=== PATIENT | male | born 1935 | race Caucasian/White ===

== ENCOUNTER 2023-01-27 10:10 | Outpatient (REF) | payer MEDICARE, SELFPAY ==
--- NOTE | ~2023-01-27 | XR_ITS ---
EXAMINATION: XR RIBS, LEFT CLINICAL INFORMATION: Contusion, fall COMPARISON: No prior exam available. TECHNIQUE: Chest frontal, multiple 5 oblique views. FINDINGS: RIBS: Mildly displaced fractures of the lateral aspect of the ninth rib. LUNGS AND FARIDA: There is infiltrate/atelectasis at left lung base. Blunting of left costophrenic angle probably small pleural effusion. PLEURA: Normal. Costophrenic angles are sharp, no pneumothorax. HEART: The heart is normal in size. MEDIASTINUM: The mediastinum is within normal limits.. XR/XR ribs LT min 3V w CXR1V IMPRESSION: * Mildly displaced fracture of the lateral aspect of the left ninth rib. * Infiltrate/atelectasis at left lung base. * Blunting of left costophrenic angle probably small pleural effusion.
== END 2023-01-27 10:11 | disposition home or self-care (01) ==
LOC: HO.HMGCX 10:10
PROVIDERS: Visit Provider Physician Assistant Medical
DX: S20.212A Contusion of left front wall of thorax, initial encounter (principal)
CPT/HCPCS: 71101

== ENCOUNTER 2023-03-22 07:47 | Inpatient (IN) | payer OTHER, MEDICARE, SELFPAY ==
[2023-03-22] VITALS (10 sets, daily range): BP systolic 108–166; BP diastolic 43–62; PULSE 76–101; RESP 12–24; TEMP 36.7–37.2; O2SAT 88–98; BMI 32.8; BMI 31.9
--- NOTE | ~2023-03-22 | US_ITS ---
EXAMINATION: BILATERAL LOWER EXTREMITY DEEP VENOUS ULTRASOUND CLINICAL INFORMATION: Bilateral lower extremity pain and swelling. COMPARISON: No similar prior examinations are available for comparison. TECHNIQUE: Duplex Doppler imaging with compression maneuvers were performed of the bilateral lower extremity deep venous systems. FINDINGS: The bilateral visualized common femoral, femoral and popliteal veins demonstrate normal compressibility and color flow without evidence of venous thrombosis. Visualized portions of the bilateral calf veins demonstrate normal color fill-in suggesting patency. There is no evidence of a Marsh's cyst. US/US venous duplex LE BI IMPRESSION: No evidence of deep venous thrombosis involving the bilateral lower extremities.
--- NOTE | ~2023-03-22 | XR_ITS ---
EXAMINATION: XR CHEST CLINICAL INFORMATION: Shortness of breath, hypoxia. COMPARISON: 01/27/2023 chest and rib radiographs. TECHNIQUE: Frontal view of the chest was obtained. FINDINGS: Mild increased pulmonary vascular markings are seen. Mild bibasilar linear markings. The heart and mediastinal structures are unremarkable multilevel sternotomy wires are seen in place. The superior most wire is fractured without significant displacement or change. 3 bone anchors overlie the right humeral head. XR/XR chest 1V IMPRESSION: Mild interval decrease in left basilar atelectasis/scarring. Mild increased residual markings could represent chronic changes/baseline for the patient. Mild congestion cannot be excluded.
--- NOTE | ~2023-03-22 | XR_ITS ---
EXAMINATION: XR ANKLE, LEFT CLINICAL INFORMATION: Abdominal pain, history of surgery. COMPARISON: None available. TECHNIQUE: AP, lateral, and mortise views of the left ankle. An indicator arrow points to the lateral malleolus. FINDINGS: Nonacute appearing deformity of the medial malleolus and distal fibula is seen. Mild tibiotalar degenerative joint changes are seen. The tarsal bones are normally aligned. Mild to moderate soft tissue swelling. XR/XR ankle LT min 3V IMPRESSION: 1. Nonacute appearing deformity of the medial malleolus and distal fibula suggesting old healed fractures. Mild to moderate soft tissue swelling. No overt acute fracture. 2. Mild tibiotalar osteoarthritis.
--- NOTE | ~2023-03-22 | CT_ITS ---
EXAMINATION: CT ANKLE WITH CONTRAST, LEFT CLINICAL INFORMATION: Left ankle pain. Evaluate for infection. COMPARISON: Radiographs 03/22/2023 TECHNIQUE: CT of the left ankle is performed following intravenous administration of 85 mL Omnipaque 350 iodinated contrast. Sagittal and coronal reformats were performed. This CT examination was performed using dose optimization techniques as appropriate, variously including the following: *Automated exposure control *Adjustment of mA and/or kV according to patient size (this includes techniques or standardized protocols for targeted exams where dose is matched to indication/reason for exam; i.e. extremities or head) *Use of iterative reconstruction technique DLP: 171mGy-cm FINDINGS: Postsurgical changes with evidence of previous hardware including an intramedullary nail of the distal tibia extended through the posterior aspect of the talus and the anterior aspect of the calcaneus, through the anterior aspect of the posterior subtalar facet joint. No effusion is evident. There is a predominantly ununited transverse fracture of the medial malleolus. A fracture of the distal fibula is nearly completely healed. There is an ununited fracture fragment at the lateral process of the talus. Bimalleolar subcutaneous edema without a localized or peripherally enhancing collection to indicate an abscess. The tract of prior hardware has a thin sclerotic margin, without evidence to suggest osteomyelitis. No erosions are demonstrated that would indicate osteomyelitis elsewhere. No acute osseous abnormality is evident. Diffuse vascular calcifications. CT/CT ankle LT w IV con IMPRESSION: Postsurgical changes with evidence of previous hardware placement as described. No evidence of osteomyelitis. No effusion. Bimalleolar subcutaneous edema without a localized or peripherally enhancing collection to indicate an abscess.
--- NOTE | 2023-03-22 07:59 | ED.EXTPRO ---
HPI - Extremity Problem General Chief complaint: Extremity Problem Stated complaint: PAIN/SWELLING R ANKLE SINCE YESTERDAY,INJURY UNK, Time Seen by Provider: 03/22/23 07:56 Source: patient, EMS and old records reviewed Mode of arrival: ambulatory Limitations: altered mental status (dementia) History of Present Illness HPI Narrative: 87-year-old male with history of dementia, diabetes, COPD on PRN O2, hx DVT/PE on Eliquis, recent fall with rib fractures in January,history of left ankle fracture s/p surgery complicated by septic arthritis requiring hardware removal in 2020 who presents to the ER from home for evaluation of left ankle pain and generalized weakness, unable to walk. Patient is a limited historian and offers no physical complaints on arrival. Patient's reports that last night he was up every hour or urinating. She is to use the urinal issues unable to bear weight on his left lower extremity. She reports he was complaining of pain in his left ankle. She thinks it is more swollen than usual. She denies any trauma or recent falls. Patient was on the toilet this morning and she was unable to get him up, he was very weak so she called 911. He has not had any fever or chills at home per his . Patient denies any chest pain, abdominal pain. He states his breathing is ?okay. He has not been using his PRN O2 at home. MD Complaint: extremity pain and extremity swelling Onset (ago): unknown Location: left and lower extremity Radiation: none Relieving factors: rest Exacerbating factors: range of motion, weight bearing, walking and palpation Associated symptoms: denies other symptoms Related Data Home Medications Medication Instructions Recorded Confirmed apixaban 5 mg tablet 5 mg PO BID 01/27/23 flash glucose sensor (FreeStyle #1 ea 01/27/23 Reva 14 Day Sensor kit) fluticasone furoate 50 inhalation 01/27/23 mcg/actuation blister powder for inhalation furosemide 40 mg tablet 40 mg PO DAILY 01/27/23 glucose 4 gram chewable tablet 4 g PO Q15M PRN 01/27/23 (Dex4 Glucose) insulin aspart U-100 100 unit/mL 20 unit subcut BID 01/27/23 (3 mL) subcutaneous pen (Novolog FlexPen U-100 Insulin aspart) insulin glargine 100 unit/mL 15 unit subcut QAM 01/27/23 subcutaneous solution neomycin 3.5 mg/g-polymyxin B ophthalmic (eye) 01/27/23 10,000 unit/g-dexameth 0.1 % eye oint pravastatin 40 mg tablet 40 mg PO DAILY 01/27/23 quetiapine 25 mg tablet 25 mg PO DAILY 01/27/23 Previous Rx's Medication Instructions Recorded cyclobenzaprine 5 mg tablet 5 mg PO TID PRN muscle spasm #14 01/27/23 tabs doxycycline monohydrate 100 mg 100 mg PO BID 7 days #14 caps 01/27/23 capsule Allergies Allergy/AdvReac Type Severity Reaction Status Date / Time codeine [Codeine] Allergy Unknown UNKNOWN Unverified 01/27/23 09:30 tetanus toxoid, adsorbed Allergy Unknown UNKNOWN Unverified 01/27/23 09:30 [Tetanus Toxoid,Adsorbed] Review of Systems Review of Systems: Yes all other systems are reviewed and are negative [facility] Social History Social History Alcohol intake: never Smoked in Last 30 Days: No Use of substances other than those prescribed or required for medical reasons: No Advance Directives: No Advance Directives Information Provided: Yes Physical Exam Vital Signs: Vital Signs: Last Vital Signs Temp 98.0 F 03/22/23 10:00 Pulse 94 03/22/23 12:42 Resp 12 03/22/23 12:42 BP 146/60 H 03/22/23 12:42 Pulse Ox 98 03/22/23 12:42 O2 Del Method Nasal Cannula 03/22/23 12:42 O2 Flow Rate 2 03/22/23 08:05 BMI result Body Mass Index 32.8 Appearance: Alert elderly male sitting in bed. Oriented X1. No acute distress. Head: normocephalic, atraumatic. Eyes: Pupils equal, round and reactive to light. ENT: Pharynx normal. No tonsillar swelling or exudate. Neck: Normal inspection. Neck supple. CVS: Normal heart rate and rhythm. Pulses normal. Respiratory: No respiratory distress. Breath sounds with end expiratory wheeze in the RUL anteriorly. Abdomen: Soft and nontender. +BS x4 Skin: Skin warm and dry. Normal skin color. Normal skin turgor. No rashes. Extremities: No lower extremity edema. Legs are warm and well perfused, left ankle with well-healed surgical scars. There is tenderness of the left medial and lateral ankle. No erythema or warmth. He has soft tissue tenderness of both anterior lower legs without any pitting edema, skin changes or warmth. Neuro/psych: Oriented X 1. Strength is equal and symmetrical throughout, generalized weakness noticed. CN II-XII intact. Normal speech. Course Reevaluation(s) Reevaluation #1: WBC 30157. Chest x-ray without evidence of pneumonia. Patient was dry heaving, retching when laying down for ultrasound of his lower extremities. Concern for possible aspiration. Patient's at the bedside and states he was urinating every hour last night which is not normal for him. He has history of UTI per her report. He also has history of bloodstream infection and possible spinal infection. Working on getting [facility] records. Time: 10:32 Reevaluation #2: Urinalysis is positive for infection. This is likely the etiology of his leukocytosis and generalized weakness. His lactic acid was normal. His renal function is 1.41. According to [facility] records he has a baseline creatinine around 1.0 from 2020. Time: 12:13 Medications Administered Discontinued Medications Generic Name Dose Route Start Last Admin Trade Name Freq PRN Reason Stop Dose Admin Albuterol/Ipratropium 3 ml 03/22/23 08:21 03/22/23 09:32 Albuterol/Iprat 2.5/0.5mg 3 Ml Ampul.Neb INHALE 03/22/23 08:22 3 ml ONCE ONE Administration Sodium Chloride 1,000 mls @ 999 mls/hr 03/22/23 09:30 03/22/23 10:07 Ns IV 03/22/23 10:30 999 mls/hr .Q1H1M RE Administration Piperacillin Sod/Tazobactam 50 mls @ 100 mls/hr 03/22/23 10:32 03/22/23 12:02 Sod 3.375 gm/ Sodium Chloride IV 03/22/23 11:01 Infused ONCE ONE Infusion Ondansetron HCl 4 mg 03/22/23 09:19 03/22/23 09:26 Ondansetron Hcl 4 Mg/2 Ml Vial IVPUSH 03/22/23 09:20 4 mg ONCE ONE Administration Medical Decision Making Medical Decision Making MDM Narrative: 87-year-old male with history of dementia, diabetes, COPD on PRN O2, hx DVT/PE on Eliquis, recent fall with rib fractures in January,history of left ankle fracture s/p surgery complicated by septic arthritis requiring hardware removal in 2020 who presents to the ER from home for evaluation of left ankle pain and generalized weakness, unable to walk. endorses increased urinary frequency overnight. He used tachypneic, tachycardic with mild hypoxia on arrival, SpO2 88%. He has some wheezing on the right side, given albuterol with improvement. Placed on 2 L with improvement in his saturations. Chest x-ray reviewed, does not look like he has a pneumonia, although he was retching and dry heaving, there is concern for aspiration. His labs showed a leukocytosis of 19,000. He was covered with Zosyn for concern of possible urinary versus abdominal verses pulmonary etiology. Lactic acid is normal. There is no evidence of severe sepsis at this time. Will plan to admit the patient for IV antibiotics and further monitoring. Differential Diagnosis Differential Diagnoses: The differential diagnosis associated with the presentation includes Sepsis, UTI, aspiration pneumonia, gastroenteritis, cellulitis, no evidence of recurrent ankle infection or ankle fracture Admission/Observation Consideration of admission/observation: Escalation of care including admission/observation considered meets sepsis criteria, will require admission Consult Healthcare Provider Management of the patient was discussed with: Hospitalist Lab Data MDM Lab Attestation statement: I reviewed the patient's lab results. Significant leukocytosis, stable anemia, mild DAVID and hyperglycemia without evidence of metabolic acidosis 03/22/23 08:30 03/22/23 08:30 Labs: Lab Results 03/22/23 03/22/23 03/22/23 Range/Units 08:30 08:30 08:30 WBC 19.0 H (4.8-10.8) X10*3/uL RBC 4.38 L (4.60-5.80) X10*6/uL Hgb 12.4 L (14.0-18.0) g/dl Hct 38.8 L (42.0-52.0) % MCV 88.6 (80.0-98.0) fL MCH 28.3 (27.0-33.0) pg MCHC 32.0 (31.0-36.0) g/dl RDW 16.7 H (11.0-16.0) % Plt Count 325 (160-400) X10*3/uL MPV 10.0 (9.4-12.4) fL Immature Gran % (Auto) 0.4 (0.0-0.4) % Neut % (Auto) 73.5 H (45-73) % Lymph % (Auto) 14.7 L (20-40) % [place] % (Auto) 10.8 (2-11) % Eos % (Auto) 0.1 (0-4) % Baso % (Auto) 0.5 (0-2) % Lymph # (Auto) 2.8 (1.2-4.9) X10*3/uL [place] # (Auto) 2.1 H (0.1-1.2) X10*3/uL Eos # (Auto) 0.0 (0.0-0.4) X10*3/uL Baso # (Auto) 0.1 (0.0-0.2) X10*3/uL Abs Immat Gran (auto) 0.07 H (0.00-0.03) X10*3/uL Absolute Neuts (auto) 14.0 H (2.0-8.3) x10*3/uL Absolute Nucleated RBC 0.000 (0.0-0.012) X10*3/uL Nucleated RBC % (auto) 0.0 (0.0-0.2) /100WBC Smear Tech's Comments VERIFIED VBG pH (7.32-7.43) VBG pCO2 mmHg VBG pO2 mmHg VBG HCO3 (22-26) mmol/L VBG O2 Saturation % VBG Base Excess mmol/L Sodium 135 (135-145) mmol/L Potassium 4.6 (3.3-5.1) mmol/L Chloride 100 (96-108) mmol/L Carbon Dioxide 23 (22-29) mmol/L Anion Gap 17 (12-20) BUN 20 H (9-16) mg/dL Creatinine 1.41 H (0.5-1.4) mg/dL Estim Creat Clear Calc 42.6 Estimated GFR 48 Random Glucose 300 H (60-115) mg/dL Lactic Acid (0.5-2.0) mmol/L Calcium 9.9 (8.4-10.2) mg/dL Magnesium 1.7 (1.6-2.6) mg/dL Total Bilirubin 0.8 (0.0-1.0) mg/dL Direct Bilirubin 0.3 (0.0-0.5) mg/dL AST 20 (5-37) U/L ALT 14 (0-40) U/L Alkaline Phosphatase 106 (39-117) U/L B-Natriuretic Peptide 93 (<100) pg/mL Total Protein 7.6 (6.5-8.0) g/dL Albumin 3.8 (3.5-5.0) g/dL Procalcitonin ng/mL Urine Color Urine Appearance Urine pH (5.0-9.0) Ur Specific [place] (1.005-1.025) Urine Protein (Neg-Trace) mg/dL Urine Glucose (UA) (Negative) mg/dL Urine Ketones (Negative) mg/dL Urine Blood (Negative) Urine Nitrite (Negative) Ur Leukocyte Esterase (Negative) Urine RBC (0-2) /HPF Urine WBC (0-5) /HPF Ur Squamous Epith Cells (0-2) /HPF Urine Bacteria (None Seen) Hyaline Casts (0-2) /LPF 03/22/23 03/22/23 03/22/23 Range/Units 11:02 11:07 11:08 WBC (4.8-10.8) X10*3/uL RBC (4.60-5.80) X10*6/uL Hgb (14.0-18.0) g/dl Hct (42.0-52.0) % MCV (80.0-98.0) fL MCH (27.0-33.0) pg MCHC (31.0-36.0) g/dl RDW (11.0-16.0) % Plt Count (160-400) X10*3/uL MPV (9.4-12.4) fL Immature Gran % (Auto) (0.0-0.4) % Neut % (Auto) (45-73) % Lymph % (Auto) (20-40) % [place] % (Auto) (2-11) % Eos % (Auto) (0-4) % Baso % (Auto) (0-2) % Lymph # (Auto) (1.2-4.9) X10*3/uL [place] # (Auto) (0.1-1.2) X10*3/uL Eos # (Auto) (0.0-0.4) X10*3/uL Baso # (Auto) (0.0-0.2) X10*3/uL Abs Immat Gran (auto) (0.00-0.03) X10*3/uL Absolute Neuts (auto) (2.0-8.3) x10*3/uL Absolute Nucleated RBC (0.0-0.012) X10*3/uL Nucleated RBC % (auto) (0.0-0.2) /100WBC Smear Tech's Comments VBG pH 7.47 H (7.32-7.43) VBG pCO2 30 mmHg VBG pO2 185 mmHg VBG HCO3 22 (22-26) mmol/L VBG O2 Saturation 99.0 % VBG Base Excess -0.3 mmol/L Sodium (135-145) mmol/L Potassium (3.3-5.1) mmol/L Chloride (96-108) mmol/L Carbon Dioxide (22-29) mmol/L Anion Gap (12-20) BUN (9-16) mg/dL Creatinine (0.5-1.4) mg/dL Estim Creat Clear Calc Estimated GFR Random Glucose (60-115) mg/dL Lactic Acid 2.0 (0.5-2.0) mmol/L Calcium (8.4-10.2) mg/dL Magnesium (1.6-2.6) mg/dL Total Bilirubin (0.0-1.0) mg/dL Direct Bilirubin (0.0-0.5) mg/dL AST (5-37) U/L ALT (0-40) U/L Alkaline Phosphatase (39-117) U/L B-Natriuretic Peptide (<100) pg/mL Total Protein (6.5-8.0) g/dL Albumin (3.5-5.0) g/dL Procalcitonin 0.10 ng/mL Urine Color Urine Appearance Urine pH (5.0-9.0) Ur Specific [place] (1.005-1.025) Urine Protein (Neg-Trace) mg/dL Urine Glucose (UA) (Negative) mg/dL Urine Ketones (Negative) mg/dL Urine Blood (Negative) Urine Nitrite (Negative) Ur Leukocyte Esterase (Negative) Urine RBC (0-2) /HPF Urine WBC (0-5) /HPF Ur Squamous Epith Cells (0-2) /HPF Urine Bacteria (None Seen) Hyaline Casts (0-2) /LPF 03/22/23 Range/Units 11:39 WBC (4.8-10.8) X10*3/uL RBC (4.60-5.80) X10*6/uL Hgb (14.0-18.0) g/dl Hct (42.0-52.0) % MCV (80.0-98.0) fL MCH (27.0-33.0) pg MCHC (31.0-36.0) g/dl RDW (11.0-16.0) % Plt Count (160-400) X10*3/uL MPV (9.4-12.4) fL Immature Gran % (Auto) (0.0-0.4) % Neut % (Auto) (45-73) % Lymph % (Auto) (20-40) % [place] % (Auto) (2-11) % Eos % (Auto) (0-4) % Baso % (Auto) (0-2) % Lymph # (Auto) (1.2-4.9) X10*3/uL [place] # (Auto) (0.1-1.2) X10*3/uL Eos # (Auto) (0.0-0.4) X10*3/uL Baso # (Auto) (0.0-0.2) X10*3/uL Abs Immat Gran (auto) (0.00-0.03) X10*3/uL Absolute Neuts (auto) (2.0-8.3) x10*3/uL Absolute Nucleated RBC (0.0-0.012) X10*3/uL Nucleated RBC % (auto) (0.0-0.2) /100WBC Smear Tech's Comments VBG pH (7.32-7.43) VBG pCO2 mmHg VBG pO2 mmHg VBG HCO3 (22-26) mmol/L VBG O2 Saturation % VBG Base Excess mmol/L Sodium (135-145) mmol/L Potassium (3.3-5.1) mmol/L Chloride (96-108) mmol/L Carbon Dioxide (22-29) mmol/L Anion Gap (12-20) BUN (9-16) mg/dL Creatinine (0.5-1.4) mg/dL Estim Creat Clear Calc Estimated GFR Random Glucose (60-115) mg/dL Lactic Acid (0.5-2.0) mmol/L Calcium (8.4-10.2) mg/dL Magnesium (1.6-2.6) mg/dL Total Bilirubin (0.0-1.0) mg/dL Direct Bilirubin (0.0-0.5) mg/dL AST (5-37) U/L ALT (0-40) U/L Alkaline Phosphatase (39-117) U/L B-Natriuretic Peptide (<100) pg/mL Total Protein (6.5-8.0) g/dL Albumin (3.5-5.0) g/dL Procalcitonin ng/mL Urine Color Yellow Urine Appearance Cloudy Urine pH 6.5 (5.0-9.0) Ur Specific [place] 1.025 (1.005-1.025) Urine Protein 30 (1+) H (Neg-Trace) mg/dL Urine Glucose (UA) >=1000 H (Negative) mg/dL Urine Ketones Trace (Negative) mg/dL Urine Blood Trace H (Negative) Urine Nitrite Negative (Negative) Ur Leukocyte Esterase Moderate (2+) H (Negative) Urine RBC 0-2 (0-2) /HPF Urine WBC >50 H (0-5) /HPF Ur Squamous Epith Cells 0-2 (0-2) /HPF Urine Bacteria 4+ (None Seen) Hyaline Casts 0-2 (0-2) /LPF Independent Interpretation I performed an independent interpretation of an: Plain X-Ray and Ultrasound Interpretation: X-ray reviewed, no focal pneumonia appreciated, agree with radiologist's read. Ultrasound of the lower extremities reviewed, no evidence of blood clots, agree with radiologist read Radiology Impression Discussion of test interpretation with radiology: I have reviewed the radiologist's reading. Radiologist Impression: XR/XR ankle LT min 3V IMPRESSION: 1.? Nonacute appearing deformity of the medial malleolus and distal fibula suggesting old healed fractures. Mild to moderate soft tissue swelling. No overt acute fracture. 2.? Mild tibiotalar osteoarthritis. ?US/US venous duplex LE BI IMPRESSION: No evidence of deep venous thrombosis involving the bilateral lower extremities. ?XR/XR chest 1V IMPRESSION: Mild interval decrease in left basilar atelectasis/scarring. Mild increased residual markings could represent chronic changes/baseline for the patient. Mild congestion cannot be excluded. Independent Historian Clinical information obtained from an independent historian. History obtained from or confirmed by: Spouse and EMS External Record Review External record reviewed: Inpatient record, Office record, Outpatient record, Prior outpatient labs, Prior outpatient radiology and Outside ED record Prescription Management I considered prescription management with: Pain Medication and Antibiotic Chronic Conditions Patient?s care impacted by: Diabetes and Hypertension Critical Care Time Critical Care Time Critical Care Time: Yes Total Critical Care Time: 44 Attestation: I have personally provided critical care time exclusive of time spent on separately billable procedures. Time includes review of lab data, radiology results, discussion with consultants, and monitoring for potential decompensation. Intervention performed as documented. Discharge Plan Discharge Clinical Impression: Sepsis, Acute UTI Patient Disposition: Admitted As Inpatient
--- NOTE | 2023-03-22 08:10 | PC.NURSE ---
Initial contact with pt. pt unable to articulate his complaints. when prompted states both ankles hurt, L worse than R. swelling noted to L ankle, tender when touched. call [facility]arland provided to patient. awaiting MD rivera.
[2023-03-22 08:48] LABS: Basophils Absolute Auto 0.1 X10*3/uL (0.0-0.2); Basophils Percent Auto 0.5 % (0-2); Eosinophils Percent Auto 0.1 % (0-4); Hematocrit 38.8 % (42.0-52.0); Hemoglobin 12.4 g/dl (14.0-18.0); Imm Gran Abs Auto 0.07 X10*3/uL (0.00-0.03); Imm Gran Pct Auto 0.4 % (0.0-0.4); Lymphocytes Absolute Auto 2.8 X10*3/uL (1.2-4.9); Lymphocytes Percent Auto 14.7 % (20-40); MANUAL DIFF FLAG SCAN; Mean Corpuscular Hemoglobin 28.3 pg (27.0-33.0); Mean Corpuscular Volume 88.6 fL (80.0-98.0); Monocytes Absolute Auto 2.1 X10*3/uL (0.1-1.2); Monocytes Percent Auto 10.8 % (2-11); Neutrophils Percent Auto 73.5 % (45-73); Platelet Count 325 X10*3/uL (160-400); Red Blood Count 4.38 X10*6/uL (4.60-5.80); Red Cell Distribution Width 16.7 % (11.0-16.0); SCAN SMEAR FLAG 1
[2023-03-22 09:03] LABS: Alanine Aminotransferase 14 U/L (0-40); Albumin Level 3.8 g/dL (3.5-5.0); Alkaline Phosphatase 106 U/L (39-117); Anion Gap 17 (12-20); Aspartate Amino Transferase 20 U/L (5-37); Bilirubin Direct 0.3 mg/dL (0.0-0.5); Bilirubin Total 0.8 mg/dL (0.0-1.0); Blood Urea Nitrogen 20 mg/dL (9-16); Calcium 9.9 mg/dL (8.4-10.2); Carbon Dioxide 23 mmol/L (22-29); Chloride 100 mmol/L (96-108); Creatinine Clr Calc Pharmacy 42.6; Estimated Glomerular Filt Rate 48; Glucose Random 300 mg/dL (60-115); Magnesium 1.7 mg/dL (1.6-2.6); Potassium 4.6 mmol/L (3.3-5.1); SLIDE REVIEW VERIFIED; Sodium 135 mmol/L (135-145); Total Protein 7.6 g/dL (6.5-8.0)
[2023-03-22 09:13] LABS: B Type Natriuretic Peptide 93 pg/mL (<100)
[2023-03-22] MEDS: ondansetron HCL 4 MG/2 ML VIAL IVPUSH (09:26)
[2023-03-22] MEDS: Albuterol/Iprat 2.5/0.5MG 3 ML AMPUL.NEB INHALE (09:32)
[2023-03-22] MEDS: 0.9 % Sodium Chloride 1,000 ML 999 ML IV (10:07)
[2023-03-22 11:13] LABS: Venous Blood Gas Refer to POC result
[2023-03-22] MEDS: Piperacillin Sodium/Tazobactam 3.375 GM in 0.9 % Sodium Chloride 50 ML IV (11:32)
--- NOTE | 2023-03-22 11:34 | PC.NURSE ---
blood cultures and labs drawn by phlebotomy. abx hung per order
[2023-03-22 11:40] LABS: VBG Base Excess -0.3 mmol/L; VBG HCO3 22 mmol/L (22-26); VBG pCO2 30 mmHg; VBG pH 7.47 (7.32-7.43); VBG pO2 185 mmHg
[2023-03-22 11:56] LABS: Appearance Urine Cloudy; Color Urine Yellow; Glucose Urine UA >=1000 mg/dL (Negative); Leukocyte Esterase Urine Moderate (2+) (Negative); Nitrite Urine Negative (Negative); PH 6.5 (5.0-9.0); Specific Gravity - Urine 1.025 (1.005-1.025); UMIC TRIGGER UACC YES; Urine Blood Trace (Negative); Urine Ketones Trace mg/dL (Negative); Urine Protein 30 (1+) mg/dL (Neg-Trace)
[2023-03-22 11:59] LABS: Bacteria Urine 4+ (None Seen); Hyaline Casts Urine 0-2 /LPF (0-2); RBC Urine 0-2 /HPF (0-2); Squamous Epithelial Cell Urine 0-2 /HPF (0-2); UACC Culture Trigger YES; WBC Urine >50 /HPF (0-5)
--- NOTE | 2023-03-22 13:40 | P.HPHOSP_ITS ---
History of Present Illness Date of Service: 03/22/23 <ANA LILIA Kent - Last Filed: 03/22/23 15:51> Attending physician on admission: Adam Triana <ANA LILIA Kent - Last Filed: 03/22/23 15:51> Chief Complaint: weakness <ANA LILIA Kent - Last Filed: 03/22/23 15:51> This is an 87-year-old male with history of dementia, diabetes who was brought to the emergency department by his due to increasing weakness and urinary frequency. Due to patient's dementia he is unable to provide any significant history, history was obtained from his over the phone. She states that overnight he was urinating more frequently than usual and also had increasing generalized weakness with difficulty transferring in and out of his wheelchair. She states that he was unable to bear weight on his left leg. In the emergency department workup was significant for leukocytosis of 19,000, urinalysis concerning for urinary tract infection. Left leg appeared somewhat edematous and DVT study was obtained and negative for DVT. Left ankle x-ray also unremarkable for any acute change. Lactic acid was 2, procalcitonin 0.10. Oxygen saturation noted to be 88% on room air and therefore chest x-ray obtained which was relatively unremarkable. He received breathing treatment and improved. He was treated with IV antibiotics and the decision was made to admit him to the hospital for further management of probable acute urinary tract infection. Unable to obtain full ROS due to dementia, poor historian. He states that he f eels fine and has no specific complaints. <ANA LILIA Kent - Last Filed: 03/22/23 15:51> [facility] Medical History: Medical History COPD (chronic obstructive pulmonary disease) Dementia Diabetes Pulmonary embolism <ANA LILIA Ketn - Last Filed: 03/22/23 15:51> Family History: Family History Other Diabetes <ANA LILIA Kent - Last Filed: 03/22/23 15:51> Social History: Social History (Updated 03/22/23 @ 13:45 by ANA LILIA Kent) Household Members: Spouse Housing: House Do you presently have visiting nurse or other home services: No Alcohol intake: never Patient Tobacco Use Status: Never used Tobacco Smoked in Last 30 Days: No Use of substances other than those prescribed or required for medical reasons: No Have you been hit, kicked, punched, or otherwise hurt by someone within the past year? If so, by whom?: No Do you feel safe in your current relationship?: Yes Is there a partner from a previous relationship who is making you feel unsafe now?: No Are you made to feel afraid or neglected: No [facility] Practices: [employer]; [facility] Advance Directives: No Advance Directives Information Provided: Yes Do you have thoughts of harming others: None Do you have a plan to hurt others: No Plan Recently lost weight without trying: No Nutrition Risks: No Nutritional Risk Poor oral hygiene: No <ANA LILIA Kent - Last Filed: 03/22/23 15:51> Meds Allergies/Adverse reactions: Allergies Allergy/AdvReac Type Severity Reaction Status Date / Time codeine [Codeine] Allergy Unknown UNKNOWN Unverified 01/27/23 09:30 tetanus toxoid, adsorbed Allergy Unknown UNKNOWN Unverified 01/27/23 09:30 [Tetanus Toxoid,Adsorbed] <ANA LILIA Kent - Last Filed: 03/22/23 15:51> Active Medications: Current Medications Pharmacy Consult (Consult Rx Perform Med Rec) 1 each MISCELLANE ONCE PRN PRN Reason: Consult order <ANA LILIA Kent - Last Filed: 03/22/23 15:51> Home medications: Home Medications Medication Instructions Recorded Confirmed Last Taken Type apixaban 5 mg tablet 2.5 mg PO BID 01/27/23 03/22/23 Unknown History flash glucose sensor (FreeStyle #1 ea 01/27/23 Unknown History Reva 14 Day Sensor kit) furosemide 40 mg tablet 40 mg PO DAILY 01/27/23 03/22/23 Unknown History glucose 4 gram chewable tablet 4 g PO Q15M PRN Hypoglycemia 01/27/23 03/22/23 Unknown History (Dex4 Glucose) insulin aspart U-100 100 unit/mL 22 unit subcut DAILY@1700 04/08/23 06/01/23 U nknown History (3 mL) subcutaneous pen (Novolog FlexPen U-100 Insulin aspart) insulin glargine 100 unit/mL 15 unit subcut DAILY 01/27/23 03/22/23 Unknown History subcutaneous solution pravastatin 40 mg tablet 40 mg PO DAILY 01/27/23 03/22/23 Unknown History quetiapine 25 mg tablet 12.5 mg PO DAILY 01/27/23 03/22/23 Unknown History insulin aspart U-100 100 unit/mL 6 unit subcut DAILY@1300 03/22/23 03/22/23 Unknown History (3 mL) subcutaneous pen (Novolog FlexPen U-100 Insulin aspart) insulin aspart U-100 100 unit/mL 18 unit subcut DAILY@0900 03/22/23 03/22/23 Unknown History (3 mL) subcutaneous pen (Novolog FlexPen U-100 Insulin aspart) insulin glargine 100 unit/mL 22 unit subcut BEDTIME 03/22/23 03/22/23 Unknown History subcutaneous solution (Lantus U-100 Insulin) multivitamin 1 tab PO DAILY 03/22/23 03/22/23 Unknown History omega-3 fatty acids-fish oil 360 2 cap PO DAILY 03/22/23 03/22/23 Unknown History mg-1,200 mg capsule (Fish Oil) tiotropium bromide 2.5 2 puff inhalation DAILY 03/22/23 03/22/23 Unknown History mcg/actuation mist for inhalation (Spiriva Respimat) <ANA LILIA Kent - Last Filed: 03/22/23 15:51> Physical Exam Vital Signs and Narrative: Vital Signs: Last Vital Signs Temp 98.0 F 03/22/23 10:00 Pulse 94 03/22/23 12:42 Resp 12 03/22/23 12:42 BP 146/60 H 03/22/23 12:42 Pulse Ox 98 03/22/23 12:42 O2 Del Method Nasal Cannula 03/22/23 12:42 O2 Flow Rate 2 03/22/23 08:05 BMI result Body Mass Index 32.8 <ANA LILIA Kent - Last Filed: 03/22/23 15:51> Const: General: cooperative, comfortable, no acute distress, alert and awake <ANA LILIA Kent - Last Filed: 03/22/23 15:51> Nutritional Appearance: overweight <ANA LILIA Kent - Last Filed: 03/22/23 15:51> Orientation/consciousness: oriented to person and oriented to place (knows he is in some kind of hospital ) <ANA LILIA Kent - Last Filed: 03/22/23 15:51> Resp: Effort & Inspection: normal respiratory effort, able to speak in complete sentences, no respiratory distress and no use of accessory muscles <ANA LILIA Kent - Last Filed: 03/22/23 15:51> Auscultation: clear to auscultation bilaterally <ANA LILIA Kent - Last Filed: 03/22/23 15:51> Cardio: Rate: regular rate <ANA LILIA Kent - Last Filed: 03/22/23 15:51> Heart sounds: S1 normal heart sound present and S2 normal heart sound present <ANA LILIA Kent - Last Filed: 03/22/23 15:51> GI: Inspection: No distended <ANA LILIA Kent - Last Filed: 03/22/23 15:51> Palpation (GI): Soft to palpation and nontender <ANA LILIA Kent - Last Filed: 03/22/23 15:51> Neuro: Other: grossly nonfocal <ANA LILIA Kent - Last Filed: 03/22/23 15:51> General: oriented to person, oriented to place (knows he is in some kind of hospital ) and moves all extremities <ANA LILIA Kent - Last Filed: 03/22/23 15:51> Extrem: Other: LLE with swelling, no erythema. does not appear to be significantly tender on palpation <ANA LILIA Kent - Last Filed: 03/22/23 15:51> Results Labs CBC and Chem 7: 03/22/23 08:30 03/22/23 08:30 <ANA LILIA Kent - Last Filed: 03/22/23 15:51> Labs: Laboratory Results - last 24 hr 03/22/23 03/22/23 03/22/23 08:30 08:30 08:30 MCV 88.6 MCH 28.3 MCHC 32.0 RDW 16.7 H Plt Count 325 MPV 10.0 Immature Gran % (Auto) 0.4 Neut % (Auto) 73.5 H Lymph % (Auto) 14.7 L [place] % (Auto) 10.8 Eos % (Auto) 0.1 Baso % (Auto) 0.5 Lymph # (Auto) 2.8 [place] # (Auto) 2.1 H Eos # (Auto) 0.0 Baso # (Auto) 0.1 Abs Immat Gran (auto) 0.07 H Absolute Neuts (auto) 14.0 H Absolute Nucleated RBC 0.000 Nucleated RBC % (auto) 0.0 Smear Tech's Comments VERIFIED VBG pH VBG pCO2 VBG pO2 VBG HCO3 VBG O2 Saturation VBG Base Excess Anion Gap 17 Estim Creat Clear Calc 42.6 Estimated GFR 48 Random Glucose 300 H Lactic Acid Calcium 9.9 Magnesium 1.7 Total Bilirubin 0.8 Direct Bilirubin 0.3 AST 20 ALT 14 Alkaline Phosphatase 106 B-Natriuretic Peptide 93 Total Protein 7.6 Albumin 3.8 Procalcitonin Urine Color Urine Appearance Urine pH Ur Specific [place] Urine Protein Urine Glucose (UA) Urine Ketones Urine Blood Urine Nitrite Ur Leukocyte Esterase Urine RBC Urine WBC Ur Squamous Epith Cells Urine Bacteria Hyaline Casts 03/22/23 03/22/23 03/22/23 11:02 11:07 11:08 MCV MCH MCHC RDW Plt Count MPV Immature Gran % (Auto) Neut % (Auto) Lymph % (Auto) [place] % (Auto) Eos % (Auto) Baso % (Auto) Lymph # (Auto) [place] # (Auto) Eos # (Auto) Baso # (Auto) Abs Immat Gran (auto) Absolute Neuts (auto) Absolute Nucleated RBC Nucleated RBC % (auto) Smear Tech's Comments VBG pH 7.47 H VBG pCO2 30 VBG pO2 185 VBG HCO3 22 VBG O2 Saturation 99.0 VBG Base Excess -0.3 Anion Gap Estim Creat Clear Calc Estimated GFR Random Glucose Lactic Acid 2.0 Calcium Magnesium Total Bilirubin Direct Bilirubin AST ALT Alkaline Phosphatase B-Natriuretic Peptide Total Protein Albumin Procalcitonin 0.10 Urine Color Urine Appearance Urine pH Ur Specific [place] Urine Protein Urine Glucose (UA) Urine Ketones Urine Blood Urine Nitrite Ur Leukocyte Esterase Urine RBC Urine WBC Ur Squamous Epith Cells Urine Bacteria Hyaline Casts 03/22/23 11:39 MCV MCH MCHC RDW Plt Count MPV Immature Gran % (Auto) Neut % (Auto) Lymph % (Auto) [place] % (Auto) Eos % (Auto) Baso % (Auto) Lymph # (Auto) [place] # (Auto) Eos # (Auto) Baso # (Auto) Abs Immat Gran (auto) Absolute Neuts (auto) Absolute Nucleated RBC Nucleated RBC % (auto) Smear Tech's Comments VBG pH VBG pCO2 VBG pO2 VBG HCO3 VBG O2 Saturation VBG Base Excess Anion Gap Estim Creat Clear Calc Estimated GFR Random Glucose Lactic Acid Calcium Magnesium Total Bilirubin Direct Bilirubin AST ALT Alkaline Phosphatase B-Natriuretic Peptide Total Protein Albumin Procalcitonin Urine Color Yellow Urine Appearance Cloudy Urine pH 6.5 Ur Specific [place] 1.025 Urine Protein 30 (1+) H Urine Glucose (UA) >=1000 H Urine Ketones Trace Urine Blood Trace H Urine Nitrite Negative Ur Leukocyte Esterase Moderate (2+) H Urine RBC 0-2 Urine WBC >50 H Ur Squamous Epith Cells 0-2 Urine Bacteria 4+ Hyaline Casts 0-2 <ANA LILIA Kent - Last Filed: 03/22/23 15:51> Imaging Radiologist's Impressions: Impressions Chest X-Ray 03/22/23 08:40 IMPRESSION: Mild interval decrease in left basilar atelectasis/scarring. Mild increased residual markings could represent chronic changes/baseline for the patient. Mild congestion cannot be excluded. Venous Duplex 03/22/23 10:22 IMPRESSION: No evidence of deep venous thrombosis involving the bilateral lower extremities. Ankle X-Ray 03/22/23 11:30 IMPRESSION: 1. Nonacute appearing deformity of the medial malleolus and distal fibula suggesting old healed fractures. Mild to moderate soft tissue swelling. No overt acute fracture. 2. Mild tibiotalar osteoarthritis. <ANA LILIA Kent - Last Filed: 03/22/23 15:51> Assessment and Plan (1) Acute UTI: Status: Acute <ANA LILIA Kent - Last Filed: 03/22/23 15:51> This is an 87-year-old male with history of dementia, diabetes, COPD on as needed supplemental oxygen, history of DVT/PE on Eliquis who presents to the emergency department with increased urinary frequency and weakness found to have acute urinary tract infection Sepsis secondary to UTI Met criteria with tachycardia and leukocytosis Will start IV ceftriaxone Follow results of urine culture, blood cultures Left leg pain DVT study negative for clot h/o ankle fx with resulting septic arthritis and hardware removal - Xray negative for acute changes, no erythema on exam Diabetes SSI, POCs, ADA diet continue long acting insulin at lower dose h/o PE/DVT will continue AC when med rec complete h/o COPD on prn home o2. o2 88 % on room air. CXR negative for definitive infection, no wheezing. no acute exacerbation at this time dvt ppx - home AC - will resume when med rec complete HCP- Code status-DNR/DNI. Discussed with attending - Dr. Triana med rec pending at time of admission Due to sepsis secondary to UTI and need for IV antibiotics patient will likely require 2 midnight stay in the hospital. <ANA LILIA Kent - Last Filed: 03/22/23 15:51> This is an 87-year-old male with history of dementia, diabetes, COPD on as needed supplemental oxygen, history of DVT/PE on Eliquis who presents to the emergency department with increased urinary frequency and weakness found to have acute urinary tract infection Sepsis secondary to UTI Met criteria with tachycardia and leukocytosis Will start IV ceftriaxone Follow results of urine culture, blood cultures Left leg pain DVT study negative for clot h/o ankle fx with resulting septic arthritis and hardware removal - Xray negative for acute changes, no erythema on exam Diabetes SSI, POCs, ADA diet continue long acting insulin at lower dose h/o PE/DVT will continue AC when med rec complete h/o COPD on prn home o2. o2 88 % on room air. CXR negative for definitive infection, no wheezing. no acute exacerbation at this time dvt ppx - home AC - will resume when med rec complete HCP- Code status-DNR/DNI. Discussed with attending - Dr. Triana med rec pending at time of admission Due to sepsis secondary to UTI and need for IV antibiotics patient will likely require 2 midnight stay in the hospital. Addendum to history and physical by the advanced practice provider, ANA LILIA Starks I interviewed and examined the patient. I discussed their presentation and management with the JIMMIE. I reviewed the history and physical and agree with the documentation, with the following additions and corrections: 87yo M with dementia, DM2, COPD on prn O2, hx DVT/PE on apixaban, presenting with urinary frequency + weakness, found to be septic with likely UTI source Plan admit to [facility], give ceftriaoxne, follow urine + blood cultures <Adam Triana MD - Last Filed: 03/22/23 18:35> Time Spent With Patient Time: Total time managing care of this patient today ____ minutes. <ANA LILIA Kent - Last Filed: 03/22/23 15:51> Quality Stroke Does the patient have a stroke diagnosis?: No <ANA LILIA Kent - Last Filed: 03/22/23 15:51> VTE Prior VTE?: No <ANA LILIA Kent - Last Filed: 03/22/23 15:51> VTE Risk Level:: Medical - moderate - high <ANA LILIA Kent - Last Filed: 03/22/23 15:51> VTE Device Contraindication: N/A - Device Ordered <ANA LILIA Kent - Last Filed: 03/22/23 15:51> VTE Drug Contraindication: N/A - Med Ordered <ANA LILIA Kent - Last Filed: 03/22/23 15:51>
[2023-03-22] MEDS: cefTRIAXone sodium 1 GM in 0.9 % Sodium Chloride 50 ML IV (14:57)
--- NOTE | 2023-03-22 15:56 | MHC.CM.PN ---
Addendum entered by Yasmin Campos 03/22/23 16:04: Pt with hx of dementia. CM called , Liliana and left a message for her to return call for admission and discharge planning. Original Note: CM attempted to meet with patient in regards to discharge planning, but pt is sleeping. No family present. Will meet when patient wakes.
--- NOTE | 2023-03-22 16:27 | PC.NURSE ---
pt IV fluids running very slowly.
[2023-03-22 18:17] LABS: Glucose, Whole Blood 430 mg/dL (60-115)
[2023-03-22] MEDS: Insulin Lispro 100 UNIT/ML 3 ML VIAL SUBCUT ×2 (18:38→20:35)
[2023-03-22 20:01] LABS: Glucose, Whole Blood 385 mg/dL (60-115)
[2023-03-22] MEDS: Apixaban 2.5 MG TABLET PO (20:36)
[2023-03-22] MEDS: Insulin Glargine,Hum.rec.anlog 100 UNIT/ML 10 ML VIAL 10 UNIT SUBCUT (20:36)
--- NOTE | 2023-03-22 21:00 | MHC.CM.PN ---
IMM 03/22. Reviewed with /HCP Liliana Faith ([phone]) as pt has dementia and is a poor historian. Copy left at bedside per 's request. CM interview on telephone with . Lives with of 63 years.Has a walker, but is non-ambulatory and uses his wheelchair. Pt has been able to self transfer to toilet and bed independently until last night. Pt very weak and c/o leg pain. Pt has no services. Is an [employer] . Has [facility] at [facility]. PCP is Dr. Braxton at [facility]. Uses [facility] and obtains hearing aides from [facility]. is unsure if patient is vet connected. Pt has oxygen at home, but has not used it in about 1 year. feels HCP copy is at [facility], as patient usually gets his care there. Moderna x2, Pfizer x1. is requesting that patient be discharged home if he can self transfer, as she cares her him herself. If patient cannot self transfer, then he will need STR. is requesting referral to [facility] in . Pt will need PT assessment. Referral placed to [facility]. CM following for discharge planning.
[2023-03-23] VITALS (9 sets, daily range): BP systolic 113–144; BP diastolic 51–65; PULSE 77–87; RESP 16–22; TEMP 35.6–37.6; O2SAT 92–95
[2023-03-23] MEDS: 0.9 % Sodium Chloride Flush 3 ML SYRINGE IVFLUSH ×3 (00:02→14:19)
--- NOTE | 2023-03-23 02:22 | PC.NURSE ---
03/22/23 @ 1999; poc 385, patient on an adjusted sliding scale; 15 units humalog per sliding scale, and scheduled bedtime [address] Peters made aware, no new orders at this time.
[2023-03-23 07:28] LABS: Hematocrit 36.4 % (42.0-52.0); Hemoglobin 11.1 g/dl (14.0-18.0); Mean Corpuscular HGB Conc 30.5 g/dl (31.0-36.0); Mean Corpuscular Hemoglobin 27.6 pg (27.0-33.0); Mean Corpuscular Volume 90.5 fL (80.0-98.0); Mean Platelet Volume 10.6 fL (9.4-12.4); Platelet Count 309 X10*3/uL (160-400); Red Blood Count 4.02 X10*6/uL (4.60-5.80); Red Cell Distribution Width 16.8 % (11.0-16.0); White Blood Count 17.4 X10*3/uL (4.8-10.8)
[2023-03-23 07:36] LABS: Glucose, Whole Blood 260 mg/dL (60-115)
[2023-03-23 08:31] LABS: Anion Gap 12 (12-20); Blood Urea Nitrogen 16 mg/dL (9-16); Calcium 9.8 mg/dL (8.4-10.2); Carbon Dioxide 25 mmol/L (22-29); Chloride 105 mmol/L (96-108); Creatinine Clr Calc Pharmacy 54.4; Estimated Glomerular Filt Rate > 60; Glucose Random 227 mg/dL (60-115); Potassium 4.8 mmol/L (3.3-5.1); Sodium 137 mmol/L (135-145)
[2023-03-23] MEDS: Insulin Lispro 100 UNIT/ML 3 ML VIAL SUBCUT ×4 (08:31→22:53)
[2023-03-23] MEDS: Insulin Glargine,Hum.rec.anlog 100 UNIT/ML 10 ML VIAL 10 UNIT SUBCUT (08:32)
[2023-03-23] MEDS: Apixaban 2.5 MG TABLET PO ×2 (08:32→22:54)
[2023-03-23] MEDS: QUEtiapine Fumarate 25 MG TABLET 12.5 MG PO (08:32)
[2023-03-23] MEDS: Pravastatin Sodium 40 MG TABLET PO (08:32)
--- NOTE | 2023-03-23 11:13 | MHC.CM.PN ---
PER MD ROUNDS, PT WILL NOT BE READY TO DC TODAY CULTURES ARE STILL PENDING DCP STILL TBD PENDING PT EVAL PT NON-AMBULATORY AT BASELINE, HOWEVER DOES SELF TRANSFER IS HOPING PT CAN GO TO STR IF HE IS UNABLE TO TRANSFER INDEPENDENTLY WHEN MEDICALLY CLEARED REFERRAL MADE TO [facility] PER WIFES REQUEST HOWEVER THEY HAVE NOT YET RESPONDED [facility] WOULD ALSO HAVE TO AUTHORIZE STR
[2023-03-23 11:18] LABS: Glucose, Whole Blood 258 mg/dL (60-115)
[2023-03-23] MEDS: cefTRIAXone sodium 1 GM in 0.9 % Sodium Chloride 50 ML IV (14:19)
--- NOTE | 2023-03-23 15:43 | HO.PM.IMPN ---
Subjective Subjective Date of Service: 03/23/23 Interval History: seen and examined this morning follow up for UTI awake and alert, pleasantly confused reporting some pain in left ankle, asking for hearing aids and wheelchair Review of Systems Review of Systems: Yes all other systems are reviewed and are negative Constitutional Constitutional: Denies chills and Denies fever(s) Cardiovascular Cardiovascular: Denies chest pain, Denies palpitations and Denies dyspnea Respiratory Respiratory: Denies cough and Denies dyspnea Gastrointestinal Gastrointestinal: Denies abdominal pain Endocrine Endocrine: Denies palpitations Physical Exam Vital Signs: Vital Signs: Last Vital Signs Temp 99.6 F 03/23/23 15:31 Pulse 78 03/23/23 15:31 Resp 16 03/23/23 15:31 BP 128/60 03/23/23 15:31 Pulse Ox 95 03/23/23 15:31 O2 Del Method Nasal Cannula 03/23/23 15:31 O2 Flow Rate 2 03/23/23 15:31 BMI result Body Mass Index 31.9 Const: General: cooperative, comfortable, no acute distress, alert and awake Nutritional Appearance: overweight Resp: Effort & Inspection: normal respiratory effort, able to speak in complete sentences, no respiratory distress and no use of accessory muscles Auscultation: clear to auscultation bilaterally Cardio: Rate: regular rate Heart sounds: S1 normal heart sound present and S2 normal heart sound present GI: Inspection: No distended Palpation (GI): Soft to palpation and nontender Neuro: Other: grossly nonfocal General: moves all extremities Extrem: Other: left ankle with swelling, no erythema. mild tenderness to palpation over medial malleolus. no open wounds Objective Data Active Medications Acetaminophen (Acetaminophen 325 Mg Tablet) 650 mg PO Q6H PRN PRN Reason: Pain, Mild (Pain Scale 1-3) Apixaban (Apixaban 2.5 Mg Tablet) 2.5 mg PO BID RE Last Admin: 03/23/23 08:32 Dose: 2.5 mg Documented By: OREN Docusate Sodium (Docusate Sodium 100 Mg Capsule) 100 mg PO DAILY PRN PRN Reason: Constipation Glucose (Glucose Gel 15 Gm Gel..Gram.) 15 gm PO Q15M PRN; Protocol PRN Reason: per Hypoglycemia Standing Ord. Dextrose (D10) 250 mls @ 750 mls/hr IV Q15M PRN; Protocol PRN Reason: per Hypoglycemia Standing Ord. Ceftriaxone Sodium 1 gm/ (Sodium Chloride) 50 mls @ 100 mls/hr IV Q24H [facility] Last Infusion: 03/23/23 14:53 Dose: 0 mls/hr Documented By: OREN Insulin Glargine (Insulin Glargine,Hum.Rec.Anlog 100 Unit/Ml 10 Ml Vial) 10 unit SUBCUT BID [facility] Last Admin: 03/23/23 08:32 Dose: 10 unit Documented By: OREN Insulin Human Lispro (Insulin Lispro 100 Unit/Ml 3 Ml Vial) 0 unit SUBCUT QIDACHS [facility]; Protocol Last Admin: 03/23/23 11:47 Dose: 9 unit Documented By: OREN Ondansetron HCl (Ondansetron Hcl 4 Mg/2 Ml Vial) 4 mg IVPUSH Q8H PRN PRN Reason: Nausea and Vomiting Pharmacy Consult (Consult Rx Perform Med Rec) 1 each MISCELLANE ONCE PRN PRN Reason: Consult order Pravastatin Sodium (Pravastatin Sodium 40 Mg Tablet) 40 mg PO DAILY [facility] Last Admin: 03/23/23 08:32 Dose: 40 mg Documented By: OREN Quetiapine Fumarate (Quetiapine Fumarate 25 Mg Tablet) 12.5 mg PO DAILY [facility] Last Admin: 03/23/23 08:32 Dose: 12.5 mg Documented By: OREN Sodium Chloride (0.9 % Sodium Chloride Flush 3 Ml Syringe) 3 ml IVFLUSH QSHIFT [facility] Last Admin: 03/23/23 14:19 Dose: 3 ml Documented By: OREN Tiotropium [place] (Tiotropium [place] 2.5 Mcg Inhaler) 2 puff INHALE RDAILY [facility] Last Admin: 03/23/23 08:17 Dose: 2 puff Documented By: RED Labs 03/23/23 07:05 03/23/23 07:05 Labs: Laboratory Results - last 24 hr 03/22/23 03/22/23 03/23/23 18:11 19:28 07:05 MCV 90.5 MCH 27.6 MCHC 30.5 L RDW 16.8 H Plt Count 309 MPV 10.6 Absolute Nucleated RBC 0.000 Nucleated RBC % (auto) 0.0 Anion Gap Estim Creat Clear Calc Estimated GFR POC Glucose 430 H* 385 H* Random Glucose Calcium 03/23/23 03/23/23 03/23/23 07:05 07:25 11:13 MCV MCH MCHC RDW Plt Count MPV Absolute Nucleated RBC Nucleated RBC % (auto) Anion Gap 12 Estim Creat Clear Calc 54.4 Estimated GFR > 60 POC Glucose 260 H 258 H Random Glucose 227 H Calcium 9.8 Microbiology Microbiology Results: Microbiology 03/22/23 11:07 Blood Culture - Preliminary Blood - Venous No growth after 24 hours. 03/22/23 11:07 Blood Culture - Preliminary Blood - Venous No growth after 24 hours. 03/22/23 Unknown Urine Culture - Final Urine clean catch - Urine guerra top Strep agalactiae (Grp B) Assessment and Plan (1) Acute UTI: Status: Acute Plan This is an 87-year-old male with history of dementia, diabetes, COPD on as needed supplemental oxygen, history of DVT/PE on Eliquis who presents to the emergency department with increased urinary frequency and weakness found to have acute urinary tract infection Sepsis secondary to probable UTI Met criteria with tachycardia and leukocytosis. tachycardia resolved, leukocytosis beginning to trend down Urine culture growing group B strep Continue IV ceftriaxone, started 03/22 blood cultures negative x 24 hours Left ankle pain DVT study negative for clot h/o ankle fx with resulting septic arthritis and hardware removal - Xray negative for acute changes, no erythema on exam PT reporting difficulty weight bearing and pain on ambulation - will obtain CT with contrast to evaluate for infection Diabetes SSI, POCs, ADA diet continue long acting insulin at lower dose - will up titrate Lantus h/o PE/DVT continue Eliquis h/o COPD on prn home o2. o2 88 % on room air. CXR negative for definitive infection, no wheezing. no acute exacerbation at this time dementia continue seroquel HLD continue statin dvt ppx - Eliquis HCP- Code status-DNR/DNI. Discussed with attending - Dr. Triana requires ongoing inpatient stay due to sepsis secondary to UTI and need for IV antibiotics and evalution of left ankle pain Time Spent With Patient Time: Total time managing care of this patient today ____ minutes. Quality Stroke Does the patient have a stroke diagnosis?: No VTE Prior VTE?: No VTE Risk Level:: Medical - moderate - high VTE Device Contraindication: N/A - Device Ordered VTE Drug Contraindication: N/A - Med Ordered
[2023-03-23 15:57] LABS: Glucose, Whole Blood 195 mg/dL (60-115)
[2023-03-23] MEDS: iohexoL 350 MG/ML 100 ML INFUS..BTL IV (19:39)
[2023-03-23 20:14] LABS: Glucose, Whole Blood 278 mg/dL (60-115)
[2023-03-23] MEDS: Insulin Glargine,Hum.rec.anlog 100 UNIT/ML 10 ML VIAL 15 UNIT SUBCUT (22:54)
--- NOTE | 2023-03-23 23:14 | P.CNID_ITS ---
History of Present Illness Data of Consult Service Date: 03/23/23 Requesting physician: Darian Liu Primary Care Provider: Unknown Physician HPI Reason for consult: sepsis He presents to hospital with left ankle pain,inability to walk on it last night. He also had frequent urination,urinating every hour. He has no hematuria. He is feeling chilled. He had left ankle fracture 10/2020 and ORIF at [facility]. He had pain left ankle 02/2021 and temperature of 104 with hypotension requiring Levophed and went to OR for removal of hardware after culture showed Group B strep septic arthritis. He received two weeks IV Ceftriaxone although four weeks was ordered but patient didnt want to stay in facility and given po Keflex 500 mg tid to finish the course. 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 He had MSSA bacteremia in 03/2018 at [facility] and received six weeks IV Kefzol. He had splenectomy and paraspinal phlegmon/disciitis. [facility], [facility] Past Medical History Medical History COPD (chronic obstructive pulmonary disease) Dementia Diabetes Pulmonary embolism Family History Family History Other Diabetes Family history: reviewed and not pertinent Social History Social History Household Members: Spouse Housing: House Do you presently have visiting nurse or other home services: No Alcohol intake: never Patient Tobacco Use Status: Never used Tobacco Smoked in Last 30 Days: No Use of substances other than those prescribed or required for medical reasons: No Currently Displaying Signs/Symptoms of Drug Intoxication Withdrawal: No Have you been hit, kicked, punched, or otherwise hurt by someone within the past year? If so, by whom?: No Do you feel safe in your current relationship?: Yes Is there a partner from a previous relationship who is making you feel unsafe now?: No Are you made to feel afraid or neglected: No Yazdanism Healthcare Practices: Sikhism; [facility] [place] Advance Directives: No Advance Directives Information Provided: Yes Do you have thoughts of harming others: None Do you have a plan to hurt others: No Plan Recently lost weight without trying: No Nutrition Risks: No Nutritional Risk Poor oral hygiene: No service: Yes Current occupational status: retired Meds Allergies Allergy/AdvReac Type Severity Reaction Status Date / Time codeine [Codeine] Allergy Unknown UNKNOWN Unverified 01/27/23 09:30 tetanus toxoid, adsorbed Allergy Unknown UNKNOWN Unverified 01/27/23 09:30 [Tetanus Toxoid,Adsorbed] Active Medications: Current Medications Acetaminophen (Acetaminophen 325 Mg Tablet) 650 mg PO Q6H PRN PRN Reason: Pain, Mild (Pain Scale 1-3) Apixaban (Apixaban 2.5 Mg Tablet) 2.5 mg PO BID [facility] Last Admin: 03/23/23 22:54 Dose: 2.5 mg Docusate Sodium (Docusate Sodium 100 Mg Capsule) 100 mg PO DAILY PRN PRN Reason: Constipation Glucose (Glucose Gel 15 Gm Gel..Gram.) 15 gm PO Q15M PRN; Protocol PRN Reason: per Hypoglycemia Standing Ord. Dextrose (D10) 250 mls @ 750 mls/hr IV Q15M PRN; Protocol PRN Reason: per Hypoglycemia Standing Ord. Ceftriaxone Sodium 1 gm/ (Sodium Chloride) 50 mls @ 100 mls/hr IV Q24H [facility] Last Infusion: 03/23/23 14:53 Dose: Infused Insulin Glargine (Insulin Glargine,Hum.Rec.Anlog 100 Unit/Ml 10 Ml Vial) 10 unit SUBCUT DAILY [facility] Insulin Glargine (Insulin Glargine,Hum.Rec.Anlog 100 Unit/Ml 10 Ml Vial) 15 unit SUBCUT BEDTIME [facility] Last Admin: 03/23/23 22:54 Dose: 15 unit Insulin Human Lispro (Insulin Lispro 100 Unit/Ml 3 Ml Vial) 0 unit SUBCUT QID ACHS [facility]; Protocol Last Admin: 03/23/23 22:53 Dose: 9 unit Ondansetron HCl (Ondansetron Hcl 4 Mg/2 Ml Vial) 4 mg IVPUSH Q8H PRN PRN Reason: Nausea and Vomiting Pharmacy Consult (Consult Rx Perform Med Rec) 1 each MISCELLANE ONCE PRN PRN Reason: Consult order Pravastatin Sodium (Pravastatin Sodium 40 Mg Tablet) 40 mg PO DAILY [facility] Last Admin: 03/23/23 08:32 Dose: 40 mg Quetiapine Fumarate (Quetiapine Fumarate 25 Mg Tablet) 12.5 mg PO DAILY [facility] Last Admin: 03/23/23 08:32 Dose: 12.5 mg Sodium Chloride (0.9 % Sodium Chloride Flush 3 Ml Syringe) 3 ml IVFLUSH QSHIFT [facility] Last Admin: 03/23/23 14:19 Dose: 3 ml Tiotropium [place] (Tiotropium [place] 2.5 Mcg Inhaler) 2 puff INHALE RDAILY [facility] Last Admin: 03/23/23 08:17 Dose: 2 puff Home Medications Medication Instructions Recorded Confirmed Last Taken Type apixaban 5 mg tablet 2.5 mg PO BID 01/27/23 03/22/23 Unknown History flash glucose sensor (FreeStyle #1 ea 01/27/23 Unknown History Reva 14 Day Sensor kit) furosemide 40 mg tablet 40 mg PO DAILY 01/27/23 03/22/23 Unknown History glucose 4 gram chewable tablet 4 g PO Q15M PRN Hypoglycemia 01/27/23 03/22/23 Unknown History (Dex4 Glucose) insulin aspart U-100 100 unit/mL 22 unit subcut DAILY@1700 01/27/23 03/22/23 Unknown History (3 mL) subcutaneous pen (Novolog FlexPen U-100 Insulin aspart) insulin glargine 100 unit/mL 15 unit subcut DAILY 01/27/23 03/22/23 Unknown History subcutaneous solution pravastatin 40 mg tablet 40 mg PO DAILY 01/27/23 03/22/23 Unknown History quetiapine 25 mg tablet 12.5 mg PO DAILY 01/27/23 03/22/23 Unknown History insulin aspart U-100 100 unit/mL 6 unit subcut DAILY@1300 03/22/23 03/22/23 Unknown History (3 mL) subcutaneous pen (Novolog FlexPen U-100 Insulin aspart) insulin aspart U-100 100 unit/mL 18 unit subcut DAILY@0900 03/22/23 03/22/23 Unknown History (3 mL) subcutaneous pen (Novolog FlexPen U-100 Insulin aspart) insulin glargine 100 unit/mL 22 unit subcut BEDTIME 03/22/23 03/22/23 Unknown History subcutaneous solution (Lantus U-100 Insulin) multivitamin 1 tab PO DAILY 03/22/23 03/22/23 Unknown History omega-3 fatty acids-fish oil 360 2 cap PO DAILY 03/22/23 03/22/23 Unknown History mg-1,200 mg capsule (Fish Oil) tiotropium bromide 2.5 2 puff inhalation DAILY 03/22/23 03/22/23 Unknown History mcg/actuation mist for inhalation (Spiriva Respimat) Physical Exam Vital Signs: Vital Signs: Last Vital Signs Temp 99.5 F 03/23/23 22:58 Pulse 86 03/23/23 22:58 Resp 20 03/23/23 22:58 BP 113/51 L 03/23/23 22:58 Pulse Ox 93 03/23/23 22:58 O2 Del Method Nasal Cannula 03/23/23 22:58 O2 Flow Rate 3 03/23/23 22:58 BMI result Body Mass Index 31.9 Extrem: Other: no redness to ankle,pain on inversion Psych: Other: some confusion Results Labs 03/23/23 07:05 03/23/23 07:05 Labs: Short CBC 03/23/23 Range/Units 07:05 WBC 17.4 H (4.8-10.8) X10*3/uL Hgb 11.1 L (14.0-18.0) g/dl Hct 36.4 L (42.0-52.0) % Plt Count 309 (160-400) X10*3/uL BMP 03/23/23 07:05 Sodium 137 Potassium 4.8 Chloride 105 Carbon Dioxide 25 BUN 16 Creatinine 1.09 Calcium 9.8 Microbiology Microbiology Results: Microbiology 03/22/23 11:07 Blood - Venous Blood Culture - Preliminary No growth after 24 hours. 03/22/23 11:07 Blood - Venous Blood Culture - Preliminary No growth after 24 hours. 03/22/23 Unknown Urine clean catch - Urine guerra top Urine Culture - Final Strep agalactiae (Grp B) Assessment and Plan (1) Sepsis: Status: Acute He has probable urinary sepsis. Possibly he has gout or less likely infection in joint left ankle as well. (2) Acute UTI: Status: Acute Plan Continue Ceftriaxone. Await blood cultures and urine cultures. Duration of antibiotics to be determined. If ankle pain continues and/or gets red would get aspirate from Orthopedics or IR. Time Spent With Patient Time: Total time managing care of this patient today ____ minutes.
[2023-03-24 03:09] VITALS: BP 155/68; PULSE 77; RESP 20; TEMP 36.7; O2SAT 95
[2023-03-24 07:34] VITALS: BP 151/66; PULSE 76; RESP 16; TEMP 36.8; O2SAT 95
[2023-03-24 07:43] LABS: Glucose, Whole Blood 242 mg/dL (60-115)
[2023-03-24 07:47] VITALS: PULSE 88; RESP 18; O2SAT 92
[2023-03-24 08:24] LABS: Hematocrit 38.4 % (42.0-52.0); Hemoglobin 11.4 g/dl (14.0-18.0); Mean Corpuscular HGB Conc 29.7 g/dl (31.0-36.0); Mean Corpuscular Hemoglobin 29.1 pg (27.0-33.0); Mean Platelet Volume 10.7 fL (9.4-12.4); Platelet Count 275 X10*3/uL (160-400); Red Blood Count 3.92 X10*6/uL (4.60-5.80); Red Cell Distribution Width 17.1 % (11.0-16.0); White Blood Count 16.9 X10*3/uL (4.8-10.8)
[2023-03-24] MEDS: Insulin Lispro 100 UNIT/ML 3 ML VIAL SUBCUT ×4 (08:25→21:05)
[2023-03-24] MEDS: Insulin Glargine,Hum.rec.anlog 100 UNIT/ML 10 ML VIAL 10 UNIT SUBCUT (08:25)
[2023-03-24] MEDS: Apixaban 2.5 MG TABLET PO ×2 (08:26→21:05)
[2023-03-24] MEDS: QUEtiapine Fumarate 25 MG TABLET 12.5 MG PO (08:26)
[2023-03-24] MEDS: Pravastatin Sodium 40 MG TABLET PO (08:26)
[2023-03-24] MEDS: 0.9 % Sodium Chloride Flush 3 ML SYRINGE IVFLUSH ×3 (08:27→21:06)
[2023-03-24 11:00] LABS: Glucose, Whole Blood 344 mg/dL (60-115)
[2023-03-24 11:16] VITALS: BP 154/70; PULSE 72; RESP 16; TEMP 36.3; O2SAT 97
--- NOTE | 2023-03-24 12:03 | MHC.CM.PN ---
PA requesting referrals be sent to VNAs; adamant on taking him home (PT recommends SNF, however has had multiple poor experiences in the past w/SNFs and his dementia, that she will not agree to a SNF D/C). Pt has [facility] and [place] insurance; broadcasted referrals to all available VNAs in [facility] w/request for responses RE: 1) if can accept (2) if contracted w/his insurance(s) (3) earliest can give PT in his home as this is main required service. Pending responses. CM to follow.
--- NOTE | 2023-03-24 12:18 | P.CONOP_ITS ---
History of Present Illness HPI Consult date: 03/24/23 Chief complaint: UTI Narrative: 87-year-old male with history of dementia, diabetes, COPD on PRN O2, hx DVT/PE on Eliquis, recent fall with rib fractures in January, history of left ankle fracture s/p surgery complicated by infection requiring hardware removal in 2020, presented to the ER from home for evaluation of left ankle pain and generalized weakness, unable to walk on 03/22/23. Due to patients history of dementia I was unable to gather a history from the patient. however, the patient's is present at bedside for interview. She reports that the patient began to have left ankle pain on the evening of 03/21/23. The patient is mainly wheelchair bound but uses a walker occasionally. He began to complain of left ankle pain and would not bear weight on the left side. The patient was brought to the ED on 03/22/23 and admitted for sepsis, acute UTI and left ankle pain. Orthopedics was consulted for further evaluation and treatment of the left ankle. Review of Systems Review of Systems: Yes Unobtainable due to mental status PMFSH Past Medical History Medical History COPD (chronic obstructive pulmonary disease) Dementia Diabetes Pulmonary embolism Family History Family History Other Diabetes Family history: reviewed and not pertinent Social History Social History Household Members: Spouse Housing: House Do you presently have visiting nurse or other home services: No Alcohol intake: never Patient Tobacco Use Status: Never used Tobacco Smoked in Last 30 Days: No Use of substances other than those prescribed or required for medical reasons: No Currently Displaying Signs/Symptoms of Drug Intoxication Withdrawal: No Have you been hit, kicked, punched, or otherwise hurt by someone within the past year? If so, by whom?: No Do you feel safe in your current relationship?: Yes Is there a partner from a previous relationship who is making you feel unsafe now?: No Are you made to feel afraid or neglected: No Restorationism Healthcare Practices: Muslim; [facility] Advance Directives: No Advance Directives Information Provided: Yes Do you have thoughts of harming others: None Do you have a plan to hurt others: No Plan Recently lost weight without trying: No Nutrition Risks: No Nutritional Risk Poor oral hygiene: No service: Yes Current occupational status: retired Meds Allergies Allergy/AdvReac Type Severity Reaction Status Date / Time codeine [Codeine] Allergy Unknown UNKNOWN Unverified 01/27/23 09:30 tetanus toxoid, adsorbed Allergy Unknown UNKNOWN Unverified 01/27/23 09:30 [Tetanus Toxoid,Adsorbed] Active Medications: Current Medications Acetaminophen (Acetaminophen 325 Mg Tablet) 650 mg PO Q6H PRN PRN Reason: Pain, Mild (Pain Scale 1-3) Apixaban (Apixaban 2.5 Mg Tablet) 2.5 mg PO BID [facility] Last Admin: 03/24/23 08:26 Dose: 2.5 mg Docusate Sodium (Docusate Sodium 100 Mg Capsule) 100 mg PO DAILY PRN PRN Reason: Constipation Glucose (Glucose Gel 15 Gm Gel..Gram.) 15 gm PO Q15M PRN; Protocol PRN Reason: per Hypoglycemia Standing Ord. Dextrose (D10) 250 mls @ 750 mls/hr IV Q15M PRN; Protocol PRN Reason: per Hypoglycemia Standing Ord. Ceftriaxone Sodium 1 gm/ (Sodium Chloride) 50 mls @ 100 mls/hr IV Q24H [facility] Last Infusion: 03/23/23 14:53 Dose: Infused Insulin Glargine (Insulin Glargine,Hum.Rec.Anlog 100 Unit/Ml 10 Ml Vial) 10 unit SUBCUT DAILY [facility] Last Admin: 03/24/23 08:25 Dose: 10 unit Insulin Glargine (Insulin Glargine,Hum.Rec.Anlog 100 Unit/Ml 10 Ml Vial) 15 unit SUBCUT BEDTIME [facility] Last Admin: 03/23/23 22:54 Dose: 15 unit Insulin Human Lispro (Insulin Lispro 100 Unit/Ml 3 Ml Vial) 0 unit SUBCUT QIDACHS [facility]; Protocol Last Admin: 03/24/23 11:41 Dose: 12 unit Ondansetron HCl (Ondansetron Hcl 4 Mg/2 Ml Vial) 4 mg IVPUSH Q8H PRN PRN Reason: Nausea and Vomiting Pharmacy Consult (Consult Rx Perform Med Rec) 1 each MISCELLANE ONCE PRN PRN Reason: Consult order Pravastatin Sodium (Pravastatin Sodium 40 Mg Tablet) 40 mg PO DAILY [facility] Last Admin: 03/24/23 08:26 Dose: 40 mg Quetiapine Fumarate (Quetiapine Fumarate 25 Mg Tablet) 12.5 mg PO DAILY [facility] Last Admin: 03/24/23 08:26 Dose: 12.5 mg Sodium Chloride (0.9 % Sodium Chloride Flush 3 Ml Syringe) 3 ml IVFLUSH QSHIFT [facility] Last Admin: 03/24/23 08:27 Dose: 3 ml Tiotropium [place] (Tiotropium [place] 2.5 Mcg Inhaler) 2 puff INHALE RDAILY [facility] Last Admin: 03/24/23 07:46 Dose: 2 puff Home Medications Medication Instructions Recorded Confirmed Last Taken Type apixaban 5 mg tablet 2.5 mg PO BID 01/27/23 03/22/23 Unknown History flash glucose sensor (FreeStyle #1 ea 01/27/23 Unknown History Reva 14 Day Sensor kit) furosemide 40 mg tablet 40 mg PO DAILY 01/27/23 03/22/23 Unknown History glucose 4 gram chewable tablet 4 g PO Q15M PRN Hypoglycemia 01/27/23 03/22/23 Unknown History (Dex4 Glucose) insulin aspart U-100 100 unit/mL 22 unit subcut DAILY@1700 01/27/23 03/22/23 Unknown History (3 mL) subcutaneous pen (Novolog FlexPen U-100 Insulin aspart) insulin glargine 100 unit/mL 15 unit subcut DAILY 01/27/23 03/22/23 Unknown History subcutaneous solution pravastatin 40 mg tablet 40 mg PO DAILY 01/27/23 03/22/23 Unknown History quetiapine 25 mg tablet 12.5 mg PO DAILY 01/27/23 03/22/23 Unknown History insulin aspart U-100 100 unit/mL 6 unit subcut DAILY@1300 03/22/23 03/22/23 U nknown History (3 mL) subcutaneous pen (Novolog FlexPen U-100 Insulin aspart) insulin aspart U-100 100 unit/mL 18 unit subcut DAILY@0900 03/22/23 03/22/23 Unknown History (3 mL) subcutaneous pen (Novolog FlexPen U-100 Insulin aspart) insulin glargine 100 unit/mL 22 unit subcut BEDTIME 03/22/23 03/22/23 Unknown History subcutaneous solution (Lantus U-100 Insulin) multivitamin 1 tab PO DAILY 03/22/23 03/22/23 Unknown History omega-3 fatty acids-fish oil 360 2 cap PO DAILY 03/22/23 03/22/23 Unknown History mg-1,200 mg capsule (Fish Oil) tiotropium bromide 2.5 2 puff inhalation DAILY 03/22/23 03/22/23 Unknown History mcg/actuation mist for inhalation (Spiriva Respimat) Physical Exam Vital Signs: Vital Signs: Last Vital Signs Temp 97.3 F 03/24/23 11:16 Pulse 72 03/24/23 11:16 Resp 16 03/24/23 11:16 BP 154/70 H 03/24/23 11:16 Pulse Ox 97 03/24/23 11:16 O2 Del Method Nasal Cannula 03/24/23 11:16 O2 Flow Rate 3 03/24/23 11:16 BMI result Body Mass Index 31.9 Const: General: cooperative, healthy appearing and no acute distress Resp: Effort & Inspection: normal respiratory effort and able to speak in complete sentences Cardio: Rate: regular rate Peripheral pulses: Peripheral pulses 2+ throughout GI: Palpation (GI): Soft to palpation Skin: Lesions: no lesions Rashes: no rashes Extrem: Other: Left ankle lateral maleollar surgical scar noted. No erythema. Mild effusion. No tenderness to palpation of the medial or lateral malleolus. Able to passively dorsi/plantar flex without pain. Results Labs 03/24/23 08:17 03/23/23 07:05 Labs: Abnormal lab results 03/23/23 03/23/23 03/24/23 Range/Units 15:34 20:09 07:39 WBC (4.8-10.8) X10*3/uL RBC (4.60-5.80) X10*6/uL Hgb (14.0-18.0) g/dl Hct (42.0-52.0) % MCHC (31.0-36.0) g/dl RDW (11.0-16.0) % POC Glucose 195 H 278 H 242 H (60-115) mg/dL 03/24/23 03/24/23 Range/Units 08:17 10:48 WBC 16.9 H (4.8-10.8) X10*3/uL RBC 3.92 L (4.60-5.80) X10*6/uL Hgb 11.4 L (14.0-18.0) g/dl Hct 38.4 L (42.0-52.0) % MCHC 29.7 L (31.0-36.0) g/dl RDW 17.1 H (11.0-16.0) % POC Glucose 344 H (60-115) mg/dL H & H 03/22/23 03/23/23 03/24/23 Range/Units 08:30 07:05 08:17 Hgb 12.4 L 11.1 L 11.4 L (14.0-18.0) g/dl Hct 38.8 L 36.4 L 38.4 L (42.0-52.0) % All other labs normal. Assessment and Plan (1) Sepsis: Status: Acute (2) Acute UTI: Status: Acute (3) Left ankle pain: Status: Acute Left ankle x-rays reviewed and reveal: Nonacute appearing deformity of the medial malleolus and distal fibula suggesting old healed fractures. Mild to moderate soft tissue swelling. No overt acute fracture. Mild tibiotalar osteoarthritis. Left ankle CT reveals: Postsurgical changes with evidence of previous hardware placement as described. No evidence of osteomyelitis. No effusion. Bimalleolar subcutaneous edema without a localized or peripherally enhancing collection to indicate an abscess. No evidence of septic joint. No additional orthopedic intervention needed at this time. Time Spent With Patient Time: Total time managing care of this patient today ____ minutes. Procedures Date of Service Date of Service: 03/24/23
--- NOTE | 2023-03-24 12:58 | MHC.CM.PN ---
So far no accepting in-network [facility] VNAs have offered/been identified. Received a call from [facility]; they are happy to accept him for nursing and PT pending VA authorization. Met w/PA, Pt and family in room; confirmed family will not agree to a SNF D/C and that home w/services is the goal. Confirmed that Pt saw Dr. Meme Braxton (his [facility] PCP) 2 weeks ago for his 6 month check up, and that all medications are distributed through the [facility]. Notified PA, Pt and family that no in-network/[facility] accepting VNAs have been identified as of yet, however that [facility] has accepted for nursing and PT; nursing to start the day following D/C and PT to begin either Tuesday 03/27 or 03/28 if VA will authorize start of service (per [facility] rep via phone). Everyone in agreement with this plan should authorization be approved w/VA. CM to follow.
--- NOTE | 2023-03-24 13:10 | MHC.CM.PN ---
Received call from [facility] nurse who indicates she is in office today and reviewed referral; this RNCM notified that [facility] is not contracted w/[facility]. This CM inquired RE ? [facility] coverage; [facility] nurse informed this CM that [facility] is not taking [facility] at this time. CM to follow.
--- NOTE | 2023-03-24 13:22 | MHC.CM.PN ---
(and PA) indicate Pt was ambulatory right up to this hospital admission. Equipment at home per : walker, handrails, BSC. CM to follow.
[2023-03-24] MEDS: cefTRIAXone sodium 1 GM in 0.9 % Sodium Chloride 50 ML IV (14:06)
--- NOTE | 2023-03-24 14:24 | P.PNIM_ITS ---
Subjective Subjective Date of Service: 03/24/23 Interval History: seen and examined this morning follow up for UTI, left ankle pain No overnight events awake, alert, pleasantly confused No specific complaints today Review of Systems Review of Systems: Yes all other systems are reviewed and are negative Constitutional Constitutional: Denies chills and Denies fever(s) Cardiovascular Cardiovascular: Denies chest pain Gastrointestinal Gastrointestinal: Denies abdominal pain Physical Exam Vital Signs: Vital Signs: Last Vital Signs Temp 97.3 F 03/24/23 11:16 Pulse 72 03/24/23 11:16 Resp 16 03/24/23 11:16 BP 154/70 H 03/24/23 11:16 Pulse Ox 97 03/24/23 11:16 O2 Del Method Nasal Cannula 03/24/23 11:16 O2 Flow Rate 3 03/24/23 11:16 BMI result Body Mass Index 31.9 Const: Other: pleasantly confused General: cooperative, comfortable, no acute distress, alert and awake Nutritional Appearance: overweight Resp: Effort & Inspection: normal respiratory effort, able to speak in complete sentences, no respiratory distress and no use of accessory muscles Auscultation: clear to auscultation bilaterally Cardio: Rate: regular rate Heart sounds: S1 normal heart sound present and S2 normal heart sound present GI: Inspection: No distended Palpation (GI): Soft to palpation and nontender Neuro: Other: grossly nonfocal General: moves all extremities Extrem: Other: left ankle with swelling, no erythema. mild tenderness to palpation over lateral malleolus. no open wounds Objective Data Active Medications Acetaminophen (Acetaminophen 325 Mg Tablet) 650 mg PO Q6H PRN PRN Reason: Pain, Mild (Pain Scale 1-3) Apixaban (Apixaban 2.5 Mg Tablet) 2.5 mg PO BID RE Last Admin: 03/24/23 08:26 Dose: 2.5 mg Documented By: KENNEDY Docusate Sodium (Docusate Sodium 100 Mg Capsule) 100 mg PO DAILY PRN PRN Reason: Constipation Glucose (Glucose Gel 15 Gm Gel..Gram.) 15 gm PO Q15M PRN; Protocol PRN Reason: per Hypoglycemia Standing Ord. Dextrose (D10) 250 mls @ 750 mls/hr IV Q15M PRN; Protocol PRN Reason: per Hypoglycemia Standing Ord. Ceftriaxone Sodium 1 gm/ (Sodium Chloride) 50 mls @ 100 mls/hr IV Q24H [facility] Last Admin: 03/24/23 14:06 Dose: 100 mls/hr Documented By: KENNEDY Insulin Glargine (Insulin Glargine,Hum.Rec.Anlog 100 Unit/Ml 10 Ml Vial) 10 un it SUBCUT DAILY [facility] Last Admin: 03/24/23 08:25 Dose: 10 unit Documented By: KENNEDY Insulin Glargine (Insulin Glargine,Hum.Rec.Anlog 100 Unit/Ml 10 Ml Vial) 15 unit SUBCUT BEDTIME [facility] Last Admin: 03/23/23 22:54 Dose: 15 unit Documented By: PONCHO Insulin Human Lispro (Insulin Lispro 100 Unit/Ml 3 Ml Vial) 0 unit SUBCUT QIDACHS [facility]; Protocol Last Admin: 03/24/23 11:41 Dose: 12 unit Documented By: KENNEDY Ondansetron HCl (Ondansetron Hcl 4 Mg/2 Ml Vial) 4 mg IVPUSH Q8H PRN PRN Reason: Nausea and Vomiting Pharmacy Consult (Consult Rx Perform Med Rec) 1 each MISCELLANE ONCE PRN PRN Reason: Consult order Pravastatin Sodium (Pravastatin Sodium 40 Mg Tablet) 40 mg PO DAILY [facility] Last Admin: 03/24/23 08:26 Dose: 40 mg Documented By: KENNEDY Quetiapine Fumarate (Quetiapine Fumarate 25 Mg Tablet) 12.5 mg PO DAILY [facility] Last Admin: 03/24/23 08:26 Dose: 12.5 mg Documented By: KENNEDY Sodium Chloride (0.9 % Sodium Chloride Flush 3 Ml Syringe) 3 ml IVFLUSH QSHIFT [facility] Last Admin: 03/24/23 08:27 Dose: 3 ml Documented By: KENNEDY Tiotropium [place] (Tiotropium [place] 2.5 Mcg Inhaler) 2 puff INHALE RDAILY [facility] Last Admin: 03/24/23 07:46 Dose: 2 puff Documented By: YAZANSCL Labs 03/24/23 08:17 03/23/23 07:05 Labs: Laboratory Results - last 24 hr 03/23/23 03/23/23 03/24/23 15:34 20:09 07:39 MCV MCH MCHC RDW Plt Count MPV Absolute Nucleated RBC Nucleated RBC % (auto) POC Glucose 195 H 278 H 242 H 03/24/23 03/24/23 08:17 10:48 MCV 98.0 D MCH 29.1 MCHC 29.7 L RDW 17.1 H Plt Count 275 MPV 10.7 Absolute Nucleated RBC 0.000 Nucleated RBC % (auto) 0.0 POC Glucose 344 H Microbiology Microbiology Results: Microbiology 03/22/23 11:07 Blood Culture - Preliminary Blood - Venous No growth after 48 hours. 03/22/23 11:07 Blood Culture - Preliminary Blood - Venous No growth after 48 hours. Assessment and Plan (1) Left ankle pain: Status: Acute (2) Sepsis: Status: Acute (3) Acute UTI: Status: Acute Plan This is an 87-year-old male with history of dementia, diabetes, COPD on as needed supplemental oxygen, history of DVT/PE on Eliquis who presents to the emergency department with increased urinary frequency and weakness found to have acute urinary tract infection Sepsis secondary to probable UTI Met criteria with tachycardia and leukocytosis. tachycardia resolved, leukocytosis beginning to trend down Urine culture growing group B strep Continue IV ceftriaxone, started 03/22 - transition to po amox or keflex on d/c blood cultures negative x 24 hours Left ankle pain DVT study negative for clot h/o ankle fx with resulting septic arthritis and hardware removal - Xray negative for acute changes, no erythema on exam CT with contrast with swelling but negative for effusion, septic arthritis, abs cess seen by ortho - noacute infection, no further work up necessary less likely gout given no erythema PT reporting difficulty weight bearing and pain on ambulation Diabetes SSI, POCs, ADA diet continue long acting insulin at lower dose - will up titrate Lantus h/o PE/DVT continue Eliquis h/o COPD/chronic respiratory failure on prn home o2. o2 88 % on room air. CXR negative for definitive infection, no wheezing. no respiratory symptoms no acute exacerbation at this time dementia continue seroquel HLD continue statin dvt ppx - Eliquis HCP- Code status-DNR/DNI. Discussed with attending - Dr. Triana dispo - patient unable to ambulate, PT recommends STR. Long discussion with pt, daughter and case management at bedside. Family does not want patient to go to rehab due to multiple unpleasant visits in the past due to patient's underlying dementia. unable to care for him at this time due to his inability to ambulate/transfer. ankle pain seems to be improving, plan for repeat PT eval on Sunday requires ongoing inpatient stay due to sepsis secondary to UTI and need for IV antibiotics and safe disposition Time Spent With Patient Time: Total time managing care of this patient today ____ minutes. Quality Stroke Does the patient have a stroke diagnosis?: No VTE Prior VTE?: No VTE Risk Level:: Medical - moderate - high VTE Device Contraindication: N/A - Device Ordered VTE Drug Contraindication: N/A - Med Ordered
[2023-03-24 16:00] VITALS: BP 156/78; PULSE 89; RESP 18; TEMP 37; O2SAT 97
--- NOTE | 2023-03-24 16:19 | MHC.CM.PN ---
Met w/Pt and ; per their request, gave and reviewed Private Duty and Senior Resource List to/with them. verbalized understanding. CM to follow.
[2023-03-24 16:23] LABS: Glucose, Whole Blood 169 mg/dL (60-115)
[2023-03-24 20:00] VITALS: BP 156/74; PULSE 72; RESP 18; TEMP 37; O2SAT 93
[2023-03-24 20:45] LABS: Glucose, Whole Blood 256 mg/dL (60-115)
[2023-03-24] MEDS: Insulin Glargine,Hum.rec.anlog 100 UNIT/ML 10 ML VIAL 20 UNIT SUBCUT (21:06)
[2023-03-25] VITALS (8 sets, daily range): BP systolic 128–172; BP diastolic 62–89; PULSE 70–89; RESP 16–18; TEMP 36.3–37; O2SAT 91–98
[2023-03-25] MEDS: Acetaminophen 325 MG TABLET 650 MG PO (02:13)
[2023-03-25 07:21] LABS: Glucose, Whole Blood 173 mg/dL (60-115)
[2023-03-25] MEDS: QUEtiapine Fumarate 25 MG TABLET 12.5 MG PO (08:49)
[2023-03-25] MEDS: Apixaban 2.5 MG TABLET PO ×2 (08:49→22:35)
[2023-03-25] MEDS: Pravastatin Sodium 40 MG TABLET PO (08:49)
[2023-03-25] MEDS: 0.9 % Sodium Chloride Flush 3 ML SYRINGE IVFLUSH ×3 (08:50→22:40)
[2023-03-25] MEDS: Insulin Lispro 100 UNIT/ML 3 ML VIAL SUBCUT ×4 (08:50→22:37)
[2023-03-25] MEDS: Insulin Glargine,Hum.rec.anlog 100 UNIT/ML 10 ML VIAL 10 UNIT SUBCUT (08:50)
--- NOTE | 2023-03-25 10:20 | P.PNIM_ITS ---
Subjective Subjective Date of Service: 03/25/23 Interval History: seen and examined this morning follow up for UTI, left ankle pain left ankle pain seems to be improving no overnight events no specific complaints Review of Systems Review of Systems: Yes all other systems are reviewed and are negative Constitutional Constitutional: Denies chills and Denies fever(s) Cardiovascular Cardiovascular: Denies chest pain, Denies palpitations and Denies dyspnea Respiratory Respiratory: Denies cough and Denies dyspnea Gastrointestinal Gastrointestinal: Denies abdominal pain Endocrine Endocrine: Denies palpitations Physical Exam Vital Signs: Vital Signs: Last Vital Signs Temp 97.6 F 03/25/23 07:20 Pulse 86 03/25/23 07:49 Resp 18 03/25/23 07:49 BP 143/77 H 03/25/23 07:20 Pulse Ox 91 L 03/25/23 07:20 O2 Del Method Nasal Cannula 03/25/23 07:20 O2 Flow Rate 3 03/25/23 07:20 BMI result Body Mass Index 31.9 Const: Other: pleasantly confused General: cooperative, comfortable, no acute distress, alert and awake Nutritional Appearance: overweight Orientation/consciousness: oriented to person Resp: Effort & Inspection: normal respiratory effort, able to speak in complete sentences, no respiratory distress and no use of accessory muscles Auscultation: clear to auscultation bilaterally Cardio: Rate: regular rate Heart sounds: S1 normal heart sound present and S2 normal heart sound present GI: Inspection: No distended Palpation (GI): Soft to palpation and non tender Neuro: Other: grossly nonfocal General: oriented to person and moves all extremities Extrem: Other: left ankle with swelling which is improving, no erythema. less tenderness to palpation over lateral malleolus. no open wounds Objective Data Active Medications Acetaminophen (Acetaminophen 325 Mg Tablet) 650 mg PO Q6H PRN PRN Reason: Pain, Mild (Pain Scale 1-3) Last Admin: 03/25/23 02:13 Dose: 650 mg Documented By: SILAS Apixaban (Apixaban 2.5 Mg Tablet) 2.5 mg PO BID RE Last Admin: 03/25/23 08:49 Dose: 2.5 mg Documented By: ZEYNEP Docusate Sodium (Docusate Sodium 100 Mg Capsule) 100 mg PO DAILY PRN PRN Reason: Constipation Glucose (Glucose Gel 15 Gm Gel..Gram.) 15 gm PO Q15M PRN; Protocol PRN Reason: per Hypoglycemia Standing Ord. Dextrose (D10) 250 mls @ 750 mls/hr IV Q15M PRN; Protocol PRN Reason: per Hypoglycemia Standing Ord. Ceftriaxone Sodium 1 gm/ (Sodium Chloride) 50 mls @ 100 mls/hr IV Q24H [facility] Last Infusion: 03/24/23 14:46 Dose: 0 mls/hr Documented By: KENNEDY Insulin Glargine (Insulin Glargine,Hum.Rec.Anlog 100 Unit/Ml 10 Ml Vial) 10 unit SUBCUT DAILY [facility] Last Admin: 03/25/23 08:50 Dose: 10 unit Documented By: ZEYNEP Insulin Glargine (Insulin Glargine,Hum.Rec.Anlog 100 Unit/Ml 10 Ml Vial) 20 uni t SUBCUT BEDTIME [facility] Last Admin: 03/24/23 21:06 Dose: 20 unit Documented By: SILAS Insulin Human Lispro (Insulin Lispro 100 Unit/Ml 3 Ml Vial) 0 unit SUBCUT QIDACHS [facility]; Protocol Last Admin: 03/25/23 08:50 Dose: 4 unit Documented By: ZEYNEP Ondansetron HCl (Ondansetron Hcl 4 Mg/2 Ml Vial) 4 mg IVPUSH Q8H PRN PRN Reason: Nausea and Vomiting Pharmacy Consult (Consult Rx Perform Med Rec) 1 each MISCELLANE ONCE PRN PRN Reason: Consult order Pravastatin Sodium (Pravastatin Sodium 40 Mg Tablet) 40 mg PO DAILY [facility] Last Admin: 03/25/23 08:49 Dose: 40 mg Documented By: ZEYNEP Quetiapine Fumarate (Quetiapine Fumarate 25 Mg Tablet) 12.5 mg PO DAILY [facility] Last Admin: 03/25/23 08:49 Dose: 12.5 mg Documented By: ZEYNEP Sodium Chloride (0.9 % Sodium Chloride Flush 3 Ml Syringe) 3 ml IVFLUSH QSHIFT [facility] Last Admin: 03/25/23 08:50 Dose: 3 ml Documented By: ZEYNEP Tiotropium [place] (Tiotropium [place] 2.5 Mcg Inhaler) 2 puff INHALE RDAILY [facility] Last Admin: 03/25/23 07:48 Dose: 2 puff Documented By: MARCOS Labs 03/24/23 08:17 03/23/23 07:05 Labs: Laboratory Results - last 24 hr 03/24/23 03/24/23 03/24/23 10:48 16:20 20:26 POC Glucose 344 H 169 H 256 H 03/25/23 07:18 POC Glucose 173 H Microbiology Microbiology Results: Microbiology 03/22/23 11:07 Blood Culture - Preliminary Blood - Venous No growth after 48 hours. 03/22/23 11:07 Blood Culture - Preliminary Blood - Venous No growth after 48 hours. Assessment and Plan (1) Left ankle pain: Status: Acute (2) Acute UTI: Status: Acute Plan This is an 87-year-old male with history of dementia, diabetes, COPD on as needed supplemental oxygen, history of DVT/PE on Eliquis who presents to the emergency department with increased urinary frequency and weakness found to have acute urinary tract infection Sepsis secondary UTI Met criteria with tachycardia and leukocytosis. 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 o2 88 % on room air. CXR negative for definitive infection, no wheezing. no respiratory symptoms no acute exacerbation at this time dementia continue seroquel HLD continue statin dvt ppx - Eliquis HCP- Code status-DNR/DNI. Discussed with attending - Dr. Liu dispo - patient unable to ambulate at this time due to ankle pain , PT recommends STR. Long discussion with pt, daughter and case management at [facility]. Family does not want patient to go to rehab due to multiple unpleasant visits in the past due to patient's underlying dementia. unable to care for him at this time due to his inability to ambulate/transfer. ankle pain seems to be improving, plan for repeat PT eval on Sunday and eventual discharge home with services requires ongoing inpatient stay due to sepsis secondary to UTI and need for IV antibiotics and safe disposition Time Spent With Patient Time: Total time managing care of this patient today ____ minutes. Quality Stroke Does the patient have a stroke diagnosis?: No VTE Prior VTE?: No VTE Risk Level:: Medical - moderate - high VTE Device Contraindication: N/A - Device Ordered VTE Drug Contraindication: N/A - Med Ordered
[2023-03-25 11:02] LABS: Glucose, Whole Blood 279 mg/dL (60-115)
[2023-03-25] MEDS: cefTRIAXone sodium 1 GM in 0.9 % Sodium Chloride 50 ML IV (13:37)
[2023-03-25 16:44] LABS: Glucose, Whole Blood 247 mg/dL (60-115)
[2023-03-25 20:58] LABS: Glucose, Whole Blood 279 mg/dL (60-115)
[2023-03-25] MEDS: Insulin Glargine,Hum.rec.anlog 100 UNIT/ML 10 ML VIAL 20 UNIT SUBCUT (22:35)
[2023-03-25 22:55] LABS: Glucose, Whole Blood 212 mg/dL (60-115)
[2023-03-26 03:33] VITALS: BP 160/77; PULSE 77; RESP 18; TEMP 36.6; O2SAT 94
[2023-03-26 07:21] VITALS: BP 140/61; PULSE 84; RESP 18; TEMP 36.3; O2SAT 92
[2023-03-26 07:33] LABS: Glucose, Whole Blood 291 mg/dL (60-115)
[2023-03-26] MEDS: Insulin Lispro 100 UNIT/ML 3 ML VIAL SUBCUT ×4 (08:33→21:11)
[2023-03-26] MEDS: Pravastatin Sodium 40 MG TABLET PO (08:34)
[2023-03-26] MEDS: QUEtiapine Fumarate 25 MG TABLET 12.5 MG PO (08:34)
[2023-03-26] MEDS: Insulin Glargine,Hum.rec.anlog 100 UNIT/ML 10 ML VIAL 10 UNIT SUBCUT (08:34)
[2023-03-26] MEDS: Apixaban 2.5 MG TABLET PO ×2 (08:34→21:11)
[2023-03-26 08:40] VITALS: PULSE 77; RESP 18; O2SAT 92
[2023-03-26] MEDS: 0.9 % Sodium Chloride Flush 3 ML SYRINGE IVFLUSH ×3 (08:45→21:13)
[2023-03-26 11:28] VITALS: BP 138/65; PULSE 65; RESP 18; TEMP 36.6; O2SAT 96
[2023-03-26 11:35] LABS: Glucose, Whole Blood 252 mg/dL (60-115)
--- NOTE | 2023-03-26 14:32 | MHC.CM.PN ---
Addendum entered by Irma Fitch 03/26/23 15:28: [facility] HAS OFFERED A BED WHEN MEDICALLY CLEARED PENDING INSURANCE AUTH. AND PT ARE AGREEABLE TO THIS CENTER. Original Note: P.T. CONTINUES TO RECOMMEND STR. CM MET WITH /HCP AND PT AT BEDSIDE. STEPHANIE HAD A CONVERSATION WITH HER CHILDREN AND SHE NOW AGREES FOR PT TO GO TO STR. REFERRALS SENT TO CONTRACTED FACILITIES AND AWAITING RESPONSES.
[2023-03-26] MEDS: cefTRIAXone sodium 1 GM in 0.9 % Sodium Chloride 50 ML IV (15:01)
--- NOTE | 2023-03-26 15:30 | HO.PM.IMPN ---
Subjective Subjective Date of Service: 03/26/23 Review of Systems Follow up UTI and sepsis doing better poor appetite Physical Exam Vital Signs: Vital Signs: Last Vital Signs Temp 97.8 F 03/26/23 11:28 Pulse 65 03/26/23 11:28 Resp 18 03/26/23 11:28 BP 138/65 03/26/23 11:28 Pulse Ox 96 03/26/23 11:28 O2 Del Method Nasal Cannula 03/26/23 11:28 O2 Flow Rate 1 03/26/23 11:28 BMI result Body Mass Index 31.9 Appearing in no acute distress lung sounds are clear to auscultation heart regular rate rhythm, clear S1, S2 positive bowel sounds, abdomen is soft, nontender neuro patient is alert x3, no focal deficits Objective Data Active Medications Acetaminophen (Acetaminophen 325 Mg Tablet) 650 mg PO Q6H PRN PRN Reason: Pain, Mild (Pain Scale 1-3) Last Admin: 03/25/23 02:13 Dose: 650 mg Documented By: SILAS Apixaban (Apixaban 2.5 Mg Tablet) 2.5 mg PO BID [facility] Last Admin: 03/26/23 08:34 Dose: 2.5 mg Documented By: CASSIA Docusate Sodium (Docusate Sodium 100 Mg Capsule) 100 mg PO DAILY PRN PRN Reason: Constipation Glucose (Glucose Gel 15 Gm Gel..Gram.) 15 gm PO Q15M PRN; Protocol PRN Reason: per Hypoglycemia Standing Ord. Dextrose (D10) 250 mls @ 750 mls/hr IV Q15M PRN; Protocol PRN Reason: per Hypoglycemia Standing Ord. Ceftriaxone Sodium 1 gm/ (Sodium Chloride) 50 mls @ 100 mls/hr IV Q24H [facility] Last Admin: 03/26/23 15:01 Dose: 100 mls/hr Documented By: CASSIA Insulin Glargine (Insulin Glargine,Hum.Rec.Anlog 100 Unit/Ml 10 Ml Vial) 10 unit SUBCUT DAILY [facility] Last Admin: 03/26/23 08:34 Dose: 10 unit Documented By: CASSIA Insulin Glargine (Insulin Glargine,Hum.Rec.Anlog 100 Unit/Ml 10 Ml Vial) 20 unit SUBCUT BEDTIME [facility] Last Admin: 03/25/23 22:35 Dose: 20 unit Documented By: FLIP Insulin Human Lispro (Insulin Lispro 100 Unit/Ml 3 Ml Vial) 0 unit SUBCUT QIDACHS [facility]; Protocol Last Admin: 03/26/23 12:05 Dose: 9 unit Documented By: CASSIA Ondansetron HCl (Ondansetron Hcl 4 Mg/2 Ml Vial) 4 mg IVPUSH Q8H PRN PRN Reason: Nausea and Vomiting Pharmacy Consult (Consult Rx Perform Med Rec) 1 each MISCELLANE ONCE PRN PRN Reason: Consult order Pravastatin Sodium (Pravastatin Sodium 40 Mg Tablet) 40 mg PO DAILY [facility] Last Admin: 03/26/23 08:34 Dose: 40 mg Documented By: CASSIA Quetiapine Fumarate (Quetiapine Fumarate 25 Mg Tablet) 12.5 mg PO DAILY [facility] Last Admin: 03/26/23 08:34 Dose: 12.5 mg Documented By: CASSIA Sodium Chloride (0.9 % Sodium Chloride Flush 3 Ml Syringe) 3 ml IVFLUSH QSHIFT [facility] Last Admin: 03/26/23 08:45 Dose: 3 ml Documented By: CASSIA Tiotropium [place] (Tiotropium [place] 2.5 Mcg Inhaler) 2 puff INHALE RDAILY [facility] Last Admin: 03/26/23 08:39 Dose: 2 puff Documented By: HANYCARR Labs 03/24/23 08:17 03/23/23 07:05 Labs: Laboratory Results - last 24 hr 03/25/23 03/25/23 03/25/23 16:36 20:48 22:34 POC Glucose 247 H 279 H 212 H 03/26/23 03/26/23 07:24 11:32 POC Glucose 291 H 252 H Assessment and Plan (1) Left ankle pain: Status: Acute Plan This is an 87-year-old male with history of dementia, diabetes, COPD on as needed supplemental oxygen, history of DVT/PE on Eliquis who presents to the emergency department with increased urinary frequency and weakness found to have acute urinary tract infection Sepsis secondary UTI Urine culture growing group B strep Continue IV ceftriaxone, started 03/22 - transition to po amox or keflex on d/c total 10 days blood cultures negative to date Left ankle pain DVT study negative for clot h/o ankle fx with resulting septic arthritis and hardware removal - Xray negative for acute changes, no erythema on exam CT with contrast with swelling but negative for effusion, septic arthritis, abscess seen by ortho - no acute infection, no further work up necessary less likely gout given no erythema and pain improving without intervention PT reporting difficulty weight bearing and pain on ambulation Diabetes SSI, POCs, ADA diet continue long acting insulin at lower dose - will up titrate Lantus h/o PE/DVT continue Eliquis h/o COPD/chronic respiratory failure on prn home o2. CXR negative for definitive infection, no wheezing. no respiratory symptoms no acute exacerbation at this time dementia continue seroquel HLD continue statin dvt ppx - Eliquis Code status-DNR/DNI.? Discussed with attending - Dr. Liu DISPO plan for STR when medically stable requires ongoing inpatient stay due to sepsis secondary to UTI and need for IV antibiotics and safe disposition Time Spent With Patient Time: Total time managing care of this patient today ____ minutes. Quality Stroke Does the patient have a stroke diagnosis?: No VTE Prior VTE?: No VTE Risk Level:: Medical - moderate - high VTE Device Contraindication: N/A - Device Ordered VTE Drug Contraindication: N/A - Med Ordered
[2023-03-26 15:59] VITALS: BP 148/70; PULSE 68; RESP 13; TEMP 36.1; O2SAT 95
[2023-03-26 16:18] LABS: Glucose, Whole Blood 188 mg/dL (60-115)
[2023-03-26 20:00] VITALS: BP 149/67; PULSE 60; RESP 14; TEMP 36.2; O2SAT 92
[2023-03-26 20:23] LABS: Glucose, Whole Blood 301 mg/dL (60-115)
[2023-03-26] MEDS: Insulin Glargine,Hum.rec.anlog 100 UNIT/ML 10 ML VIAL 20 UNIT SUBCUT (21:10)
[2023-03-27] VITALS: BP 161/73; PULSE 64; RESP 20; TEMP 36; O2SAT 93
[2023-03-27 03:15] VITALS: BP 176/71; PULSE 76; RESP 20; TEMP 36.9; O2SAT 97
[2023-03-27 07:18] LABS: Anion Gap 13 (12-20); Blood Urea Nitrogen 21 mg/dL (9-16); Calcium 9.6 mg/dL (8.4-10.2); Carbon Dioxide 24 mmol/L (22-29); Chloride 107 mmol/L (96-108); Creatinine Clr Calc Pharmacy 61.2; Estimated Glomerular Filt Rate > 60; Glucose Random 205 mg/dL (60-115); Potassium 4.3 mmol/L (3.3-5.1); Sodium 140 mmol/L (135-145)
[2023-03-27 07:20] VITALS: BP 168/72; PULSE 74; RESP 18; TEMP 36.4; O2SAT 94
[2023-03-27 07:32] LABS: Glucose, Whole Blood 210 mg/dL (60-115)
[2023-03-27] MEDS: Insulin Glargine,Hum.rec.anlog 100 UNIT/ML 10 ML VIAL 10 UNIT SUBCUT (07:58)
[2023-03-27] MEDS: 0.9 % Sodium Chloride Flush 3 ML SYRINGE IVFLUSH (07:59)
[2023-03-27] MEDS: Apixaban 2.5 MG TABLET PO (07:59)
[2023-03-27] MEDS: QUEtiapine Fumarate 25 MG TABLET 12.5 MG PO (07:59)
[2023-03-27] MEDS: Insulin Lispro 100 UNIT/ML 3 ML VIAL SUBCUT ×2 (07:59→12:08)
[2023-03-27] MEDS: Pravastatin Sodium 40 MG TABLET PO (07:59)
[2023-03-27 08:00] VITALS: PULSE 78; RESP 20; O2SAT 94
[2023-03-27 10:39] VITALS: PULSE 78
--- NOTE | 2023-03-27 10:43 | MHC.CM.PN ---
PT MEDICALLY CLEARED FOR D/C TO STR AT [facility], CM CONTACTED PT'S STEPHANIE AT 9:25AM TO DELIVER IMM 03/27/23, STEPHANIE IS AGREEABLE TO D/C AND COPY LEFT AT BEDSIDE PER REQUEST. [facility] WILL TRANSPORT AT 1PM D/T INSURANCE ([facility] MEDIC[facility]).
[2023-03-27 11:19] VITALS: BP 139/63; PULSE 67; RESP 20; TEMP 36.3; O2SAT 94
[2023-03-27 11:36] LABS: Glucose, Whole Blood 193 mg/dL (60-115)
--- NOTE | 2023-03-27 13:17 | P.DS_ITS ---
DS: Providers Provider Date of Service: 03/27/23 Date of admission: 03/22/23 13:37 Primary care physician: Meme Braxton MD Consults: 03/23/23 15:45 Consult to Infectious Diseases Routine Consulting Provider: [facility] Infectious Disease Reason for consultation: sepsis uti vs left ankle infection Has provider been notified: No 03/24/23 11:14 Consult to Orthopedics Routine Consulting Provider: [facility] Orthopedic Surgeons Reason for consultation: left ankle pain Has provider been notified: No DS: Diagnosis Discharge Diagnosis (1) Left ankle pain: Status: Acute DS: Summary Hospital Course Hospital Course: HP as per admitting provider This is an 87-year-old male with history of dementia, diabetes who was brought to the emergency department by his due to increasing weakness and urinary frequency.? Due to patient's dementia he is unable to provide any significant history, history was obtained from his over the phone.? She states that overnight he was urinating more frequently than usual and also had increasing generalized weakness with difficulty transferring in and out of his wheelchair.? She states that he was unable to bear weight on his left leg.? In the emergency department workup was significant for leukocytosis of 19,000, urinalysis concerning for urinary tract infection.? Left leg appeared somewhat edematous and DVT study was obtained and negative for DVT.? Left ankle x-ray also unremarkable for any acute change.? Lactic acid was 2, procalcitonin 0.10.? Oxygen saturation noted to be 88% on room air and therefore chest x-ray obtained which was relatively unremarkable.? He received breathing treatment and improved.? He was treated with IV antibiotics and the decision was made to admit him to the hospital for further management of probable acute urinary tract infection. Unable to obtain full ROS due to dementia, poor historian. He states that he feels fine and has no specific complaints . 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 CXR negative for definitive infection, no wheezing. no respiratory symptoms no acute exacerbation at this time dementia continue seroquel HLD continue statin Time Spent with Patient Time attestation: Total time managing care of this patient today ____ minutes. Discharge coordination time: Greater than 30 minutes Quality: Safe Use of Opioids Does Pt have an Active Cancer Diagnosis on the Problem List?: No Quality: Stroke Does the patient have a stroke diagnosis?: No Physical Exam Vital Signs: Vital Signs: Last Vital Signs Temp 97.4 F 03/27/23 11:19 Pulse 67 03/27/23 11:19 Resp 20 03/27/23 11:19 BP 139/63 03/27/23 11:19 Pulse Ox 94 03/27/23 11:19 O2 Del Method Nasal Cannula 03/27/23 11:19 O2 Flow Rate 1 03/27/23 11:19 BMI result Body Mass Index 31.9 Appearing in no acute distress head is normocephalic atraumatic eyes pupils are PERRLA sclera is anicteric mouth throat mucous membranes are intact and moist neck is supple no lymphadenopathy, no JVD noted lung sounds are clear to auscultation heart regular rate rhythm, clear S1, S2 positive bowel sounds, abdomen is soft, nontender neuro patient is alert x3, no focal deficits DS: Data Data Completed and Pending Labs on day of discharge: Laboratory Results - last 24 hr 03/26/23 03/26/23 03/27/23 16:15 20:20 06: Sodium 140 Potassium 4.3 Chloride 107 Carbon Dioxide 24 Anion Gap 13 BUN 21 H Creatinine 0.97 Estim Creat Clear Calc 61.2 Estimated GFR > 60 POC Glucose 188 H 301 H Random Glucose 205 H Calcium 9.6 03/27/23 03/27/23 07:19 11:17 Sodium Potassium Chloride Carbon Dioxide Anion Gap BUN Creatinine Estim Creat Clear Calc Estimated GFR POC Glucose 210 H 193 H Random Glucose Calcium Preliminary micro results at discharge 03/22/23 11:07 Blood Culture - Preliminary Blood - Venous No growth after 48 hours. 03/22/23 11:07 Blood Culture - Preliminary Blood - Venous No growth after 48 hours. Discharge Plan Discharge Anticipated Discharge Date/Time: 03/27/23 08:43 Patient Disposition: Xfer Inpatient Rehab Fac Discharge Diagnosis: Sepsis secondary to urinary tract infection Referrals: [facility] [Outside] - 1 Day (SHORT TERM REHAB) Meme Braxton MD [Primary Care Provider] - 1 Week Discharge Medications: New amoxicillin 500 mg tablet 500 mg PO Q8H Qty: 12 0RF Continued insulin aspart U-100 [Novolog FlexPen U-100 Insulin] 100 unit/mL (3 mL) Insulin Pen 6 unit SUBCUT DAILY@1300 insulin aspart U-100 [Novolog FlexPen U-100 Insulin] 100 unit/mL (3 mL) Insulin Pen 18 unit SUBCUT DAILY@0900 multivitamin Tablet 1 tab PO DAILY insulin glargine [Lantus U-100 Insulin] 100 unit/mL Solution 22 unit SUBCUT BEDTIME omega-3 fatty acids-fish oil [Fish Oil] 360-1,200 mg Capsule 2 cap PO DAILY Spiriva Respimat 2.5 mcg/actuation Mist 2 puff INHALATION DAILY (DME) FreeStyle Reva 14 Day Sensor Kit See Rx Instructions .ROUTE Q2W Qty: 1 Rx Instructions: As directed pravastatin 40 mg tablet 40 mg PO DAILY apixaban 5 mg tablet 2.5 mg PO BID furosemide 40 mg tablet 40 mg PO DAILY glucose [Dex4 Glucose] 4 gram tablet,chewable 4 g PO Q15M PRN (Reason: Hypoglycemia) Rx Instructions: until symptoms of low blood sugar are controlled insulin glargine 100 unit/mL solution 15 unit subcut DAILY insulin aspart U-100 [Novolog FlexPen U-100 Insulin] 100 unit/mL (3 mL) insulin pen 22 unit subcut DAILY@1700 quetiapine 25 mg tablet 12.5 mg PO DAILY Discharge Orders: Discharge Order (Routine); Ordered 03/27/23 Ordered By: Tory Redmond Diet: Advance to usual diet Activity on Discharge: As tolerated Stand Alone Forms: Patient Portal Discharge page Care Plan Goals: Complete resolution of symptoms Health Concerns: Sepsis secondary to urinary tract infection Plan of Treatment: Follow-up with primary care provider as needed Take all medications as prescribed Assessment: See discharge summary Discharge Date/Time: 03/27/23 13:50
== END 2023-03-27 13:50 | DRG 872 ==
LOC: HO.ED 12:20 → HO.EDOVER 13:44 → HO.IMC 16:06
PROVIDERS: Physician Assistant; Admitting Provider Physician Assistant Medical; Emergency Provider Emergency Medicine Emergency Medical Services; PCP Internal Medicine; Visit Provider Nurse Practitioner Acute Care
DX: A41.9 Sepsis, unspecified organism (principal); N17.9 Acute kidney failure, unspecified; N39.0 Urinary tract infection, site not specified; J96.10 Chronic respiratory failure, unspecified whether with hypoxia or hypercapnia; E11.65 Type 2 diabetes mellitus with hyperglycemia; F03.90 Unspecified dementia, unspecified severity, without behavioral disturbance, psychotic disturbance, mood disturbance, and anxiety; J44.9 Chronic obstructive pulmonary disease, unspecified; Z66 Do not resuscitate; Z86.718 Personal history of other venous thrombosis and embolism; Z86.711 Personal history of pulmonary embolism; E78.5 Hyperlipidemia, unspecified; I25.10 Atherosclerotic heart disease of native coronary artery without angina pectoris; B95.1 Streptococcus, group B, as the cause of diseases classified elsewhere; Z95.1 Presence of aortocoronary bypass graft; M19.072 Primary osteoarthritis, left ankle and foot; Z99.2 Dependence on renal dialysis; Z88.5 Allergy status to narcotic agent; Z88.7 Allergy status to serum and vaccine; Z79.01 Long term (current) use of anticoagulants; Z79.4 Long term (current) use of insulin; Z79.899 Other long term (current) drug therapy
CPT/HCPCS: 36415; 71045; 73610; 73701; 80048; 80076; 81001; 82803; 82947; 83605; 83735; 83880; 84145; 85025; 85027; 87040; 87086; 87147; 93970; 94640; 97162; 97530; 99285; J0696; J2405; J2543; Q9967

== ENCOUNTER 2023-06-05 12:20 | Emergency (ER) | payer MEDICARE, SELFPAY ==
--- NOTE | ~2023-06-05 | XR_ITS ---
EXAMINATION: XR CHEST CLINICAL INFORMATION: Chest pain COMPARISON: 03/22/2023. TECHNIQUE: Frontal view of the chest was obtained. FINDINGS: Examination is at low lung volumes. Status post median sternotomy. Basilar linear atelectatic changes are observed. There is prominence of pulmonary vascularity with partially ill-defined margins. Underlying vascular congestion is a consideration. Pleural surfaces appear to be clear. XR/XR chest 1V IMPRESSION: 1. Findings suspicious for underlying pulmonary vascular congestion. 2. Examination at low lung volumes. Basilar linear atelectatic changes. 3. Pleural surfaces appear to be clear.
--- NOTE | 2023-06-05 12:37 | ECG_ITS ---
Test Reason : CHEST PAIN Blood Pressure : / mmHG Vent. Rate : 067 BPM Atrial Rate : 067 BPM P-R Int : 196 ms QRS Dur : 108 ms QT Int : 408 ms P-R-T Axes : 058 -02 073 degrees QTc Int : 431 ms Normal sinus rhythm Normal ECG When compared with ECG of 05-APR-2009 16:01, No significant change was found Referred By: Ned Rey Electronically Signed By:JUAN BOYLE
[2023-06-05 12:40] VITALS: BP 143/55; BP 144/63; PULSE 68; PULSE 70; RESP 20; TEMP 36.5; O2SAT 90; O2SAT 97; BMI 35.7
[2023-06-05 13:23] LABS: MANUAL DIFF FLAG NO
[2023-06-05 13:26] LABS: Basophils Absolute Auto 0.1 X10*3/uL (0.0-0.2); Basophils Percent Auto 0.7 % (0-2); Eosinophils Absolute Auto 0.3 X10*3/uL (0.0-0.4); Eosinophils Percent Auto 2.4 % (0-4); Hematocrit 36.9 % (42.0-52.0); Hemoglobin 11.4 g/dl (14.0-18.0); Imm Gran Abs Auto 0.04 X10*3/uL (0.00-0.03); Imm Gran Pct Auto 0.3 % (0.0-0.4); Lymphocytes Absolute Auto 4.9 X10*3/uL (1.2-4.9); Mean Corpuscular HGB Conc 30.9 g/dl (31.0-36.0); Mean Corpuscular Volume 87.2 fL (80.0-98.0); Mean Platelet Volume 9.9 fL (9.4-12.4); Monocytes Absolute Auto 1.1 X10*3/uL (0.1-1.2); Monocytes Percent Auto 8.3 % (2-11); Neutrophils Absolute Auto 6.4 x10*3/uL (2.0-8.3); Neutrophils Percent Auto 50.3 % (45-73); Platelet Count 509 X10*3/uL (160-400); Red Blood Count 4.23 X10*6/uL (4.60-5.80); Red Cell Distribution Width 15.5 % (11.0-16.0); White Blood Count 12.8 X10*3/uL (4.8-10.8)
[2023-06-05 13:45] LABS: Alanine Aminotransferase 11 U/L (0-40); Albumin Level 3.6 g/dL (3.5-5.0); Alkaline Phosphatase 105 U/L (39-117); Anion Gap 11 (12-20); Aspartate Amino Transferase 15 U/L (5-37); Bilirubin Total 0.2 mg/dL (0.0-1.0); Blood Urea Nitrogen 20 mg/dL (9-16); Calcium 9.9 mg/dL (8.4-10.2); Carbon Dioxide 28 mmol/L (22-29); Chloride 101 mmol/L (96-108); Creatinine Clr Calc Pharmacy 41.6; Estimated Glomerular Filt Rate 48; Glucose Random 257 mg/dL (60-115); Potassium 4.4 mmol/L (3.3-5.1); Sodium 136 mmol/L (135-145); Total Protein 8.1 g/dL (6.5-8.0)
--- NOTE | 2023-06-05 13:48 | ED.CHESTPAIN ---
HPI - Chest Pain General Chief Complaint: Chest Pain Stated Complaint: CP Time Seen by Provider: 06/05/23 12:57 Source: patient and family Mode of arrival: EMS History of Present Illness HPI narrative: This is an 87-year-old male was multiple medical comorbidities to include CHF, he is currently on Eliquis twice a day and presents after experiencing chest pain at about 1044 this morning and has since received 324 mg of aspirin and 1 of sublingual nitro and at the time of my interview he is completely asymptomatic. Patient reports that his left-sided chest pain was dull and nonradiating. As per EMS the nitro did not help, patient is noted to be 90% on room air and was placed on 3 L by EMS. Patient denies any recent illnesses, fevers, chills, nausea, vomiting, abdominal discomfort. Related Data Home Medications Medication Instructions Recorded Confirmed apixaban 5 mg tablet 2.5 mg PO BID 01/27/23 03/22/23 flash glucose sensor ([id number] #1 ea 01/27/23 Reva 14 Day Sensor kit) furosemide 40 mg tablet 40 mg PO DAILY 01/27/23 03/22/23 glucose 4 gram chewable tablet 4 g PO Q15M PRN Hypoglycemia 01/27/23 03/22/23 (Dex4 Glucose) insulin aspart U-100 100 unit/mL 22 unit subcut DAILY@1700 01/27/23 03/22/23 (3 mL) subcutaneous pen (Novolog FlexPen U-100 Insulin aspart) insulin glargine 100 unit/mL 15 unit subcut DAILY 01/27/23 03/22/23 subcutaneous solution pravastatin 40 mg tablet 40 mg PO DAILY 01/27/23 03/22/23 quetiapine 25 mg tablet 12.5 mg PO DAILY 01/27/23 03/22/23 insulin aspart U-100 100 unit/mL 6 unit subcut DAILY@1300 03/22/23 03/22/23 (3 mL) subcutaneous pen (Novolog FlexPen U-100 Insulin aspart) insulin aspart U-100 100 unit/mL 18 unit subcut DAILY@0900 03/22/23 03/22/23 (3 mL) subcutaneous pen (Novolog FlexPen U-100 Insulin aspart) insulin glargine 100 unit/mL 22 unit subcut BEDTIME 03/22/23 03/22/23 subcutaneous solution (Lantus U-100 Insulin) multivitamin 1 tab PO DAILY 03/22/23 03/22/23 omega-3 fatty acids-fish oil 360 2 cap PO DAILY 03/22/23 03/22/23 mg-1,200 mg capsule (Fish Oil) tiotropium bromide 2.5 2 puff inhalation DAILY 03/22/23 03/22/23 mcg/actuation mist for inhalation (Spiriva Respimat) Previous Rx's Medication Instructions Recorded amoxicillin 500 mg tablet 500 mg PO Q8H #12 tabs 03/27/23 cefdinir 300 mg capsule 300 mg PO BID 7 days #14 caps 06/05/23 Allergies Allergy/AdvReac Type Severity Reaction Status Date / Time codeine [Codeine] Allergy Unknown UNKNOWN Unverified 01/27/23 09:30 tetanus toxoid, adsorbed Allergy Unknown UNKNOWN Unverified 01/27/23 09:30 [Tetanus Toxoid,Adsorbed] Review of Systems Review of Systems: Pertinent positives and negatives as stated in HPI [facility] Past Medical History Source: nursing notes reviewed Medical History COPD (chronic obstructive pulmonary disease) Dementia Diabetes Pulmonary embolism Family History Family History Other Diabetes Social History Social History Household Members: Spouse Housing: House Do you presently have visiting nurse or other home services: No Alcohol intake: never Patient Tobacco Use Status: Never used Tobacco Advance Directives: Yes Advance Directives on File: Yes Advance Directives Date on File: 03/28/23 service: Yes Current occupational status: retired Physical Exam Vital Signs: Vital Signs: Last Vital Signs Temp 97.7 F 06/05/23 12:40 Pulse 64 06/05/23 14:15 Resp 24 H 06/05/23 14:15 BP 162/51 H 06/05/23 14:15 Pulse Ox 95 06/05/23 14:15 O2 Del Method Room Air 06/05/23 14:15 BMI result Body Mass Index 35.7 VITAL SIGNS: Reviewed. GENERAL: Elevated BMI, Well developed, well nourished, in no acute distress. HEAD: Normocephalic/atraumatic EYES: PERRLA, EOMI EARS: Ext canals without abnormality NOSE: Nares patent bilateral OROPHARYNX: no oral lesions noted, posterior pharynx clear NECK: Supple, no adenopathy LUNGS: Bibasilar rales with noted tachypnea, no expiratory wheeze or crackles noted SpO2<93> 2 L via nasal cannula CARDIOVASCULAR: Regular rate and rhythm without noted murmurs, no JVD but bilateral lower extremity 2+ pitting edema ABDOMEN: Soft, non-tender, non-distended with bowel sounds. MUSCULOSKELETAL: No tenderness, deformities, or effusions noted on gross inspection. EXTREMITIES: No cyanosis, clubbing or edema. SKIN: Inspection of the skin reveals no rashes NEUROLOGIC: Alert and oriented x 4. Strength and sensation to light touch were grossly intact x 4. Medications Administered Discontinued Medications Generic Name Dose Route Start Last Admin Trade Name Freq PRN Reason Stop Dose Admin Furosemide 80 mg 06/05/23 13:49 06/05/23 14:19 Furosemide 100 Mg/10 Ml Vial IVPUSH 06/05/23 13:50 80 mg ONCE ONE Administration Protocol Ceftriaxone Sodium 1 gm/ 50 mls @ 100 mls/hr 06/05/23 14:17 06/05/23 18:40 Sodium Chloride IV 06/05/23 14:46 Infused ONCE ONE Infusion Medical Decision Making Medical Decision Making [facility] Narrative: 1405: 87-year-old male with history and clinical presentation, DDX: CHF exacerbation, pneumonia, ACS, viral illness. Patient wishes to go home. On review of all investigations and on re-evaluation in response to Lasix hematologic indices are chronically stable with a baseline leukocytosis without left shift, anemia appears to be chronically stable and is normocytic, there is a slight bump in the platelets, patient has remained afebrile during his stay here in the emergency room. On review of chemistry in to see patient has electrolytes that are without derangement, patient does have a noted DAVID likely secondary to suspected fluid overload/CHF exacerbation despite BNP of 98, this is further supported by chest x-ray findings which do not demonstrate an infiltrate but are definitely consistent with venous congestion and otherwise my interpretation is in agreement with radiology's impression of this chest x-ray.. Patient required supplemental oxygen initially but has progressively been able to, off of the supplemental oxygen without lowering the percentage. Serial troponins are flat and there were no acute changes on EKG. Although my clinical assessment is as patient would benefit from admission he is declining any discussion about admission and wishes to go home. Patient is alert and oriented and understands the risks and benefits to being discharged as opposed to being admitted and optimized for his breathing condition. Patient was also noted to have a urinary tract infection and received initial dose of antibiotics here in the emergency room, he will be discharged with remaining course and instructions to follow-up with his primary care doctor. Differential Diagnosis Differential Diagnoses: The differential diagnosis associated with the presentation includes Please see the discussion above Admission/Observation Consideration of admission/observation: Escalation of care including admission/observation considered Please see the discussion above Lab Data MDM Lab Attestation statement: I reviewed the patient's lab results. Please see the discussion above 06/05/23 13:19 06/05/23 13:19 Labs: Lab Results 06/05/23 06/05/23 06/05/23 Range/Units 13:19 13:19 13:19 WBC 12.8 H (4.8-10.8) X10*3/uL RBC 4.23 L (4.60-5.80) X10*6/uL Hgb 11.4 L (14.0-18.0) g/dl Hct 36.9 L (42.0-52.0) % MCV 87.2 (80.0-98.0) fL MCH 27.0 (27.0-33.0) pg MCHC 30.9 L (31.0-36.0) g/dl RDW 15.5 (11.0-16.0) % Plt Count 509 H D (160-400) X10*3/uL MPV 9.9 (9.4-12.4) fL Immature Gran % (Auto) 0.3 (0.0-0.4) % Neut % (Auto) 50.3 (45-73) % Lymph % (Auto) 38.0 (20-40) % [place] % (Auto) 8.3 (2-11) % Eos % (Auto) 2.4 (0-4) % Baso % (Auto) 0.7 (0-2) % Lymph # (Auto) 4.9 (1.2-4.9) X10*3/uL [place] # (Auto) 1.1 (0.1-1.2) X10*3/uL Eos # (Auto) 0.3 (0.0-0.4) X10*3/uL Baso # (Auto) 0.1 (0.0-0.2) X10*3/uL Abs Immat Gran (auto) 0.04 H (0.00-0.03) X10*3/uL Absolute Neuts (auto) 6.4 (2.0-8.3) x10*3/uL Absolute Nucleated RBC 0.000 (0.0-0.012) X10*3/uL Nucleated RBC % (auto) 0.0 (0.0-0.2) /100WBC Sodium 136 (135-145) mmol/L Potassium 4.4 (3.3-5.1) mmol/L Chloride 101 (96-108) mmol/L Carbon Dioxide 28 (22-29) mmol/L Anion Gap 11 L (12-20) BUN 20 H (9-16) mg/dL Creatinine 1.41 H (0.5-1.4) mg/dL Estim Creat Clear Calc 41.6 Estimated GFR 48 Random Glucose 257 H (60-115) mg/dL Lactic Acid (0.5-2.0) mmol/L Calcium 9.9 (8.4-10.2) mg/dL Magnesium 2.0 (1.6-2.6) mg/dL Total Bilirubin 0.2 (0.0-1.0) mg/dL AST 15 (5-37) U/L ALT 11 (0-40) U/L Alkaline Phosphatase 105 (39-117) U/L Troponin I High Sens 11.1 (<3.5-35.0) ng/L B-Natriuretic Peptide (<100) pg/mL Total Protein 8.1 H (6.5-8.0) g/dL Albumin 3.6 (3.5-5.0) g/dL Urine Color Urine Appearance Urine pH (5.0-9.0) Ur Specific [place] (1.005-1.025) Urine Protein (Neg-Trace) mg/dL Urine Glucose (UA) (Negative) mg/dL Urine Ketones (Negative) mg/dL Urine Blood (Negative) Urine Nitrite (Negative) Ur Leukocyte Esterase (Negative) Urine RBC (0-2) /HPF Urine WBC (0-5) /HPF Ur Squamous Epith Cells (0-2) /HPF Urine Bacteria (None Seen) Hyaline Casts (0-2) /LPF 06/05/23 06/05/23 06/05/23 Range/Units 13:19 13:42 14:38 WBC (4.8-10.8) X10*3/uL RBC (4.60-5.80) X10*6/uL Hgb (14.0-18.0) g/dl Hct (42.0-52.0) % MCV (80.0-98.0) fL MCH (27.0-33.0) pg MCHC (31.0-36.0) g/dl RDW (11.0-16.0) % Plt Count (160-400) X10*3/uL MPV (9.4-12.4) fL Immature Gran % (Auto) (0.0-0.4) % Neut % (Auto) (45-73) % Lymph % (Auto) (20-40) % [place] % (Auto) (2-11) % Eos % (Auto) (0-4) % Baso % (Auto) (0-2) % Lymph # (Auto) (1.2-4.9) X10*3/uL [place] # (Auto) (0.1-1.2) X10*3/uL Eos # (Auto) (0.0-0.4) X10*3/uL Baso # (Auto) (0.0-0.2) X10*3/uL Abs Immat Gran (auto) (0.00-0.03) X10*3/uL Absolute Neuts (auto) (2.0-8.3) x10*3/uL Absolute Nucleated RBC (0.0-0.012) X10*3/uL Nucleated RBC % (auto) (0.0-0.2) /100WBC Sodium (135-145) mmol/L Potassium (3.3-5.1) mmol/L Chloride (96-108) mmol/L Carbon Dioxide (22-29) mmol/L Anion Gap (12-20) BUN (9-16) mg/dL Creatinine (0.5-1.4) mg/dL Estim Creat Clear Calc Estimated GFR Random Glucose (60-115) mg/dL Lactic Acid 1.3 (0.5-2.0) mmol/L Calcium (8.4-10.2) mg/dL Magnesium (1.6-2.6) mg/dL Total Bilirubin (0.0-1.0) mg/dL AST (5-37) U/L ALT (0-40) U/L Alkaline Phosphatase (39-117) U/L Troponin I High Sens (<3.5-35.0) ng/L B-Natriuretic Peptide 98 (<100) pg/mL Total Protein (6.5-8.0) g/dL Albumin (3.5-5.0) g/dL Urine Color Yellow Urine Appearance Cloudy Urine pH 5.5 (5.0-9.0) Ur Specific [place] 1.010 (1.005-1.025) Urine Protein Negative (Neg-Trace) mg/dL Urine Glucose (UA) 100 H (Negative) mg/dL Urine Ketones Negative (Negative) mg/dL Urine Blood Negative (Negative) Urine Nitrite Negative (Negative) Ur Leukocyte Esterase Large (3+) H (Negative) Urine RBC 0-2 (0-2) /HPF Urine WBC >50 H (0-5) /HPF Ur Squamous Epith Cells 0-2 (0-2) /HPF Urine Bacteria 4+ (None Seen) Hyaline Casts 0-2 (0-2) /LPF 06/05/23 Range/Units 17:00 WBC (4.8-10.8) X10*3/uL RBC (4.60-5.80) X10*6/uL Hgb (14.0-18.0) g/dl Hct (42.0-52.0) % MCV (80.0-98.0) fL MCH (27.0-33.0) pg MCHC (31.0-36.0) g/dl RDW (11.0-16.0) % Plt Count (160-400) X10*3/uL MPV (9.4-12.4) fL Immature Gran % (Auto) (0.0-0.4) % Neut % (Auto) (45-73) % Lymph % (Auto) (20-40) % [place] % (Auto) (2-11) % Eos % (Auto) (0-4) % Baso % (Auto) (0-2) % Lymph # (Auto) (1.2-4.9) X10*3/uL [place] # (Auto) (0.1-1.2) X10*3/uL Eos # (Auto) (0.0-0.4) X10*3/uL Baso # (Auto) (0.0-0.2) X10*3/uL Abs Immat Gran (auto) (0.00-0.03) X10*3/uL Absolute Neuts (auto) (2.0-8.3) x10*3/uL Absolute Nucleated RBC (0.0-0.012) X10*3/uL Nucleated RBC % (auto) (0.0-0.2) /100WBC Sodium (135-145) mmol/L Potassium (3.3-5.1) mmol/L Chloride (96-108) mmol/L Carbon Dioxide (22-29) mmol/L Anion Gap (12-20) BUN (9-16) mg/dL Creatinine (0.5-1.4) mg/dL Estim Creat Clear Calc Estimated GFR Random Glucose (60-115) mg/dL Lactic Acid (0.5-2.0) mmol/L Calcium (8.4-10.2) mg/dL Magnesium (1.6-2.6) mg/dL Total Bilirubin (0.0-1.0) mg/dL AST (5-37) U/L ALT (0-40) U/L Alkaline Phosphatase (39-117) U/L Troponin I High Sens 9.0 (<3.5-35.0) ng/L B-Natriuretic Peptide (<100) pg/mL Total Protein (6.5-8.0) g/dL Albumin (3.5-5.0) g/dL Urine Color Urine Appearance Urine pH (5.0-9.0) Ur Specific [place] (1.005-1.025) Urine Protein (Neg-Trace) mg/dL Urine Glucose (UA) (Negative) mg/dL Urine Ketones (Negative) mg/dL Urine Blood (Negative) Urine Nitrite (Negative) Ur Leukocyte Esterase (Negative) Urine RBC (0-2) /HPF Urine WBC (0-5) /HPF Ur Squamous Epith Cells (0-2) /HPF Urine Bacteria (None Seen) Hyaline Casts (0-2) /LPF Independent Interpretation I performed an independent interpretation of an: EKG Interpretation: Normal sinus rhythm, HR-67, no STEMI, HI/QTC are within normal limits. Radiology Impression Discussion of test interpretation with radiology: I have reviewed the radiologist's reading. Radiologist Impression: Please see the discussion above External Record Review External record reviewed: Outpatient record, Prior outpatient labs and Prior outpatient radiology Chronic Conditions Patient?s care impacted by: Diabetes and Hypertension Critical Care Time Critical Care Time Critical Care Time: Yes Total Critical Care Time: 45 Attestation: I personally attest to this time spent taking care of the patient. Discharge Plan Discharge Clinical Impression: CHF exacerbation, DAVID (acute kidney injury), Acute UTI Patient Disposition: Left Against Medical Advice Instructions: Heart Failure (ED), Acute Kidney Injury (DC), Urinary Tract Infection in Men (ED) Additional Instructions: 1. Resume all home medications as prescribed. 2. Complete the entire course of antibiotics as prescribed for your urinary tract infection. 3. You will need to follow-up with your primary care doctor in the next 1-2 days. 4. Do not hesitate to return to the emergency room for any worsening changes in your breathing status. Prescriptions: New cefdinir 300 mg capsule 300 mg PO BID 7 Days Qty: 14 0RF No Action insulin aspart U-100 [Novolog FlexPen U-100 Insulin] 100 unit/mL (3 mL) Insulin Pen 6 unit SUBCUT DAILY@1300 insulin aspart U-100 [Novolog FlexPen U-100 Insulin] 100 unit/mL (3 mL) Insulin Pen 18 unit SUBCUT DAILY@0900 multivitamin Tablet 1 tab PO DAILY insulin glargine [Lantus U-100 Insulin] 100 unit/mL Solution 22 unit SUBCUT BEDTIME omega-3 fatty acids-fish oil [Fish Oil] 360-1,200 mg Capsule 2 cap PO DAILY Spiriva Respimat 2.5 mcg/actuation Mist 2 puff INHALATION DAILY amoxicillin 500 mg tablet 500 mg PO Q8H Qty: 12 0RF (DME) FreeStyle Reva 14 Day Sensor Kit See Rx Instructions .ROUTE Q2W Qty: 1 Rx Instructions: As directed pravastatin 40 mg tablet 40 mg PO DAILY apixaban 5 mg tablet 2.5 mg PO BID furosemide 40 mg tablet 40 mg PO DAILY glucose [Dex4 Glucose] 4 gram tablet,chewable 4 g PO Q15M PRN (Reason: Hypoglycemia) Rx Instructions: until symptoms of low blood sugar are controlled insulin glargine 100 unit/mL solution 15 unit subcut DAILY insulin aspart U-100 [Novolog FlexPen U-100 Insulin] 100 unit/mL (3 mL) insulin pen 22 unit subcut DAILY@1700 quetiapine 25 mg tablet 12.5 mg PO DAILY Referrals: Lexy Naylor, SYSTEM SPECIALIST [Primary Care Provider] - Stand Alone Forms: Against Medical Advice
[2023-06-05 13:51] LABS: B Type Natriuretic Peptide 98 pg/mL (<100); Troponin-I High Sensitivity 11.1 ng/L (<3.5-35.0)
[2023-06-05 14:08] LABS: Appearance Urine Cloudy; Color Urine Yellow; Glucose Urine UA 100 mg/dL (Negative); Leukocyte Esterase Urine Large (3+) (Negative); Nitrite Urine Negative (Negative); PH 5.5 (5.0-9.0); UMIC TRIGGER UACC YES; Urine Blood Negative (Negative); Urine Ketones Negative (Negative); Urine Protein Negative (Neg-Trace)
[2023-06-05 14:11] LABS: Bacteria Urine 4+ (None Seen); Hyaline Casts Urine 0-2 /LPF (0-2); RBC Urine 0-2 /HPF (0-2); Squamous Epithelial Cell Urine 0-2 /HPF (0-2); UACC Culture Trigger YES; WBC Urine >50 /HPF (0-5)
[2023-06-05 14:15] VITALS: BP 162/51; PULSE 64; RESP 24; O2SAT 95
[2023-06-05] MEDS: Furosemide 100 MG/10 ML VIAL 80 MG IVPUSH (14:19)
[2023-06-05 15:01] LABS: Lactic Acid 1.3 mmol/L (0.5-2.0)
[2023-06-05] MEDS: cefTRIAXone sodium 1 GM in 0.9 % Sodium Chloride 50 ML IV (15:51)
--- NOTE | 2023-06-05 18:43 | PC.NURSE ---
Patient alert and oriented x 2. Patients chest pain was gone by the time he reached ED. Patient tele: sinus rythym Patient denies chest pain, sob, and dizziness. troponins -x 2. iv ceftriaxone given for UTI. Will continue with plan of care.
== END 2023-06-05 19:24 | disposition left against medical advice (07) ==
PROVIDERS: Physician Assistant; Emergency Provider Student in an Organized Health Care Education/Training Program; PCP Nurse Practitioner Family
DX: I50.9 Heart failure, unspecified (principal); N17.9 Acute kidney failure, unspecified; N39.0 Urinary tract infection, site not specified; B95.1 Streptococcus, group B, as the cause of diseases classified elsewhere; R60.0 Localized edema; R06.82 Tachypnea, not elsewhere classified; E11.9 Type 2 diabetes mellitus without complications; J44.9 Chronic obstructive pulmonary disease, unspecified; Z86.711 Personal history of pulmonary embolism; Z79.01 Long term (current) use of anticoagulants; Z79.4 Long term (current) use of insulin; Z79.899 Other long term (current) drug therapy
CPT/HCPCS: 36415; 71045; 80053; 81001; 81003; 83605; 83735; 83880; 84484; 85025; 87040; 87086; 87147; 93005; 96365; 96366; 96375; 99284; J0696; J1940

== ENCOUNTER 2023-06-26 03:30 | Inpatient (IN) | payer OTHER, MEDICARE, SELFPAY ==
[2023-06-26] VITALS (14 sets, daily range): BP systolic 117–166; BP diastolic 51–71; PULSE 86–115; RESP 20–37; TEMP 37.3–39.9; O2SAT 76–100; BMI 33.5
--- NOTE | 2023-06-26 | ECG_ITS ---
Test Reason : SOB Blood Pressure : / mmHG Vent. Rate : 112 BPM Atrial Rate : 112 BPM P-R Int : 188 ms QRS Dur : 104 ms QT Int : 328 ms P-R-T Axes : 093 -08 087 degrees QTc Int : 447 ms Sinus tachycardia Nonspecific ST and T wave abnormality Abnormal ECG When compared with ECG of 05-JUN-2023 12:58, Vent. rate has increased BY 45 BPM Referred By: Linda Vallejo Electronically Signed By:JUAN BOYLE
--- NOTE | ~2023-06-26 | CT_ITS ---
EXAM: CT scan of the chest, abdomen, and pelvis. INDICATION: Shortness of breath. Acute respiratory failure. Abdominal pain. COMPARISON: None available TECHNIQUE: Multidetector helical imaging of the chest, abdomen, and pelvis was obtained from the thoracic inlet through the pubic symphysis. Coronal and sagittal reformatted images that were obtained were also reviewed. This CT examination was performed using dose optimization techniques as appropriate, variously including the following: *Automated exposure control *Adjustment of mA and/or kV according to patient size (this includes techniques or standardized protocols for targeted exams where dose is matched to indication/reason for exam; i.e. extremities or head) *Use of iterative reconstruction technique DLP: 1714 mGy-cm FINDINGS: CHEST: Evaluation of lung parenchyma is limited secondary to respiratory motion artifact. There is no gross lobar consolidation present. There is dependent atelectasis bilaterally. Mild diffuse emphysematous changes with mild subpleural reticular changes. 1.5 cm subpleural pulmonary nodule the left upper lobe (image [id number], series 7). A few other sub-5 mm pulmonary nodules are scattered throughout the lungs. Some perinephric fissural nodular densities are most suggestive of nodes. No pleural effusion or pneumothorax. The heart is enlarged. Coronary artery calcifications are present. There is no pericardial effusion. Normal caliber thoracic aorta. Mildly dilated main pulmonary artery suggesting pulmonary arterial hypertension. No gross mediastinal or hilar lymphadenopathy appreciated on today's noncontrast imaging. No pathologically enlarged axillary lymph nodes. Right thyroid nodule. ABDOMEN/PELVIS: The liver is normal in size. Several tiny punctate calcified granulomas are present within the liver. The gallbladder is not visualized and presumed to be surgically absent. There is severe fatty atrophy of the pancreas. A well-defined spleen is not visualized. The adrenal glands are unremarkable. No renal calculi or hydronephrosis of either kidney. The stomach is decompressed. Normal caliber loops of small and large bowel. Mild to moderate colonic stool burden. Normal appendix. There is a ventral abdominal hernia which contains a loop of nonobstructed transverse colon. Fascial defect of this hernia measures approximately 4.1 x 3.8 cm in transverse by craniocaudal dimension. Normal caliber abdominal aorta demonstrating moderate atherosclerotic disease. Infrarenal IVC filter noted. No retroperitoneal lymphadenopathy. The bladder is decompressed around a Lopez catheter and therefore not accurately evaluated. Air within the bladder is suspected to be iatrogenic. The prostate gland is not enlarged. No gross free pelvic fluid. Tiny fat-containing inguinal hernias bilaterally. Shotty bilateral inguinal lymph nodes. OSSEOUS STRUCTURES Diffuse osteopenia. Scoliotic and degenerative changes of the spine. Patient is status post sternotomy. Subacute versus old nonhealed left posterior 11th rib fracture. Several other healed old bilateral rib fractures. CT/CT abdomen pelvis wo IV con IMPRESSION: 1. 1.5 cm subpleural pulmonary nodule of the left upper lobe. Malignancy is within the differential. 2. Mild emphysema with subpleural reticular changes suggesting interstitial lung disease. 3. Right thyroid nodule. 4. Ventral abdominal hernia which contains a loop of nonobstructed transverse colon.
--- NOTE | ~2023-06-26 | XR_ITS ---
EXAMINATION: XR CHEST CLINICAL INFORMATION: Dyspnea. COMPARISON: 06/05/2023 TECHNIQUE: Frontal view of the chest was obtained. FINDINGS: The lung volumes are low. The cardiomediastinal silhouette is stable. There is bilateral lower lung field increased markings with dense consolidation at the left base which was present previously. There is no new consolidation or evidence for significant pleural effusion. There has been a previous median sternotomy. The bony structures and soft tissues are unremarkable. XR/XR chest 1V IMPRESSION: 1. Low lung volumes limits evaluation. 2. Chronic diffuse increased markings. 3. Dense consolidative change at the left lung base was seen previously and is likely chronic versus recurrent infiltrate.
[2023-06-26 04:02] LABS: Hematocrit 36.9 % (42.0-52.0); Hemoglobin 11.8 g/dl (14.0-18.0); Mean Corpuscular Hemoglobin 27.3 pg (27.0-33.0); Mean Corpuscular Volume 85.2 fL (80.0-98.0); Mean Platelet Volume 10.1 fL (9.4-12.4); Platelet Count 368 X10*3/uL (160-400); Red Blood Count 4.33 X10*6/uL (4.60-5.80)
[2023-06-26 04:03] LABS: White Blood Count 33.8 X10*3/uL (4.8-10.8)
--- NOTE | 2023-06-26 04:03 | ED_ITS ---
HPI - SOB/Dyspnea General Chief Complaint: Dyspnea Stated Complaint: resp distress Time Seen by Provider: 06/26/23 03:36 Source: EMS Mode of arrival: EMS History of Present Illness HPI Narrative: 88-year-old male was brought in by EMS after they were called by patient's for a slip and fall out of bed. On arrival patient was found to be 76% on room air and he is supposed to be on oxygen and EMS states that he was in obvious respiratory distress. Patient does have a significant history of COPD and CHF. He was recently treated for a UTI. Related Data Home Medications Medication Instructions Recorded Confirmed apixaban 5 mg tablet 2.5 mg PO BID 01/27/23 03/22/23 flash glucose sensor ([employer] #1 ea 01/27/23 Reva 14 Day Sensor kit) furosemide 40 mg tablet 40 mg PO DAILY 01/27/23 03/22/23 glucose 4 gram chewable tablet 4 g PO Q15M PRN Hypoglycemia 01/27/23 03/22/23 (Dex4 Glucose) insulin aspart U-100 100 unit/mL 22 unit subcut DAILY@1700 01/27/23 03/22/23 (3 mL) subcutaneous pen (Novolog FlexPen U-100 Insulin aspart) insulin glargine 100 unit/mL 15 unit subcut DAILY 01/27/23 03/22/23 subcutaneous solution pravastatin 40 mg tablet 40 mg PO DAILY 01/27/23 03/22/23 quetiapine 25 mg tablet 12.5 mg PO DAILY 01/27/23 03/22/23 insulin aspart U-100 100 unit/mL 6 unit subcut DAILY@1300 03/22/23 03/22/23 (3 mL) subcutaneous pen (Novolog FlexPen U-100 Insulin aspart) insulin aspart U-100 100 unit/mL 18 unit subcut DAILY@0900 03/22/23 03/22/23 (3 mL) subcutaneous pen (Novolog FlexPen U-100 Insulin aspart) insulin glargine 100 unit/mL 22 unit subcut BEDTIME 03/22/23 03/22/23 subcutaneous solution (Lantus U-100 Insulin) multivitamin 1 tab PO DAILY 03/22/23 03/22/23 omega-3 fatty acids-fish oil 360 2 cap PO DAILY 03/22/23 03/22/23 mg-1,200 mg capsule (Fish Oil) tiotropium bromide 2.5 2 puff inhalation DAILY 03/22/23 03/22/23 mcg/actuation mist for inhalation (Spiriva Respimat) Previous Rx's Medication Instructions Recorded amoxicillin 500 mg tablet 500 mg PO Q8H #12 tabs 03/27/23 cefdinir 300 mg capsule 300 mg PO BID 7 days #14 caps 06/05/23 Allergies Allergy/AdvReac Type Severity Reaction Status Date / Time codeine [Codeine] Allergy Unknown UNKNOWN Verified 06/26/23 06:40 tetanus toxoid, adsorbed Allergy Unknown UNKNOWN Verified 06/26/23 06:40 [Tetanus Toxoid,Adsorbed] Review of Systems Review of Systems: Pertinent positives and negatives as stated in [facility] Past Medical History Source: nursing notes reviewed Medical History COPD (chronic obstructive pulmonary disease) Dementia Diabetes Pulmonary embolism Family History Family History Other Diabetes Social History Social History Household Members: Spouse Housing: House Do you presently have visiting nurse or other home services: No Alcohol intake: never Patient Tobacco Use Status: Never used Tobacco Smoked in Last 30 Days: No Use of substances other than those prescribed or required for medical reasons: No Advance Directives: Yes Advance Directives on File: Yes Advance Directives Date on File: 03/28/23 service: Yes Current occupational status: retired Physical Exam Vital Signs: Vital Signs: Last Vital Signs Temp 101.5 F H 06/26/23 06:13 Pulse 101 H 06/26/23 06:13 Resp 26 H 06/26/23 06:13 BP 132/59 L 06/26/23 06:13 Pulse Ox 92 06/26/23 06:13 O2 Del Method Oxymask 06/26/23 06:13 O2 Flow Rate 5 06/26/23 06:13 BMI result Body Mass Index 33.5 VITAL SIGNS: Reviewed. GENERAL: Elevated BMI, Well developed, well nourished, in moderate distress. HEAD: Normocephalic/atraumatic EYES: PERRLA, EOMI EARS: Ext canals without abnormality NOSE: Nares patent bilateral OROPHARYNX: no oral lesions noted, posterior pharynx clear NECK: Supple, no adenopathy LUNGS: Decreased bilaterally breath sounds with some expiratory wheeze SpO2<93> on CPAP (EMS) CARDIOVASCULAR: Regular rate and rhythm without noted murmurs, no JVD with bilat eral lower extremity edema ABDOMEN: Soft, non-tender, non-distended with bowel sounds. MUSCULOSKELETAL: No tenderness, deformities, or effusions noted on gross inspection. EXTREMITIES: No cyanosis, clubbing or edema. LLE: Erythema and warmth SKIN: Inspection of the skin reveals no rashes NEUROLOGIC: Alert and oriented x 3. Strength and sensation to light touch were grossly intact x 4. Medications Administered Generic Name Dose Route Start Last Admin Trade Name Freq PRN Reason Stop Dose Admin Sodium Chloride 500 mls @ 999 mls/hr 06/26/23 07:15 06/26/23 07:12 Ns IV 06/26/23 07:45 999 mls/hr .Q31M RE Administration Discontinued Medications Generic Name Dose Route Start Last Admin Trade Name Freq PRN Reason Stop Dose Admin Acetaminophen 650 mg 06/26/23 04:03 06/26/23 04:15 Acetaminophen Supp 650 Mg Supp.Rect NH 06/26/23 04:04 650 mg ONCE ONE Administration Furosemide 60 mg 06/26/23 06:26 06/26/23 07:05 Furosemide 100 Mg/10 Ml Vial IVPUSH 06/26/23 06:27 60 mg ONCE ONE Administration Protocol Piperacillin Sod/Tazobactam 50 mls @ 100 mls/hr 06/26/23 04:04 06/26/23 05:12 Sod 3.375 gm/ Sodium Chloride IV 06/26/23 04:33 Infused ONCE ONE Infusion Medical Decision Making Medical Decision Making [facility] Narrative: 88-year-old male with history and clinical presentation consistent with acute respiratory failure which is felt to be multifactorial and is likely a combination of COPD and CHF with suspected cellulitis. Patient placed immediately on BiPAP 09/26. I reviewed all investigations and patient has a significant leukocytosis with left shift and bandemia with chronically stable normocytic anemia and no thrombocytopenia. Coagulation studies are grossly within normal limits. VBG does not demonstrate respiratory acidosis and patient does not appear to have hypercapnia. Chemistry indices demonstrate a normal potassium but patient has DAVID and is noted to be hyperglycemic with a mild lactic acidosis of 2.8 and an elevated troponin which is likely secondary to patient's acute respiratory failure and BNP is 148 but I do not feel that this is secondary to fluid overload at this time as patient has new DAVID which is likely contributing. Unclear etiology of infection at this time, but could be left lower extremity cellulitis, antibiotics have been given. I suspect that patient's acute respiratory failure may have been due to poor compliance with oxygen requirement in conjunction with 's assessment. I do not see significant chest x-ray changes when compared to prior and BNP is only mildly elevated which could be secondary to DAVID. No evidence to suggest acute COPD exacerbation. EKG does not show acute ischemic changes. Signed out to Dr Osorio - CT scans Differential Diagnosis Differential Diagnoses: The differential diagnosis associated with the presentation includes Please see the discussion above Admission/Observation Consideration of admission/observation: Escalation of care including admission/observation considered Please see the discussion above Lab Data MDM Lab Attestation statement: I reviewed the patient's lab results. Please see the discussion above 06/26/23 03:53 06/26/23 03:53 Labs: Lab Results 06/26/23 06/26/23 06/26/23 Range/Units 03:53 03:53 03:53 WBC 33.8 H* (4.8-10.8) X10*3/uL RBC 4.33 L (4.60-5.80) X10*6/uL Hgb 11.8 L (14.0-18.0) g/dl Hct 36.9 L (42.0-52.0) % MCV 85.2 (80.0-98.0) fL MCH 27.3 (27.0-33.0) pg MCHC 32.0 (31.0-36.0) g/dl RDW 16.0 (11.0-16.0) % Plt Count 368 D (160-400) X10*3/uL MPV 10.1 (9.4-12.4) fL Immature Gran % (Auto) Cancelled Neut % (Auto) Cancelled Lymph % (Auto) Cancelled [place] % (Auto) Cancelled Eos % (Auto) Cancelled Baso % (Auto) Cancelled Lymph # (Auto) Cancelled [place] # (Auto) Cancelled Eos # (Auto) Cancelled Baso # (Auto) Cancelled Abs Immat Gran (auto) Cancelled Absolute Neuts (auto) Cancelled Absolute Nucleated RBC 0.000 (0.0-0.012) X10*3/uL Nucleated RBC % (auto) 0.0 (0.0-0.2) /100WBC Neutrophils % (Manual) 71 (45-73) % Band Neutrophils % 11 H (3-5) % Lymphocytes % (Manual) 10 L (20-40) % Monocytes % (Manual) 8 (2-11) % Abs Neuts (Manual) 27.7 H (2.0-8.3) X10*3/uL Lymphocytes # (Manual) 3.4 (1.2-4.9) X10*3/uL Monocytes # (Manual) 2.7 H (0.1-1.2) X10*3/uL Toxic Vacuolation PRESENT Platelet Estimate NORMAL (NORMAL) Plt Morphology Comment NORMAL RBC Morphology NOTED Polychromasia 1+ (0-2) /OIF Spherocytes 1+ (0-2) /OIF Mcdonald-[place] Bodies PRESENT Acanthocytes (Spur) 2+ (3-5) /OIF Rouleaux PRESENT Schistocytes 1+ (0-2) /OIF PT 13.1 (11.1-13.3) SEC INR 1.1 (0.9-1.1) VBG pH (7.32-7.43) VBG pCO2 mmHg VBG pO2 mmHg VBG HCO3 (22-26) mmol/L VBG O2 Saturation % VBG Base Excess mmol/L Sodium 137 (135-145) mmol/L Potassium 4.1 (3.3-5.1) mmol/L Chloride 102 (96-108) mmol/L Carbon Dioxide 24 (22-29) mmol/L Anion Gap 15 (12-20) BUN 23 H (9-16) mg/dL Creatinine 1.58 H (0.5-1.4) mg/dL Estim Creat Clear Calc 37.7 Estimated GFR 42 Random Glucose 239 H (60-115) mg/dL Lactic Acid (0.5-2.0) mmol/L Lactic Acid F/U @ 2Hr (0.5-2.0) mmol/L Calcium 9.9 (8.4-10.2) mg/dL Total Bilirubin 0.6 (0.0-1.0) mg/dL AST 22 (5-37) U/L ALT 14 (0-40) U/L Alkaline Phosphatase 100 (39-117) U/L Troponin I High Sens (<3.5-35.0) ng/L B-Natriuretic Peptide (<100) pg/mL Total Protein 7.9 (6.5-8.0) g/dL Albumin 3.8 (3.5-5.0) g/dL Urine Color Urine Appearance Urine pH (5.0-9.0) Ur Specific [place] (1.005-1.025) Urine Protein (Neg-Trace) mg/dL Urine Glucose (UA) (Negative) mg/dL Urine Ketones (Negative) mg/dL Urine Blood (Negative) Urine Nitrite (Negative) Ur Leukocyte Esterase (Negative) Urine RBC (0-2) /HPF Urine WBC (0-5) /HPF Ur Squamous Epith Cells (0-2) /HPF Urine Bacteria (None Seen) Hyaline Casts (0-2) /LPF Influenza Type A (PCR) (Negative) Influenza Type B (PCR) (Negative) RSV RNA Qual (PCR) (Negative) SARS-CoV-2 RNA (RT-PCR) (Negative) 06/26/23 06/26/23 06/26/23 Range/Units 03:53 03:53 03:53 WBC (4.8-10.8) X10*3/uL RBC (4.60-5.80) X10*6/uL Hgb (14.0-18.0) g/dl Hct (42.0-52.0) % MCV (80.0-98.0) fL MCH (27.0-33.0) pg MCHC (31.0-36.0) g/dl RDW (11.0-16.0) % Plt Count (160-400) X10*3/uL MPV (9.4-12.4) fL Immature Gran % (Auto) Neut % (Auto) Lymph % (Auto) [place] % (Auto) Eos % (Auto) Baso % (Auto) Lymph # (Auto) [place] # (Auto) Eos # (Auto) Baso # (Auto) Abs Immat Gran (auto) Absolute Neuts (auto) Absolute Nucleated RBC (0.0-0.012) X10*3/uL Nucleated RBC % (auto) (0.0-0.2) /100WBC Neutrophils % (Manual) (45-73) % Band Neutrophils % (3-5) % Lymphocytes % (Manual) (20-40) % Monocytes % (Manual) (2-11) % Abs Neuts (Manual) (2.0-8.3) X10*3/uL Lymphocytes # (Manual) (1.2-4.9) X10*3/uL Monocytes # (Manual) (0.1-1.2) X10*3/uL Toxic Vacuolation Platelet Estimate (NORMAL) Plt Morphology Comment RBC Morphology Polychromasia /OIF Spherocytes /OIF Mcdonald-[place] Bodies Acanthocytes (Spur) /OIF Rouleaux Schistocytes /OIF PT (11.1-13.3) SEC INR (0.9-1.1) VBG pH (7.32-7.43) VBG pCO2 mmHg VBG pO2 mmHg VBG HCO3 (22-26) mmol/L VBG O2 Saturation % VBG Base Excess mmol/L Sodium (135-145) mmol/L Potassium (3.3-5.1) mmol/L Chloride (96-108) mmol/L Carbon Dioxide (22-29) mmol/L Anion Gap (12-20) BUN (9-16) mg/dL Creatinine (0.5-1.4) mg/dL Estim Creat Clear Calc Estimated GFR Random Glucose (60-115) mg/dL Lactic Acid 2.8 H* (0.5-2.0) mmol/L Lactic Acid F/U @ 2Hr (0.5-2.0) mmol/L Calcium (8.4-10.2) mg/dL Total Bilirubin (0.0-1.0) mg/dL AST (5-37) U/L ALT (0-40) U/L Alkaline Phosphatase (39-117) U/L Troponin I High Sens 35.8 H D (<3.5-35.0) ng/L B-Natriuretic Peptide 148 H (<100) pg/mL Total Protein (6.5-8.0) g/dL Albumin (3.5-5.0) g/dL Urine Color Urine Appearance Urine pH (5.0-9.0) Ur Specific [place] (1.005-1.025) Urine Protein (Neg-Trace) mg/dL Urine Glucose (UA) (Negative) mg/dL Urine Ketones (Negative) mg/dL Urine Blood (Negative) Urine Nitrite (Negative) Ur Leukocyte Esterase (Negative) Urine RBC (0-2) /HPF Urine WBC (0-5) /HPF Ur Squamous Epith Cells (0-2) /HPF Urine Bacteria (None Seen) Hyaline Casts (0-2) /LPF Influenza Type A (PCR) (Negative) Influenza Type B (PCR) (Negative) RSV RNA Qual (PCR) (Negative) SARS-CoV-2 RNA (RT-PCR) (Negative) 06/26/23 06/26/23 06/26/23 Range/Units 03:59 04:32 05:11 WBC (4.8-10.8) X10*3/uL RBC (4.60-5.80) X10*6/uL Hgb (14.0-18.0) g/dl Hct (42.0-52.0) % MCV (80.0-98.0) fL MCH (27.0-33.0) pg MCHC (31.0-36.0) g/dl RDW (11.0-16.0) % Plt Count (160-400) X10*3/uL MPV (9.4-12.4) fL Immature Gran % (Auto) Neut % (Auto) Lymph % (Auto) [place] % (Auto) Eos % (Auto) Baso % (Auto) Lymph # (Auto) [place] # (Auto) Eos # (Auto) Baso # (Auto) Abs Immat Gran (auto) Absolute Neuts (auto) Absolute Nucleated RBC (0.0-0.012) X10*3/uL Nucleated RBC % (auto) (0.0-0.2) /100WBC Neutrophils % (Manual) (45-73) % Band Neutrophils % (3-5) % Lymphocytes % (Manual) (20-40) % Monocytes % (Manual) (2-11) % Abs Neuts (Manual) (2.0-8.3) X10*3/uL Lymphocytes # (Manual) (1.2-4.9) X10*3/uL Monocytes # (Manual) (0.1-1.2) X10*3/uL Toxic Vacuolation Platelet Estimate (NORMAL) Plt Morphology Comment RBC Morphology Polychromasia /OIF Spherocytes /OIF Mcdonald-[place] Bodies Acanthocytes (Spur) /OIF Rouleaux Schistocytes /OIF PT (11.1-13.3) SEC INR (0.9-1.1) VBG pH 7.44 H (7.32-7.43) VBG pCO2 36 mmHg VBG pO2 36 mmHg VBG HCO3 25 (22-26) mmol/L VBG O2 Saturation 59.0 % VBG Base Excess 1.5 mmol/L Sodium (135-145) mmol/L Potassium (3.3-5.1) mmol/L Chloride (96-108) mmol/L Carbon Dioxide (22-29) mmol/L Anion Gap (12-20) BUN (9-16) mg/dL Creatinine (0.5-1.4) mg/dL Estim Creat Clear Calc Estimated GFR Random Glucose (60-115) mg/dL Lactic Acid (0.5-2.0) mmol/L Lactic Acid F/U @ 2Hr (0.5-2.0) mmol/L Calcium (8.4-10.2) mg/dL Total Bilirubin (0.0-1.0) mg/dL AST (5-37) U/L ALT (0-40) U/L Alkaline Phosphatase (39-117) U/L Troponin I High Sens (<3.5-35.0) ng/L B-Natriuretic Peptide (<100) pg/mL Total Protein (6.5-8.0) g/dL Albumin (3.5-5.0) g/dL Urine Color Yellow Urine Appearance Clear Urine pH 6.5 (5.0-9.0) Ur Specific [place] 1.015 (1.005-1.025) Urine Protein Trace (Neg-Trace) mg/dL Urine Glucose (UA) 500 H (Negative) mg/dL Urine Ketones Negative (Negative) mg/dL Urine Blood Moderate (2+) H (Negative) Urine Nitrite Negative (Negative) Ur Leukocyte Esterase Small (1+) H (Negative) Urine RBC >20 H (0-2) /HPF Urine WBC 6-10 H (0-5) /HPF Ur Squamous Epith Cells 0-2 (0-2) /HPF Urine Bacteria None Seen (None Seen) Hyaline Casts 0-2 (0-2) /LPF Influenza Type A (PCR) NEGATIVE (Negative) Influenza Type B (PCR) NEGATIVE (Negative) RSV RNA Qual (PCR) NEGATIVE (Negative) SARS-CoV-2 RNA (RT-PCR) NEGATIVE (Negative) 06/26/23 Range/Units 06:34 WBC (4.8-10.8) X10*3/uL RBC (4.60-5.80) X10*6/uL Hgb (14.0-18.0) g/dl Hct (42.0-52.0) % MCV (80.0-98.0) fL MCH (27.0-33.0) pg MCHC (31.0-36.0) g/dl RDW (11.0-16.0) % Plt Count (160-400) X10*3/uL MPV (9.4-12.4) fL Immature Gran % (Auto) Neut % (Auto) Lymph % (Auto) [place] % (Auto) Eos % (Auto) Baso % (Auto) Lymph # (Auto) [place] # (Auto) Eos # (Auto) Baso # (Auto) Abs Immat Gran (auto) Absolute Neuts (auto) Absolute Nucleated RBC (0.0-0.012) X10*3/uL Nucleated RBC % (auto) (0.0-0.2) /100WBC Neutrophils % (Manual) (45-73) % Band Neutrophils % (3-5) % Lymphocytes % (Manual) (20-40) % Monocytes % (Manual) (2-11) % Abs Neuts (Manual) (2.0-8.3) X10*3/uL Lymphocytes # (Manual) (1.2-4.9) X10*3/uL Monocytes # (Manual) (0.1-1.2) X10*3/uL Toxic Vacuolation Platelet Estimate (NORMAL) Plt Morphology Comment RBC Morphology Polychromasia /OIF Spherocytes /OIF Mcdonald-[place] Bodies Acanthocytes (Spur) /OIF Rouleaux Schistocytes /OIF PT (11.1-13.3) SEC INR (0.9-1.1) VBG pH (7.32-7.43) VBG pCO2 mmHg VBG pO2 mmHg VBG HCO3 (22-26) mmol/L VBG O2 Saturation % VBG Base Excess mmol/L Sodium (135-145) mmol/L Potassium (3.3-5.1) mmol/L Chloride (96-108) mmol/L Carbon Dioxide (22-29) mmol/L Anion Gap (12-20) BUN (9-16) mg/dL Creatinine (0.5-1.4) mg/dL Estim Creat Clear Calc Estimated GFR Random Glucose (60-115) mg/dL Lactic Acid (0.5-2.0) mmol/L Lactic Acid F/U @ 2Hr 3.0 H* (0.5-2.0) mmol/L Calcium (8.4-10.2) mg/dL Total Bilirubin (0.0-1.0) mg/dL AST (5-37) U/L ALT (0-40) U/L Alkaline Phosphatase (39-117) U/L Troponin I High Sens (<3.5-35.0) ng/L B-Natriuretic Peptide (<100) pg/mL Total Protein (6.5-8.0) g/dL Albumin (3.5-5.0) g/dL Urine Color Urine Appearance Urine pH (5.0-9.0) Ur Specific [place] (1.005-1.025) Urine Protein (Neg-Trace) mg/dL Urine Glucose (UA) (Negative) mg/dL Urine Ketones (Negative) mg/dL Urine Blood (Negative) Urine Nitrite (Negative) Ur Leukocyte Esterase (Negative) Urine RBC (0-2) /HPF Urine WBC (0-5) /HPF Ur Squamous Epith Cells (0-2) /HPF Urine Bacteria (None Seen) Hyaline Casts (0-2) /LPF Influenza Type A (PCR) (Negative) Influenza Type B (PCR) (Negative) RSV RNA Qual (PCR) (Negative) SARS-CoV-2 RNA (RT-PCR) (Negative) Independent Interpretation I performed an independent interpretation of an: EKG Interpretation: Sinus tachycardia, HR -112, no STEMI, NH/QRS/QTC is within normal limits. Radiology Impression Discussion of test interpretation with radiology: I have reviewed the radiologist's reading. Radiologist Impression: Please see the discussion above regarding the chest x-ray. External Record Review External record reviewed: Outpatient record, Prior outpatient labs and Prior outpatient radiology Chronic Conditions Patient?s care impacted by: Diabetes Critical Care Time Critical Care Time Critical Care Time: Yes Total Critical Care Time: 45 Attestation: I personally attest to this time spent taking care of the patient. Discharge Plan Discharge Clinical Impression: Sepsis, Cellulitis, Acute hypoxemic respiratory failure, DAVID (acute kidney injury), CHF exacerbation Patient Disposition: Admitted As Inpatient
[2023-06-26 04:05] LABS: VBG Base Excess 1.5 mmol/L; VBG HCO3 25 mmol/L (22-26); VBG pCO2 36 mmHg; VBG pH 7.44 (7.32-7.43); VBG pO2 36 mmHg
[2023-06-26 04:07] LABS: Venous Blood Gas Refer to POC result
[2023-06-26 04:08] LABS: INTERNATIONAL NORM RATIO 1.1 (0.9-1.1); Prothrombin Time 13.1 SEC (11.1-13.3)
[2023-06-26] MEDS: Piperacillin Sodium/Tazobactam 3.375 GM in 0.9 % Sodium Chloride 50 ML IV ×2 (04:15→14:16)
[2023-06-26] MEDS: Acetaminophen Supp 650 MG SUPP.RECT PR ×3 (04:15→15:57)
[2023-06-26 04:17] LABS: Alanine Aminotransferase 14 U/L (0-40); Albumin Level 3.8 g/dL (3.5-5.0); Alkaline Phosphatase 100 U/L (39-117); Anion Gap 15 (12-20); Aspartate Amino Transferase 22 U/L (5-37); Bilirubin Total 0.6 mg/dL (0.0-1.0); Blood Urea Nitrogen 23 mg/dL (9-16); Calcium 9.9 mg/dL (8.4-10.2); Carbon Dioxide 24 mmol/L (22-29); Chloride 102 mmol/L (96-108); Creatinine Clr Calc Pharmacy 37.7; Estimated Glomerular Filt Rate 42; Glucose Random 239 mg/dL (60-115); Potassium 4.1 mmol/L (3.3-5.1); Sodium 137 mmol/L (135-145); Total Protein 7.9 g/dL (6.5-8.0)
[2023-06-26 04:19] LABS: Lactic Acid 2.8 mmol/L (0.5-2.0)
[2023-06-26 04:20] LABS: Neutrophils Percent Manual 71 % (45-73)
[2023-06-26 04:21] LABS: B Type Natriuretic Peptide 148 pg/mL (<100); Band Neutrophils Percent 11 % (3-5); Lymphocytes Absolute Manual 3.4 X10*3/uL (1.2-4.9); Lymphocytes Percent Manual 10 % (20-40); Monocytes Absolute Manual 2.7 X10*3/uL (0.1-1.2); Monocytes Percent Manual 8 % (2-11); Neutrophils Absolute Manual 27.7 X10*3/uL (2.0-8.3)
[2023-06-26 04:22] LABS: Platelet Estimate NORMAL (NORMAL); Platelet Morphology Comment NORMAL; RBC Morphology NOTED
[2023-06-26 04:23] LABS: Acanthocytes 2+ (3-5) /OIF; Schistocytes 1+ (0-2) /OIF
[2023-06-26 04:24] LABS: Howell Jolly Bodies PRESENT; Rouleau PRESENT; Spherocytes 1+ (0-2) /OIF; Toxic Vacuolation PRESENT
[2023-06-26 04:25] LABS: Polychromasia 1+ (0-2) /OIF
[2023-06-26 04:27] LABS: Troponin-I High Sensitivity 35.8 ng/L (<3.5-35.0)
[2023-06-26 04:45] LABS: Appearance Urine Clear; Color Urine Yellow; Glucose Urine UA 500 mg/dL (Negative); Leukocyte Esterase Urine Small (1+) (Negative); Nitrite Urine Negative (Negative); PH 6.5 (5.0-9.0); Specific Gravity - Urine 1.015 (1.005-1.025); UMIC TRIGGER UACC YES; Urine Blood Moderate (2+) (Negative); Urine Ketones Negative (Negative); Urine Protein Trace mg/dL (Neg-Trace)
[2023-06-26 04:52] LABS: Bacteria Urine None Seen (None Seen); Hyaline Casts Urine 0-2 /LPF (0-2); RBC Urine >20 /HPF (0-2); Squamous Epithelial Cell Urine 0-2 /HPF (0-2); UACC Culture Trigger YES
[2023-06-26 05:53] LABS: Influenza A PCR NEGATIVE (Negative); Influenza B PCR NEGATIVE (Negative); Resp Syncy Virus RNA Qual PCR NEGATIVE (Negative); SARS COV2 PCR INHOUSE NEGATIVE (Negative)
[2023-06-26 05:59] LABS: Reflex Lactate? Lactic Acid Added
[2023-06-26] MEDS: Furosemide 100 MG/10 ML VIAL 60 MG IVPUSH (07:05)
[2023-06-26] MEDS: 0.9 % Sodium Chloride 500 ML 999 ML IV (07:12)
--- NOTE | 2023-06-26 07:12 | PC.NURSE ---
patient resting in bed, at bedside. patients states he normal is responsive to questions, patient opens eyes but will not reply. 500 ML NS Bolus running, patient appears to be in no distress on oxymask 5L
[2023-06-26] MEDS: vancomycin/NS 2,000 MG/500 ML PLAST..BAG 250 MG IV (07:30)
[2023-06-26 08:25] LABS: Troponin-I High Sensitivity 61.8 ng/L (<3.5-35.0)
[2023-06-26 08:39] LABS: Reflex Lactate? 2 Y
[2023-06-26 08:56] LABS: MRSA Nasal PCR NEGATIVE (Negative); SA Nasal PCR POSITIVE (Negative)
--- NOTE | 2023-06-26 09:05 | PC.NURSE ---
patient resting in bed, appears to be in no distress. Lopez cath in palce draining 600ml of yellow/clear urine. VSS
[2023-06-26 10:18] LABS: ~Lactic Acid-LAB USE ONLY 3.6 mmol/L (0.5-2.0)
--- NOTE | 2023-06-26 10:49 | PHA.MEDREC ---
Pharmacy Consult ? Medication Reconciliation Pharmacy has completed the medication reconciliation. PT HAD LIST FROM ID. PER MOST UP TO DATE LIST ELIZABETH
--- NOTE | 2023-06-26 12:45 | PC.NURSE ---
patient resting in bed, opens eyes when you speak to him, patient has been becoming more responsive and speaking. temp sensing escobedo in place, draining 900 ml of clear/yellow urine. VSS
--- NOTE | 2023-06-26 14:57 | P.HPHOSP_ITS ---
History of Present Illness Date of Service: 06/26/23 Attending physician on admission: John Vogt Chief Complaint: Weakness, fevers 88-year-old male with history of COPD with chronic hypoxemic respiratory failure non compliant with supplemental O2, unspecified dementia, insulin-dependent type 2 diabetes, history of pulmonary embolism anticoagulated with Eliquis, and unspecified congestive heart failure presented to the ED via EMS earlier this morning for evaluation. The patient is somnolent but arousable but is not a good historian on exam. History obtained from ED provider/no and who is at bedside. His reports that around 22:00 last night patient was noted to be very weak with subjective fever and chills and ?out of it?. In the middle the night, she awoke and noted his feet or off the bed he was sliding off the side of the bed to the floor. She called EMS and upon arrival, patient was noted to be satting at 76% on room air and was in obvious respiratory distress. His reports he has 1-2 L of supplemental O2 available to him at baseline but typically does not use this. She does report for several weeks has had a nonproductive cough and has shortness of breath chronically but has noted some increased chest congestion. He states they do to check his oxygen level every morning and ranges between 88-95%. On arrival, patient is febrile to 103.8, tachycardic to 115, tachypneic to 37. Given increased work of breathing, he was placed on BiPAP with improvement in work of breathing though still mildly tachypneic to 25 at on admission. Fever treated with Tylenol and has been weaned to OxyMask now maintaining oximetry 90 2-96% on 4 L supplemental O2. No hypotension. He has a significant leukocytosis of 33.8 with 11% bandemia. Creatinine 1.58, BUN 23, electrolyte levels normal. Initial lactic acid 2.8, repeat 3.0, for hr repeat 3.6. Initial troponin 35.8, repeat 61.8. BNP 148. Urinalysis with 1+ leukocytes, 2+ blood, positive glucose, positive urinary sediment, negative bacteria. Nasal screen positive for MSSA. Negative for influenza, RSV, COVID-19. Chest x-ray shows low lung volumes with chronic diffuse increased markings. Dense consolidation at left lung base seen previously is likely chronic versus recurrent infiltrate. CT chest and abd/pelvis shows 1.5 cm subpleural pulmonary nodule left upper lobe, malignancy is within the differential. There is also mild emphysema with subpleural reticular changes suggestive of interstitial lung disease, right thyroid nodule, and ventral abdominal hernia which contains a loop of nonobstructive transverse colon. In the ED has received IV Zosyn, IV vancomycin, IVF, NM acetaminophen, and 60 mg IV furosemide. Review of Systems Review of Systems: Yes Unobtainable due to mental condition and Unobtainable due to mental status [facility] Medical History CHF (congestive heart failure) Chronic hypoxemic respiratory failure COPD (chronic obstructive pulmonary disease) Dementia Diabetes Pulmonary embolism Family History Other Diabetes Social History Household Members: Spouse Housing: House Do you presently have visiting nurse or other home services: No Alcohol intake: never Patient Tobacco Use Status: Never used Tobacco Smoked in Last 30 Days: No Use of substances other than those prescribed or required for medical reasons: No Advance Directives: Yes Advance Directives on File: Yes Advance Directives Date on File: 03/28/23 service: Yes Current occupational status: retired Meds Allergies Allergy/AdvReac Type Severity Reaction Status Date / Time codeine [Codeine] Allergy Unknown UNKNOWN Verified 06/26/23 06:40 tetanus toxoid, adsorbed Allergy Unknown UNKNOWN Verified 06/26/23 06:40 [Tetanus Toxoid,Adsorbed] Active Medications: Current Medications Acetaminophen (Acetaminophen Supp 650 Mg Supp.Rect) 650 mg NM Q6H PRN PRN Reason: Pain, Mild, fever Apixaban (Apixaban 2.5 Mg Tablet) 2.5 mg PO BID RE Aspirin (Aspirin Enteric Coated 81 Mg Tablet.Dr) 81 mg PO DAILY RE Docusate Sodium (Docusate Sodium 100 Mg Capsule) 100 mg PO DAILY PRN PRN Reason: Constipation Sodium Chloride (Ns) 1,000 mls @ 75 mls/hr IVCONT .[id number] RE Piperacillin Sod/Tazobactam (Sod 4.5 gm/ Sodium Chloride) 100 mls @ 200 mls/hr IV Q8H RE Insulin Glargine (Insulin Glargine,Hum.Rec.Anlog 100 Unit/Ml 10 Ml Vial) 15 unit SUBCUT DAILY COUNT INCLUDES THE [facility] Insulin Glargine (Insulin Glargine,Hum.Rec.Anlog 100 Unit/Ml 10 Ml Vial) 15 unit SUBCUT BEDTIME COUNT INCLUDES THE [facility] Multivitamins/Vitamin C (Multivitamin Tablet) 1 tab PO DAILY COUNT INCLUDES THE [facility] Non-Formulary Medication (Fluticasone Propion-Salmeterol [Advair Diskus]) 1 inhalation INHALE BID COUNT INCLUDES THE [facility] Non-Formulary Medication (Lidocaine) 1 patch TOPICAL DAILY COUNT INCLUDES THE [facility] Non-Formulary Medication ([place]-3 Fatty Acids-Fish Oil [Fish Oil]) 2 cap PO DAILY COUNT INCLUDES THE [facility] Ondansetron HCl (Ondansetron Hcl 4 Mg/2 Ml Vial) 4 mg IVPUSH Q8H PRN PRN Reason: Nausea and Vomiting Pravastatin Sodium (Pravastatin Sodium 40 Mg Tablet) 40 mg PO BEDTIME RE Quetiapine Fumarate (Quetiapine Fumarate 25 Mg Tablet) 12.5 mg PO BEDTIME COUNT INCLUDES THE [facility] Sodium Chloride (0.9 % Sodium Chloride Flush 3 Ml Syringe) 3 ml IVFLUSH QSHIFT COUNT INCLUDES THE [facility] Tiotropium [place] (Tiotropium [place] 2.5 Mcg Inhaler) 2 puff INHALE DAILY COUNT INCLUDES THE [facility] Home Medications Medication Instructions Recorded Confirmed Last Taken Type apixaban 5 mg tablet 2.5 mg PO BID 01/27/23 06/26/23 Unknown History flash glucose sensor (FreeStyle #1 ea 01/27/23 06/26/23 Unknown History Reva 14 Day Sensor kit) furosemide 40 mg tablet 40 mg PO DAILY 01/27/23 06/26/23 Unknown History glucose 4 gram chewable tablet 4 g PO Q15M PRN Hypoglycemia 01/27/23 06/26/23 Unknown History (Dex4 Glucose) insulin aspart U-100 100 unit/mL 17 unit subcut DAILY@1700 01/27/23 06/26/23 Unknown History (3 mL) subcutaneous pen (Novolog FlexPen U-100 Insulin aspart) insulin glargine 100 unit/mL 15 unit subcut DAILY 01/27/23 06/26/23 Unknown History subcutaneous solution pravastatin 40 mg tablet 40 mg PO BEDTIME 01/27/23 06/26/23 Unknown History quetiapine 25 mg tablet 12.5 mg PO BEDTIME 01/27/23 06/26/23 Unknown History insulin aspart U-100 100 unit/mL 9 unit subcut DAILY@1130 03/22/23 06/26/23 Unknown History (3 mL) subcutaneous pen (Novolog FlexPen U-100 Insulin aspart) insulin aspart U-100 100 unit/mL 13 unit subcut DAILY@0730 03/22/23 06/26/23 Unknown History (3 mL) subcutaneous pen (Novolog FlexPen U-100 Insulin aspart) insulin glargine 100 unit/mL 20 unit subcut BEDTIME 03/22/23 06/26/23 Unknown History subcutaneous solution (Lantus U-100 Insulin) multivitamin 1 tab PO DAILY 03/22/23 06/26/23 Unknown History omega-3 fatty acids-fish oil 360 2 cap PO DAILY 03/22/23 06/26/23 Unknown Histo ry mg-1,200 mg capsule (Fish Oil) tiotropium bromide 2.5 2 puff inhalation DAILY 03/22/23 06/26/23 Unknown History mcg/actuation mist for inhalation (Spiriva Respimat) aspirin 81 mg tablet,delayed 81 mg PO DAILY 06/26/23 06/26/23 Unknown History release fluticasone 500 mcg-salmeterol 50 1 inh inhalation BID 06/26/23 06/26/23 Unknown History mcg/dose blistr powdr for inhalation (Advair Diskus) lidocaine 5 % topical patch 1 patch topical DAILY 06/26/23 06/26/23 Unknown History Physical Exam Vital Signs and Narrative: Vital Signs: Last Vital Signs Temp 100.4 F 06/26/23 14:17 Pulse 93 06/26/23 14:17 Resp 25 H 06/26/23 14:17 BP 125/53 L 06/26/23 14:17 Pulse Ox 96 06/26/23 14:17 O2 Del Method Oxymask 06/26/23 14:17 O2 Flow Rate 4 06/26/23 14:17 BMI result Body Mass Index 33.5 Constitutional - somnolent but arousable, No apparent distress Eyes - PERRLA, EOMI Cardiovascular - S1S2, RRR, 2+ ble edema Respiratory - Normal lung expansion, Normal respiratory effort, No respiratory distress on 4 L supplemental O2 via OxyMask, diminished lung sounds with crackles auscultated BLL Gastrointestinal - NT / ND; +BS; No rebound or guarding Extremities - no calf tenderness bilaterally, no swelling Musculoskeletal - Normal inspection, normal ROM Skin - Warm/Dry. Mild erythema and warmth medial aspect L lower leg without demarcation Neurological - somnolent but arousable, answering only simple questions but following commands Psychological - Appropriate affect Results Labs 06/26/23 03:53 06/26/23 03:53 Labs: Laboratory Results - last 24 hr 06/26/23 06/26/23 06/26/23 03:53 03:53 03:53 MCV 85.2 MCH 27.3 MCHC 32.0 RDW 16.0 Plt Count 368 D MPV 10.1 Immature Gran % (Auto) Cancelled Neut % (Auto) Cancelled Lymph % (Auto) Cancelled Winston % (Auto) Cancelled Eos % (Auto) Cancelled Baso % (Auto) Cancelled Lymph # (Auto) Cancelled Winston # (Auto) Cancelled Eos # (Auto) Cancelled Baso # (Auto) Cancelled Abs Immat Gran (auto) Cancelled Absolute Neuts (auto) Cancelled Absolute Nucleated RBC 0.000 Nucleated RBC % (auto) 0.0 Neutrophils % (Manual) 71 Band Neutrophils % 11 H Lymphocytes % (Manual) 10 L Monocytes % (Manual) 8 Abs Neuts (Manual) 27.7 H Lymphocytes # (Manual) 3.4 Monocytes # (Manual) 2.7 H Toxic Vacuolation PRESENT Platelet Estimate NORMAL Plt Morphology Comment NORMAL RBC Morphology NOTED Polychromasia 1+ (0-2) Spherocytes 1+ (0-2) [place] Bodies PRESENT Acanthocytes (Spur) 2+ (3-5) Rouleaux PRESENT Schistocytes 1+ (0-2) PT 13.1 INR 1.1 VBG pH VBG pCO2 VBG pO2 VBG HCO3 VBG O2 Saturation VBG Base Excess Anion Gap 15 Estim Creat Clear Calc 37.7 Estimated GFR 42 Random Glucose 239 H Lactic Acid Lactic Acid F/U @ 2Hr Lactic Acid F/U @ 4Hr Calcium 9.9 Total Bilirubin 0.6 AST 22 ALT 14 Alkaline Phosphatase 100 B-Natriuretic Peptide Total Protein 7.9 Albumin 3.8 Urine Color Urine Appearance Urine pH Ur Specific [place] Urine Protein Urine Glucose (UA) Urine Ketones Urine Blood Urine Nitrite Ur Leukocyte Esterase Urine RBC Urine WBC Ur Squamous Epith Cells Urine Bacteria Hyaline Casts Nasal Screen MRSA (PCR) Nasal S. aureus Screen Nasal MRSA/S.aureus Interp Influenza Type A (PCR) Influenza Type B (PCR) RSV RNA Qual (PCR) SARS-CoV-2 RNA (RT-PCR) 06/26/23 06/26/23 06/26/23 03:53 03:53 03:59 MCV MCH MCHC RDW Plt Count MPV Immature Gran % (Auto) Neut % (Auto) Lymph % (Auto) [place] % (Auto) Eos % (Auto) Baso % (Auto) Lymph # (Auto) Winston # (Auto) Eos # (Auto) Baso # (Auto) Abs Immat Gran (auto) Absolute Neuts (auto) Absolute Nucleated RBC Nucleated RBC % (auto) Neutrophils % (Manual) Band Neutrophils % Lymphocytes % (Manual) Monocytes % (Manual) Abs Neuts (Manual) Lymphocytes # (Manual) Monocytes # (Manual) Toxic Vacuolation Platelet Estimate Plt Morphology Comment RBC Morphology Polychromasia Spherocytes [place] Bodies Acanthocytes (Spur) Rouleaux Schistocytes PT INR VBG pH 7.44 H VBG pCO2 36 VBG pO2 36 VBG HCO3 25 VBG O2 Saturation 59.0 VBG Base Excess 1.5 Anion Gap Estim Creat Clear Calc Estimated GFR Random Glucose Lactic Acid 2.8 H* Lactic Acid F/U @ 2Hr Lactic Acid F/U @ 4Hr Calcium Total Bilirubin AST ALT Alkaline Phosphatase B-Natriuretic Peptide 148 H Total Protein Albumin Urine Color Urine Appearance Urine pH Ur Specific [place] Urine Protein Urine Glucose (UA) Urine Ketones Urine Blood Urine Nitrite Ur Leukocyte Esterase Urine RBC Urine WBC Ur Squamous Epith Cells Urine Bacteria Hyaline Casts Nasal Screen MRSA (PCR) Nasal S. aureus Screen Nasal MRSA/S.aureus Interp Influenza Type A (PCR) Influenza Type B (PCR) RSV RNA Qual (PCR) SARS-CoV-2 RNA (RT-PCR) 06/26/23 06/26/23 06/26/23 04:32 05:11 06:34 MCV MCH MCHC RDW Plt Count MPV Immature Gran % (Auto) Neut % (Auto) Lymph % (Auto) [place] % (Auto) Eos % (Auto) Baso % (Auto) Lymph # (Auto) Winston # (Auto) Eos # (Auto) Baso # (Auto) Abs Immat Gran (auto) Absolute Neuts (auto) Absolute Nucleated RBC Nucleated RBC % (auto) Neutrophils % (Manual) Band Neutrophils % Lymphocytes % (Manual) Monocytes % (Manual) Abs Neuts (Manual) Lymphocytes # (Manual) Monocytes # (Manual) Toxic Vacuolation Platelet Estimate Plt Morphology Comment RBC Morphology Polychromasia Spherocytes [place] Bodies Acanthocytes (Spur) Rouleaux Schistocytes PT INR VBG pH VBG pCO2 VBG pO2 VBG HCO3 VBG O2 Saturation VBG Base Excess Anion Gap Estim Creat Clear Calc Estimated GFR Random Glucose Lactic Acid Lactic Acid F/U @ 2Hr 3.0 H* Lactic Acid F/U @ 4Hr Calcium Total Bilirubin AST ALT Alkaline Phosphatase B-Natriuretic Peptide Total Protein Albumin Urine Color Yellow Urine Appearance Clear Urine pH 6.5 Ur Specific [place] 1.015 Urine Protein Trace Urine Glucose (UA) 500 H Urine Ketones Negative Urine Blood Moderate (2+) H Urine Nitrite Negative Ur Leukocyte Esterase Small (1+) H Urine RBC >20 H Urine WBC 6-10 H Ur Squamous Epith Cells 0-2 Urine Bacteria None Seen Hyaline Casts 0-2 Nasal Screen MRSA (PCR) Nasal S. aureus Screen Nasal MRSA/S.aureus Interp Influenza Type A (PCR) NEGATIVE Influenza Type B (PCR) NEGATIVE RSV RNA Qual (PCR) NEGATIVE SARS-CoV-2 RNA (RT-PCR) NEGATIVE 06/26/23 06/26/23 07:19 09:53 MCV MCH MCHC RDW Plt Count MPV Immature Gran % (Auto) Neut % (Auto) Lymph % (Auto) [place] % (Auto) Eos % (Auto) Baso % (Auto) Lymph # (Auto) [place] # (Auto) Eos # (Auto) Baso # (Auto) Abs Immat Gran (auto) Absolute Neuts (auto) Absolute Nucleated RBC Nucleated RBC % (auto) Neutrophils % (Manual) Band Neutrophils % Lymphocytes % (Manual) Monocytes % (Manual) Abs Neuts (Manual) Lymphocytes # (Manual) Monocytes # (Manual) Toxic Vacuolation Platelet Estimate Plt Morphology Comment RBC Morphology Polychromasia Spherocytes [place] Bodies Acanthocytes (Spur) Rouleaux Schistocytes PT INR VBG pH VBG pCO2 VBG pO2 VBG HCO3 VBG O2 Saturation VBG Base Excess Anion Gap Estim Creat Clear Calc Estimated GFR Random Glucose Lactic Acid Lactic Acid F/U @ 2Hr Lactic Acid F/U @ 4Hr 3.6 H* Calcium Total Bilirubin AST ALT Alkaline Phosphatase B-Natriuretic Peptide Total Protein Albumin Urine Color Urine Appearance Urine pH Ur Specific [place] Urine Protein Urine Glucose (UA) Urine Ketones Urine Blood Urine Nitrite Ur Leukocyte Esterase Urine RBC Urine WBC Ur Squamous Epith Cells Urine Bacteria Hyaline Casts Nasal Screen MRSA (PCR) NEGATIVE Nasal S. aureus Screen POSITIVE A Nasal MRSA/S.aureus Interp SEE NOTE Influenza Type A (PCR) Influenza Type B (PCR) RSV RNA Qual (PCR) SARS-CoV-2 RNA (RT-PCR) Imaging Radiologist's Impressions: Impressions Chest X-Ray 06/26/23 03:43 IMPRESSION: 1. Low lung volumes limits evaluation. 2. Chronic diffuse increased markings. 3. Dense consolidative change at the left lung base was seen previously and is likely chronic versus recurrent infiltrate. Abdomen/Pelvis CT 06/26/23 06:26 IMPRESSION: 1. 1.5 cm subpleural pulmonary nodule of the left upper lobe. Malignancy is within the differential. 2. Mild emphysema with subpleural reticular changes suggesting interstitial lung disease. 3. Right thyroid nodule. 4. Ventral abdominal hernia which contains a loop of nonobstructed transverse colon. Chest CT 06/26/23 06:26 IMPRESSION: 1. 1.5 cm subpleural pulmonary nodule of the left upper lobe. Malignancy is within the differential. 2. Mild emphysema with subpleural reticular changes suggesting interstitial lung disease. 3. Right thyroid nodule. 4. Ventral abdominal hernia which contains a loop of nonobstructed transverse colon. Assessment and Plan (1) Recurrent pneumonia: Status: Acute (2) Sepsis: Status: Acute (3) Cellulitis: Status: Acute (4) Acute hypoxemic respiratory failure: Status: Acute (5) DAVID (acute kidney injury): Status: Acute Plan 88-year-old male with history of COPD with chronic hypoxemic respiratory failure non compliant with supplemental O2, unspecified dementia, insulin-dependent type 2 diabetes, history of pulmonary embolism anticoagulated with Eliquis, and unspecified congestive heart failure admitted for pneumonia with severe sepsis and acute on chronic hypoxemic respiratory failure. #Acute on chronic hypoxemic respiratory failure -secondary to pneumonia -Weaned from bipap to oxymask in ED -VBG reassuring -continue supplemental O2 to maintain oximetry 90-92% #Pneumonia with severe sepsis- cannot rule out aspiration given encephalopathy -leukocytosis 33 with 11% bandemia, tachycardia, tachypnea, fevers, lactic acid osis (repeat lactic acid pending). No hypotension -LLL infiltrate (noted to be recurrent) on CXR, but ?bilateral infiltrate on chest CT -IV vanco and zosyn (Nasal SA positive, MRSA cannot be excluded) -strep pneumo Legionella antigen, sputum culture pending -keep NPO for now given possibility of aspiration. CHEMICAL LABORATORY SCIENTIST evaluation pending. Continue gentle IVF -follow CBC, blood cultures -admit to telemetry # acute metabolic encephalopathy -secondary to infection -continue treatment as above -monitor mentation # acute cellulitis left lower extremity -IV vanco and Zosyn as above # acute kidney injury -? Related to infection -urine studies pending -gentle IVF -nephrology consult if no improvement #Elevated troponins -initial troponin 35.8, repeat 61.8 -likely demand due to hypoxemia -CXR was without evidence of ischemia -monitor on telemetry # COPD -no acute exacerbation -continue maintenance inhalers, albuterol p.r.n. # insulin-dependent type 2 diabetes -POC glucose -NPO for now, advance to diabetic diet -hold Humalog at this time given NPO status, continue dose adjusted basal insulin # history of pulmonary embolism -continue Eliquis # unspecified CHF -no acute exacerbation -BNP 148, clinically not fluid overloaded -continue po lasix # unspecified dementia without behavioral disturbance -acute metabolic encephalopathy as above -monitor mentation DVT prophylaxis-Eliquis DNR/DNI Patient requires inpatient stay at least 2 midnights for management of pneumonia with severe sepsis with acute hypoxemic respiratory failure and acute metabolic encephalopathy requiring IV antibiotics, supplemental O2, and close monitoring to prevent decompensation Time Spent With Patient Time: Total time managing care of this patient today ____ minutes. Quality Stroke Does the patient have a stroke diagnosis?: No VTE Prior VTE?: Yes VTE Risk Level:: Medical - moderate - high VTE Device Contraindication: Treatment Not Indicated VTE Drug Contraindication: N/A - Med Ordered
[2023-06-26 15:57] LABS: Creatinine Urine 78.28 mg/dL
[2023-06-26] MEDS: 0.9 % Sodium Chloride 1,000 ML 75 ML IVCONT (15:57)
[2023-06-26] MEDS: Lidocaine 4 % Patch ADH..PATCH 1 PATCH TRANSDERMA (16:05)
[2023-06-26 16:25] LABS: Glucose, Whole Blood 304 mg/dL (60-115)
[2023-06-26] MEDS: Enoxaparin Sodium 100 MG/ML SYRINGE SUBCUT (18:20)
[2023-06-26 20:08] LABS: Glucose, Whole Blood 321 mg/dL (60-115)
[2023-06-26] MEDS: Insulin Glargine,Hum.rec.anlog 100 UNIT/ML 10 ML VIAL 15 UNIT SUBCUT (20:29)
[2023-06-26] MEDS: Pravastatin Sodium 40 MG TABLET PO (20:29)
[2023-06-26] MEDS: QUEtiapine Fumarate 25 MG TABLET 12.5 MG PO (20:29)
[2023-06-26 20:49] LABS: Lactic Acid 1.9 mmol/L (0.5-2.0)
[2023-06-26] MEDS: Piperacillin Sodium/Tazobactam 4.5 GM in 0.9 % Sodium Chloride 100 ML IV (21:51)
[2023-06-27] VITALS (7 sets, daily range): BP systolic 122–159; BP diastolic 59–71; PULSE 74–84; RESP 15–20; TEMP 36.6–37.4; O2SAT 94–97
[2023-06-27] MEDS: 0.9 % Sodium Chloride 1,000 ML 75 ML IVCONT (05:23)
[2023-06-27] MEDS: Enoxaparin Sodium 100 MG/ML SYRINGE SUBCUT ×2 (05:24→16:45)
[2023-06-27] MEDS: Piperacillin Sodium/Tazobactam 4.5 GM in 0.9 % Sodium Chloride 100 ML IV ×3 (05:25→23:06)
[2023-06-27 05:46] LABS: MANUAL DIFF FLAG NO
[2023-06-27 05:51] LABS: Basophils Absolute Auto 0.1 X10*3/uL (0.0-0.2); Basophils Percent Auto 0.5 % (0-2); Eosinophils Absolute Auto 0.1 X10*3/uL (0.0-0.4); Eosinophils Percent Auto 0.3 % (0-4); Hematocrit 32.3 % (42.0-52.0); Hemoglobin 10.2 g/dl (14.0-18.0); Imm Gran Abs Auto 0.16 X10*3/uL (0.00-0.03); Imm Gran Pct Auto 0.7 % (0.0-0.4); Lymphocytes Absolute Auto 3.1 X10*3/uL (1.2-4.9); Lymphocytes Percent Auto 13.4 % (20-40); Mean Corpuscular HGB Conc 31.6 g/dl (31.0-36.0); Mean Corpuscular Hemoglobin 27.1 pg (27.0-33.0); Mean Corpuscular Volume 85.7 fL (80.0-98.0); Mean Platelet Volume 10.5 fL (9.4-12.4); Monocytes Percent Auto 4.4 % (2-11); Neutrophils Absolute Auto 18.3 x10*3/uL (2.0-8.3); Neutrophils Percent Auto 80.7 % (45-73); Platelet Count 318 X10*3/uL (160-400); Red Blood Count 3.77 X10*6/uL (4.60-5.80); Red Cell Distribution Width 16.5 % (11.0-16.0); White Blood Count 22.7 X10*3/uL (4.8-10.8)
[2023-06-27 06:06] LABS: Anion Gap 12 (12-20); Blood Urea Nitrogen 22 mg/dL (9-16); Calcium 9.2 mg/dL (8.4-10.2); Carbon Dioxide 25 mmol/L (22-29); Chloride 107 mmol/L (96-108); Creatinine Clr Calc Pharmacy 46.9; Estimated Glomerular Filt Rate 54; Glucose Random 252 mg/dL (60-115); Potassium 3.7 mmol/L (3.3-5.1); Sodium 140 mmol/L (135-145)
[2023-06-27] MEDS: vancomycin HCL 1,000 MG in 0.9 % Sodium Chloride 250 ML 270 MG IV (07:45)
[2023-06-27] MEDS: Lidocaine 4 % Patch ADH..PATCH 1 PATCH TRANSDERMA (07:49)
[2023-06-27 07:58] LABS: Glucose, Whole Blood 266 mg/dL (60-115)
[2023-06-27 08:29] LABS: Adenovirus PCR Not Detected (Not Detect.); Bordetella parapertussis PCR Not Detected (Not Detect.); Bordetella pertussis PCR Not Detected (Not Detect.); Chlamydia pneumoniae PCR Not Detected (Not Detect.); Coronavirus 229E PCR Not Detected (Not Detect.); Coronavirus HKU1 PCR Not Detected (Not Detect.); Coronavirus NL63 PCR Not Detected (Not Detect.); Coronavirus OC43 PCR Not Detected (Not Detect.); Human metapneumovirus PCR Not Detected (Not Detect.); Influenza A PCR Not Detected (Not Detect.); Influenza B PCR Not Detected (Not Detect.); Mycoplasma pneumoniae PCR Not Detected (Not Detect.); Parainfluenza 1 PCR Not Detected (Not Detect.); Parainfluenza 2 PCR Not Detected (Not Detect.); Parainfluenza 3 PCR Not Detected (Not Detect.); Parainfluenza 4 PCR Not Detected (Not Detect.); RSV PCR Not Detected (Not Detect.); Rhino/Enterovirus PCR Not Detected (Not Detect.); SARS-CoV-2 PCR Not Detected (Not Detect.)
--- NOTE | 2023-06-27 09:02 | MHC.CM.PN ---
Patient has a diagnosis of Dementia; CM spoke with /HCP/Liliana @ [phone] and addressed IMM with her (original will be mailed certified letter to Liliana and a copy has been placed on the chart). Patient lives in a house with his and he has a walker but mostly moves around the house in a w/c. Patient has home O2 from [employer] and he just completed 8 weeks of home care with [facility]; home/new vna vs str pending PT eval(2 assist) is the tentative plan. CM has initiated and will follow for dc planning. PCP is /[facility]WR[facility] ASSISTANT Lexy Naylor.Patient's Son may provide transportation if dc'd to home.
--- NOTE | 2023-06-27 11:22 | MHC.SL.SWA ---
Speech Pathologist Impression: Oropharyngeal dysphagia Risk of Aspiration Due to: History of Pneumonia Reduced Cognition Dysphasia Diet Status: UPGRADE Liquid Consistency and Strategies for Safe Swallow: Liquid Intake Recommendation: Thin Liquid Intake Strategies: Small Sips No Straws Solid Food Consistency: Dietary Recommendations: Grnd/Mech Altered (NDD2) Additional Modifications to Solid Foods: Moisten foods in sauce/gravy Oral Medication Intake: Crushed with Puree Please contact the pharmacy regarding appropriate crushable or liquid drug formulations that are available whenever modified delivery is recommended. Compensatory Strategies and Precautions to be Taken for Safe Swallow: Sitting Upright (90 deg) No Straw Liquids from Cup Liquids from Spoon Alternate Liquids/Solids Oral Check Avoid Specific Foods Supervision While Eating and Drinking for Safe Swallow: Total Supervision (1:1) Foods to Avoid: Avoid dry, sticky, tough to chew foods Swallowing Recommended Treatments: Compens. Strategy Educat. Recommendation for Speech: Outpatient Speech Therapy Inpatient Speech Therapy Comment: Recommend UPGRADE to GROUND/MECH ALTERED solids (NDD2), THIN liquids (NO STRAWS), pills WHOLE/CRUSHED in PUREE. Recommend full supervision to monitor for s/s aspiration and toleration of diet and provide assistance w/ managing PO and oxymask. Recommend oxymask is removed only temporarily for bites/sips then replaced on patient's face. RN notified on floor. Recommendations on whiteboard. RN, RD, MD notified of recommendations via [employer]. SUPERVISOR [employer] to continue to follow to alter diet recommendations if warranted. International First Officer Clinican/Clinical Fellow: No Supervisory Statement: I have reviewed and agree with the student/clinical fellow's documentation: No Speech Language Pathologist: Darlyn Garcia M.A., CCC-SUPERVISOR [employer]
[2023-06-27 11:47] LABS: Glucose, Whole Blood 272 mg/dL (60-115)
--- NOTE | 2023-06-27 12:40 | P.PNIM_ITS ---
Subjective Subjective Date of Service: 06/27/23 Interval History: Seen and evaluated very difficult to hear reports feeling better but still having pain in leg no reported fever or chills Review of Systems Review of Systems: Yes Unobtainable due to mental condition Physical Exam Vital Signs: Vital Signs: Last Vital Signs Temp 98.9 F 06/27/23 11:26 Pulse 84 06/27/23 11:30 Resp 20 06/27/23 11:26 BP 159/71 H 06/27/23 11:30 Pulse Ox 97 06/27/23 11:30 O2 Del Method Oxymask 06/27/23 11:26 O2 Flow Rate 4.5 06/27/23 11:26 BMI result Body Mass Index 33.5 Const: Other: Constitutional : Awake, interactive, not in distress Neck : Normal inspection, Supple Cardiovascular : RRR, no JVP, trace lower extremity edema Respiratory : good bilateral air entry, no crackles, wheezes or rhonchi Gastrointestinal: soft, lax, Normal bowel sounds, Non tender Skin : Warm, Dry, LLE with erythema and mild tenderness, no drainage noted Neurological : Alert & oriented x3, No focal deficit Objective Data Active Medications Acetaminophen (Acetaminophen Supp 650 Mg Supp.Rect) 650 mg ME Q6H PRN PRN Reason: Pain, Mild, fever Aspirin (Aspirin Enteric Coated 81 Mg Tablet.Dr) 81 mg PO DAILY [facility] Last Admin: 06/27/23 07:39 Dose: Not Given Documented By: CASSIA Non-Admin Reason: NPO Dextrose (Dextrose 50 % 25 Gm/50 Ml Syringe) 25 gm IVPUSH Q15M PRN; Protocol PRN Reason: per Hypoglycemia Standing Ord. Docusate Sodium (Docusate Sodium 100 Mg Capsule) 100 mg PO DAILY PRN PRN Reason: Constipation Enoxaparin Sodium (Enoxaparin Sodium 100 Mg/Ml Syringe) 100 mg 1 mg/kg (100 mg) SUBCUT Q12H [facility] Last Admin: 06/27/23 05:24 Dose: 100 mg Documented By: LUCIAN Fluticasone/Vilanterol (Fluticasone/Vilanterol 200/25 Blst.W.Dev) 1 puff INHALE RDAILY [facility] Last Admin: 06/27/23 11:05 Dose: Not Given Documented By: CATARINO Non-Admin Reason: Med Not Available Comments: Pharmacy called to bring up meds Glucose (Glucose Gel 15 Gm Gel..Gram.) 15 gm PO Q15M PRN; Protocol PRN Reason: per Hypoglycemia Standing Ord. Sodium Chloride (Ns) 1,000 mls @ 75 mls/hr IVCONT .[id number] [facility] Last Admin: 06/27/23 05:23 Dose: 75 mls/hr Documented By: LUCIAN Piperacillin Sod/Tazobactam (Sod 4.5 gm/ Sodium Chloride) 100 mls @ 200 mls/hr IV Q8H [facility] Last Infusion: 06/27/23 06:10 Dose: 0 mls/hr Documented By: LUCIAN Vancomycin HCl 1,000 mg/ (Sodium Chloride) 270 mls @ 270 mls/hr IV Q24H [facility] Last Infusion: 06/27/23 08:45 Dose: 0 mls/hr Documented By: CASSIA Insulin Glargine (Insulin Glargine,Hum.Rec.Anlog 100 Unit/Ml 10 Ml Vial) 15 unit SUBCUT DAILY [facility] Last Admin: 06/27/23 09:07 Dose: Not Given Documented By: CASSIA Non-Admin Reason: NPO Insulin Glargine (Insulin Glargine,Hum.Rec.Anlog 100 Unit/Ml 10 Ml Vial) 15 unit SUBCUT BEDTIME [facility] Last Admin: 06/26/23 20:29 Dose: 15 unit Documented By: JORDAN Insulin Human Lispro (Insulin Lispro 100 Unit/Ml 3 Ml Vial) 0 unit SUBCUT QIDACHS [facility]; Protocol Lidocaine (Lidocaine 4 % Patch Adh..Patch) 1 patch TRANSDERMA DAILY [facility] Last Admin: 06/27/23 07:49 Dose: 1 patch Documented By: CASSIA Multivitamins/Vitamin C (Multivitamin Tablet) 1 tab PO DAILY [facility] Last Admin: 06/27/23 07:39 Dose: Not Given Documented By: CASSIA Non-Admin Reason: NPO Ondansetron HCl (Ondansetron Hcl 4 Mg/2 Ml Vial) 4 mg IVPUSH Q8H PRN PRN Reason: Nausea and Vomiting Pharmacy Consult (Consult Rx Vancomycin Dosing) 1 each MISCELLANE DAILY PRN PRN Reason: Consult order Pravastatin Sodium (Pravastatin Sodium 40 Mg Tablet) 40 mg PO BEDTIME [facility] Last Admin: 06/26/23 20:29 Dose: 40 mg Documented By: JORDAN Quetiapine Fumarate (Quetiapine Fumarate 25 Mg Tablet) 12.5 mg PO BEDTIME [facility] Last Admin: 06/26/23 20:29 Dose: 12.5 mg Documented By: JORDAN Sodium Chloride (0.9 % Sodium Chloride Flush 3 Ml Syringe) 3 ml IVFLUSH QSHIFT [facility] Last Admin: 06/27/23 07:57 Dose: Not Given Documented By: CASSIA Non-Admin Reason: IV Running Tiotropium Heppner (Tiotropium Heppner 2.5 Mcg Inhaler) 2 puff INHALE RDAILY [facility] Last Admin: 06/27/23 11:05 Dose: Not Given Documented By: CATARINO Non-Admin Reason: Med Not Available Comments: Pharmacy called to bring up meds mid morning Labs 06/27/23 05:30 06/27/23 05:30 Labs: Laboratory Results - last 24 hr 06/26/23 06/26/23 06/26/23 04:32 16:22 17:30 MCV MCH MCHC RDW Plt Count MPV Immature Gran % (Auto) Neut % (Auto) Lymph % (Auto) [place] % (Auto) Eos % (Auto) Baso % (Auto) Lymph # (Auto) [place] # (Auto) Eos # (Auto) Baso # (Auto) Abs Immat Gran (auto) Absolute Neuts (auto) Absolute Nucleated RBC Nucleated RBC % (auto) Anion Gap Estim Creat Clear Calc Estimated GFR POC Glucose 304 H Random Glucose Lactic Acid Calcium Ur Random Sodium 45.0 Urine Creatinine 78.28 Respiratory Panel Spring See Note Adenovirus (Rapid PCR) Not Detected B.pert (TEM-PCR) Not Detected B.parapertussis DNA PCR Not Detected C. pneumoniae DNA (PCR) Not Detected Coronavirus OC43 (PCR) Not Detected Coronavirus HKU1 (PCR) Not Detected Coronavirus 229E (PCR) Not Detected Coronavirus NL63 (PCR) Not Detected Human Metapneumovir PCR Not Detected Influenza A (RT-PCR) Not Detected Influenza B (RT-PCR) Not Detected M. pneumoniae (PCR) Not Detected Parainfluenza 1 (PCR) Not Detected Parainfluenza 2 (PCR) Not Detected Parainfluenza 3 (PCR) Not Detected Parainfluenza 4 (PCR) Not Detected RSV (PCR) Not Detected Entero/Rhino (PCR) Not Detected SARS-CoV-2 RNA (RT-PCR) Not Detected 06/26/23 06/26/23 06/27/23 19:45 20:01 05:30 MCV 85.7 MCH 27.1 MCHC 31.6 RDW 16.5 H Plt Count 318 MPV 10.5 Immature Gran % (Auto) 0.7 H Neut % (Auto) 80.7 H Lymph % (Auto) 13.4 L [place] % (Auto) 4.4 Eos % (Auto) 0.3 Baso % (Auto) 0.5 Lymph # (Auto) 3.1 [place] # (Auto) 1.0 Eos # (Auto) 0.1 Baso # (Auto) 0.1 Abs Immat Gran (auto) 0.16 H Absolute Neuts (auto) 18.3 H Absolute Nucleated RBC 0.000 Nucleated RBC % (auto) 0.0 Anion Gap Estim Creat Clear Calc Estimated GFR POC Glucose 321 H Random Glucose Lactic Acid 1.9 Calcium Ur Random Sodium Urine Creatinine Respiratory Panel Spring Adenovirus (Rapid PCR) B.pert (TEM-PCR) B.parapertussis DNA PCR C. pneumoniae DNA (PCR) Coronavirus OC43 (PCR) Coronavirus HKU1 (PCR) Coronavirus 229E (PCR) Coronavirus NL63 (PCR) Human Metapneumovir PCR Influenza A (RT-PCR) Influenza B (RT-PCR) M. pneumoniae (PCR) Parainfluenza 1 (PCR) Parainfluenza 2 (PCR) Parainfluenza 3 (PCR) Parainfluenza 4 (PCR) RSV (PCR) Entero/Rhino (PCR) SARS-CoV-2 RNA (RT-PCR) 06/27/23 06/27/23 06/27/23 05:30 07:19 11:30 MCV MCH MCHC RDW Plt Count MPV Immature Gran % (Auto) Neut % (Auto) Lymph % (Auto) [place] % (Auto) Eos % (Auto) Baso % (Auto) Lymph # (Auto) [place] # (Auto) Eos # (Auto) Baso # (Auto) Abs Immat Gran (auto) Absolute Neuts (auto) Absolute Nucleated RBC Nucleated RBC % (auto) Anion Gap 12 Estim Creat Clear Calc 46.9 Estimated GFR 54 POC Glucose 266 H 272 H Random Glucose 252 H Lactic Acid Calcium 9.2 D Ur Random Sodium Urine Creatinine Respiratory Panel Spring Adenovirus (Rapid PCR) B.pert (TEM-PCR) B.parapertussis DNA PCR C. pneumoniae DNA (PCR) Coronavirus OC43 (PCR) Coronavirus HKU1 (PCR) Coronavirus 229E (PCR) Coronavirus NL63 (PCR) Human Metapneumovir PCR Influenza A (RT-PCR) Influenza B (RT-PCR) M. pneumoniae (PCR) Parainfluenza 1 (PCR) Parainfluenza 2 (PCR) Parainfluenza 3 (PCR) Parainfluenza 4 (PCR) RSV (PCR) Entero/Rhino (PCR) SARS-CoV-2 RNA (RT-PCR) Microbiology Microbiology Results: Microbiology 06/26/23 Unknown Urine Culture - Final Urine Catheterized - Lopez Catheter No growth. 06/26/23 03:53 Blood Culture - Preliminary Blood - Venous No growth after 24 hours. 06/26/23 03:53 Blood Culture - Preliminary Blood - Venous No growth after 24 hours. Assessment and Plan (1) Recurrent pneumonia: Status: Acute (2) Sepsis: Status: Acute (3) Cellulitis: Status: Acute (4) Acute hypoxemic respiratory failure: Status: Acute (5) DAVID (acute kidney injury): Status: Acute Plan 88-year-old male with history of COPD with chronic hypoxemic respiratory failure non compliant with supplemental O2, unspecified dementia, insulin-dependent type 2 diabetes, history of pulmonary embolism anticoagulated with Eliquis, and unspecified congestive heart failure admitted for pneumonia with severe sepsis and acute on chronic hypoxemic respiratory failure. #Acute on chronic hypoxemic respiratory failure secondary to pneumonia Improving, Wean O2 down as tolerated #Pneumonia with severe sepsis Improving follow blood cultures Continue IV vanco and zosyn (Nasal SA positive, MRSA cannot be excluded) strep pneumo Legionella antigen, sputum culture pending ROOFING [employer]ER evaluation; start diet DC IVF telemetry # acute metabolic encephalopathy secondary to infection, baseline dementia, hearing difficulties continue treatment as above monitor mentation # acute cellulitis left lower extremity IV vanco and Zosyn as above # acute kidney injury Related to infection, improving to baseline #Elevated troponins likely demand due to hypoxemia monitor on telemetry # COPD no acute exacerbation continue maintenance inhalers, albuterol p.r.n. # insulin-dependent type 2 diabetes POC glucose SSI and Lantus # history of pulmonary embolism continue Eliquis # unspecified CHF no acute exacerbation continue po lasix DVT prophylaxis-Eliquis DNR/DNI Patient requires inpatient stay overnights for management of pneumonia with severe sepsis with acute hypoxemic respiratory failure and acute metabolic encephalopathy requiring IV antibiotics, supplemental O2, and close monitoring to prevent decompensation Time Spent With Patient Time: Total time managing care of this patient today ____ minutes. Quality Stroke Does the patient have a stroke diagnosis?: No VTE Prior VTE?: Yes VTE Risk Level:: Medical - moderate - high VTE Device Contraindication: Treatment Not Indicated VTE Drug Contraindication: N/A - Med Ordered
[2023-06-27 16:26] LABS: Glucose, Whole Blood 333 mg/dL (60-115)
[2023-06-27] MEDS: Insulin Lispro 100 UNIT/ML 3 ML VIAL SUBCUT ×2 (16:44→23:05)
[2023-06-27] MEDS: 0.9 % Sodium Chloride Flush 3 ML SYRINGE IVFLUSH ×2 (16:45→23:06)
[2023-06-27 19:49] LABS: Glucose, Whole Blood 296 mg/dL (60-115)
[2023-06-27] MEDS: Pravastatin Sodium 40 MG TABLET PO (23:05)
[2023-06-27] MEDS: Insulin Glargine,Hum.rec.anlog 100 UNIT/ML 10 ML VIAL 15 UNIT SUBCUT ×2 (23:05→23:17)
[2023-06-27] MEDS: QUEtiapine Fumarate 25 MG TABLET 12.5 MG PO (23:05)
[2023-06-28] VITALS: BP 136/65; PULSE 78; RESP 20; TEMP 35.9; O2SAT 95
[2023-06-28 03:22] VITALS: BP 129/63; PULSE 68; RESP 20; TEMP 37.1; O2SAT 95
[2023-06-28] MEDS: Enoxaparin Sodium 100 MG/ML SYRINGE SUBCUT (03:47)
[2023-06-28] MEDS: Piperacillin Sodium/Tazobactam 4.5 GM in 0.9 % Sodium Chloride 100 ML IV (06:40)
[2023-06-28 07:04] VITALS: BP 128/60; PULSE 69; RESP 20; TEMP 37.1; O2SAT 96
[2023-06-28 07:23] LABS: Glucose, Whole Blood 238 mg/dL (60-115)
[2023-06-28 07:29] LABS: Hematocrit 32.4 % (42.0-52.0); Hemoglobin 9.8 g/dl (14.0-18.0); Mean Corpuscular HGB Conc 30.2 g/dl (31.0-36.0); Mean Corpuscular Hemoglobin 26.7 pg (27.0-33.0); Mean Corpuscular Volume 88.3 fL (80.0-98.0); Mean Platelet Volume 11.3 fL (9.4-12.4); Platelet Count 315 X10*3/uL (160-400); Red Blood Count 3.67 X10*6/uL (4.60-5.80); Red Cell Distribution Width 16.5 % (11.0-16.0); White Blood Count 13.6 X10*3/uL (4.8-10.8)
[2023-06-28 07:42] LABS: Anion Gap 9 (12-20); Blood Urea Nitrogen 16 mg/dL (9-16); Calcium 9.4 mg/dL (8.4-10.2); Carbon Dioxide 26 mmol/L (22-29); Chloride 105 mmol/L (96-108); Creatinine Clr Calc Pharmacy 57.8; Estimated Glomerular Filt Rate > 60; Glucose Random 242 mg/dL (60-115); Potassium 3.8 mmol/L (3.3-5.1); Sodium 136 mmol/L (135-145)
--- NOTE | 2023-06-28 08:00 | HE.PHANOTE ---
re:KENDY PATIENTS LEVEL CAME BACK THIS MORNING AT 10. PATIENTS DOSE WAS 1000 MG Q24H. RENAL FUNCTION IMPROVED, IN REGARDS TO SCR LEVEL WENT FROM 1.27 YESTERDAY TO 1.03 TODAY. INDICATION IS RESPIRATORY INFECTION THEREFORE GOING FOR MORE AGGRESSIVE DOSING. INCREASED FROM 1000 MG Q24H TO 1500 MG Q24H. NEXT LEVEL IS TOMORROW 06/29 @0600. PREDICTED AUC 513. WILL MONITOR FOR SAFETY VS EFFICACY
[2023-06-28] MEDS: Insulin Lispro 100 UNIT/ML 3 ML VIAL SUBCUT ×2 (08:21→12:07)
[2023-06-28] MEDS: Aspirin Enteric Coated 81 MG TABLET.DR PO (08:23)
[2023-06-28] MEDS: Multivitamin TABLET 1 TAB PO (08:23)
[2023-06-28] MEDS: vancomycin HCL 1,500 MG in 0.9 % Sodium Chloride 500 ML 333.33 MG IV (08:23)
[2023-06-28] MEDS: Insulin Glargine,Hum.rec.anlog 100 UNIT/ML 10 ML VIAL 15 UNIT SUBCUT (08:23)
[2023-06-28] MEDS: 0.9 % Sodium Chloride Flush 3 ML SYRINGE IVFLUSH (08:24)
[2023-06-28] MEDS: Lidocaine 4 % Patch ADH..PATCH 1 PATCH TRANSDERMA (08:26)
[2023-06-28 08:37] VITALS: PULSE 62; RESP 16; O2SAT 93
--- NOTE | 2023-06-28 10:16 | P.CDIM_ITS ---
PROVIDER RESPONSE TEXT: To clarify, the appropriate diagnosis supported by the clinical indicators: Diabetes mellitus Type 2 with hyperglycemia QUERY TEXT: PHYSICIAN'S DOCUMENTATION REQUEST Date of Query: 06/27/2023 12:53 PM EDT Patient Name: Jose Maria Faith Admit Date: 06/26/2023 Dear Ulises Leiva, A review of the medical record indicates additional documentation may be needed. Please review below and update the documentation accordingly. Clinical Indicators: ED: Chemistry indices demonstrate a normal potassium but patient has DAVID and is not to be hyperglycem ic . POC glucose 321 H Insulin Please clarify the following regarding the Complications of Diabetes Mellitus (DM): Diabetes mellitus Type 2 with hyperglycemia Other please specify Other (explain)Clinically unable to determine (explain)Thank you, Ania Kc, CCS, CDIS Use of terms such as suspected, likely, concern for, or probable (associated with a specific diagnosi s that is being evaluated, monitored, or treated as if it exists) are acceptable and can be coded in the inpatient se tting, when documented at the time of discharge. Please use your independent medical judgment in providing your response. THIS QUERY IS PART OF THE PERMANENT MEDICAL RECORD
--- NOTE | 2023-06-28 10:19 | P.CDIM_ITS ---
PROVIDER RESPONSE TEXT: To clarify, the appropriate diagnosis supported by the clinical indicators: Acute QUERY TEXT: PHYSICIAN'S DOCUMENTATION REQUEST Date of Query: 06/27/2023 12:56 PM EDT Patient Name: Jose Maria Faith Admit Date: 06/26/2023 Dear Ulises Leiva, A review of the medical record indicates additional documentation may be needed. Please review below and update the documentation accordingly. Clinical Indicators: ED: Patient noted to be in DAVID , hyperglycemic with a mild lactic acidosis of 2.8. LA 2.8 3.6 Clarify which of the following accurately represents the acuity of the Lactic acidosis Possible options might include: Acute Acute on chronic Other please specify Other (explain)Clinically unable to determine (explain)Thank you, Ania Kc, CCS, CDIS Use of terms such as suspected, likely, concern for, or probable (associated with a specific diagnosi s that is being evaluated, monitored, or treated as if it exists) are acceptable and can be coded in the inpatient se tting, when documented at the time of discharge. Please use your independent medical judgment in providing your response. THIS QUERY IS PART OF THE PERMANENT MEDICAL RECORD
--- NOTE | 2023-06-28 10:38 | MHC.CM.PN ---
Patient has been medically cleared for dc to home today, with services. [facility] is Patient's [facility] of choice and CM has notified [facility] of today's dc. Last IMM addressed yesterday.
--- NOTE | 2023-06-28 10:41 | P.F2F_ITS ---
Service Date Service Date: 06/28/23 Encounter Date of encounter: 07/25/23 Reasons for Services Signs and symptoms assessed: Swallowing problem physical deconditioning Reason for half-way: teach disease management Reason for physical therapy: home safety and mobility and therapeutic exercises Reason for speech therapy: swallowing impairment Homebound: Leaving the home is medically contraindicated at this time without the asist of a device and/or another person due th the listed conditions above and below. Reason homebound: unsteady gait / fall risk Certification: Based on the above findings, I certify that this patient is confined to the home and needs intermittent half-way care, physical therapy and/or speech therapy, or continues to need occupational therapy. The patient is under my care, and I have initiated the establishment of the plan of care. The patient will be followed by a physician who will periodically review the plan of care. Time Spent With Patient Time: Total time managing care of this patient today ____ minutes.
--- NOTE | 2023-06-28 10:42 | P.DS_ITS ---
DS: Providers Provider Date of Service: 06/28/23 Date of admission: 06/26/23 14:47 Primary care physician: Lexy Naylor NP DS: Diagnosis Discharge Diagnosis (1) Recurrent pneumonia: Status: Acute (2) Sepsis: Status: Acute (3) Cellulitis: Status: Acute (4) Acute hypoxemic respiratory failure: Status: Acute (5) DAIVD (acute kidney injury): Status: Acute DS: Summary Hospital Course Hospital Course: Admission note HPI 88-year-old male with history of COPD with chronic hypoxemic respiratory failure non compliant with supplemental O2, unspecified dementia, insulin-dependent type 2 diabetes, history of pulmonary embolism anticoagulated with Eliquis, and unspecified congestive heart failure presented to the ED via EMS earlier this morning for evaluation. The patient is somnolent but arousable but is not a good historian on exam. History obtained from ED provider/no and who is at bedside. His reports that around 22:00 last night patient was noted to be very weak with subjective fever and chills and ?out of it?. In the middle the night, she awoke and noted his feet or off the bed he was sliding off the side of the bed to the floor. She called EMS and upon arrival, patient was noted to be satting at 76% on room air and was in obvious respiratory distress. His reports he has 1-2 L of supplemental O2 available to him at baseline but typically does not use this. She does report for several weeks has had a nonproductive cough and has shortness of breath chronically but has noted some increased chest congestion. He states they do to check his oxygen level every morning and ranges between 88-95%. On arrival, patient is febrile to 103.8, tachycardic to 115, tachypneic to 37. Given increased work of breathing, he was placed on BiPAP with improvement in work of breathing though still mildly tachypneic to 25 at on admission. Fever treated with Tylenol and has been weaned to OxyMask now maintaining oximetry 90 2-96% on 4 L supplemental O2. No hypotension. He has a significant leukocytosis of 33.8 with 11% bandemia. Creatinine 1.58, BUN 23, electrolyte le vels normal. Initial lactic acid 2.8, repeat 3.0, for hr repeat 3.6. Initial troponin 35.8, repeat 61.8. BNP 148. Urinalysis with 1+ leukocytes, 2+ blood, positive glucose, positive urinary sediment, negative bacteria. Nasal screen positive for MSSA. Negative for influenza, RSV, COVID-19. Chest x-ray shows low lung volumes with chronic diffuse increased markings. Dense consolidation at left lung base seen previously is likely chronic versus recurrent infiltrate. CT chest and abd/pelvis shows 1.5 cm subpleural pulmonary nodule left upper lobe, malignancy is within the differential. There is also mild emphysema with subpleural reticular changes suggestive of interstitial lung disease, right thyroid nodule, and ventral abdominal hernia which contains a loop of nonobstructive transverse colon. In the ED has received IV Zosyn, IV vancomycin, IVF, [place] acetaminophen, and 60 mg IV furosemide. Hospital course #Acute on chronic hypoxemic respiratory failure secondary sepsis from pneumonia Needed BiPAP in ED with significant improvement. Pneumonia treated with IV antibiotics Wean O2 down as tolerated back to his baseline of 3-4L. blood cultures were negative in 48 hours. Treated with IV vanco and zosyn as Nasal SA positive and strep pneumo and Legionella antigen still pending. Evaluated by speech therapist who recommended modified diet as his mental status improved. # acute metabolic encephalopathy At time of presentation which was secondary to infection, baseline mild dementia and respiratory distress. improved after Bipap and treatment of sepsis back to baseline. # acute cellulitis left lower extremity Treated with IV antibiotics with improvement noticed. To continue with PO Antibiotics at time of discharge. # acute kidney injury on presentation, likely prerenal, improved to baseline with IV fluids. #Elevated troponins likely demand due to hypoxemia on admission with no chest pain or EKG changes. monitored on telemetry with no recorded abnormalities. Continue Doxycycline and Ceftin as prescribed Keep left leg clean and elevated , apply moisturizing cream Modified NDD2 diet: Mechanical soft Follow with speech therapist with visiting nurses at home Time Spent with Patient Time attestation: Total time managing care of this patient today ____ minutes. Discharge coordination time: Greater than 30 minutes Quality: Safe Use of Opioids Does Pt have an Active Cancer Diagnosis on the Problem List?: No Quality: Stroke Does the patient have a stroke diagnosis?: No Physical Exam Vital Signs: Vital Signs: Last Vital Signs Temp 98.7 F 06/28/23 07:04 Pulse 62 06/28/23 08:37 Resp 16 06/28/23 08:37 BP 128/60 06/28/23 07:04 Pulse Ox 96 06/28/23 07:04 O2 Del Method Nasal Cannula 06/28/23 07:04 O2 Flow Rate 4 06/28/23 07:04 BMI result Body Mass Index 33.5 Const: Other: Constitutional : Awake, interactive, not in distress Neck : Normal inspection, Supple Cardiovascular : RRR, no JVP, trace lower extremity edema Respiratory : good bilateral air entry, basal fine crackles, no wheezes or rhonchi Gastrointestinal: soft, lax, Normal bowel sounds, Non tender Skin : Warm, Dry, LLE with erythema and mild tenderness, no drainage noted Neurological : Alert & oriented x3, No focal deficit DS: Data Data Completed and Pending Labs on day of discharge: Laboratory Results - last 24 hr 06/27/23 06/27/23 06/27/23 11:30 16:22 19:40 WBC RBC Hgb Hct MCV MCH MCHC RDW Plt Count MPV Absolute Nucleated RBC Nucleated RBC % (auto) Sodium Potassium Chloride Carbon Dioxide Anion Gap BUN Creatinine Estim Creat Clear Calc Estimated GFR POC Glucose 272 H 333 H 296 H Random Glucose Calcium Random Vancomycin 06/28/23 06/28/23 06/28/23 06:36 07:07 Unknown WBC 13.6 H RBC 3.67 L Hgb 9.8 L Hct 32.4 L MCV 88.3 MCH 26.7 L MCHC 30.2 L RDW 16.5 H Plt Count 315 MPV 11.3 Absolute Nucleated RBC 0.000 Nucleated RBC % (auto) 0.0 Sodium 136 Potassium 3.8 Chloride 105 Carbon Dioxide 26 Anion Gap 9 L BUN 16 Creatinine 1.03 Estim Creat Clear Calc 57.8 Estimated GFR > 60 POC Glucose 238 H Random Glucose 242 H Calcium 9.4 Random Vancomycin 10.0 L Preliminary micro results at discharge 06/26/23 03:53 Blood Culture - Preliminary Blood - Venous No growth after 48 hours. 06/26/23 03:53 Blood Culture - Preliminary Blood - Venous No growth after 48 hours. Imaging Chest x-ray: Radiologist's impression: ITS Impressions Chest X-Ray 06/26/23 03:43 IMPRESSION: 1. Low lung volumes limits evaluation. 2. Chronic diffuse increased markings. 3. Dense consolidative change at the left lung base was seen previously and is likely chronic versus recurrent infiltrate. Abdomen/Pelvis CT 06/26/23 06:26 IMPRESSION: 1. 1.5 cm subpleural pulmonary nodule of the left upper lobe. Malignancy is within the differential. 2. Mild emphysema with subpleural reticular changes suggesting interstitial lung disease. 3. Right thyroid nodule. 4. Ventral abdominal hernia which contains a loop of nonobstructed transverse colon. Chest CT 06/26/23 06:26 IMPRESSION: 1. 1.5 cm subpleural pulmonary nodule of the left upper lobe. Malignancy is within the differential. 2. Mild emphysema with subpleural reticular changes suggesting interstitial lung disease. 3. Right thyroid nodule. 4. Ventral abdominal hernia which contains a loop of nonobstructed transverse colon. Discharge Plan Discharge Anticipated Discharge Date/Time: 06/28/23 10:27 Patient Disposition: Home Health Service Discharge Diagnosis: Left leg cellulitis Pneumonia Kidney injury Referrals: [facility] [Outside] - 1 Week Lexy Naylor, [facility] [Primary Care Provider] - 1 Week Discharge Medications: New doxycycline monohydrate 100 mg capsule 100 mg PO BID Qty: 14 0RF cefuroxime axetil 500 mg tablet 500 mg PO BID Qty: 14 0RF Continued lidocaine 5 % Adhesive Patch,Medicated 1 patch TOPICAL DAILY Rx Instructions: leave on most painful area for up to 12 hrs aspirin 81 mg Tablet,Delayed Release (Dr/Ec) 81 mg PO DAILY fluticasone propion-salmeterol [Advair Diskus] 500-50 mcg/dose Blister With Device 1 inh INHALATION BID insulin aspart U-100 [Novolog FlexPen U-100 Insulin] 100 unit/mL (3 mL) Insulin Pen 9 unit SUBCUT DAILY@1130 insulin aspart U-100 [Novolog FlexPen U-100 Insulin] 100 unit/mL (3 mL) Insulin Pen 13 unit SUBCUT DAILY@0730 multivitamin Tablet 1 tab PO DAILY insulin glargine [Lantus U-100 Insulin] 100 unit/mL Solution 20 unit SUBCUT BEDTIME omega-3 fatty acids-fish oil [Fish Oil] 360-1,200 mg Capsule 2 cap PO DAILY Spiriva Respimat 2.5 mcg/actuation Mist 2 puff INHALATION DAILY (DME) FreeStyle Reva 14 Day Sensor Kit See Rx Instructions .ROUTE Q2W Qty: 1 Rx Instructions: As directed pravastatin 40 mg tablet 40 mg PO BEDTIME apixaban 5 mg tablet 2.5 mg PO BID furosemide 40 mg tablet 40 mg PO DAILY glucose [Dex4 Glucose] 4 gram tablet,chewable 4 g PO Q15M PRN (Reason: Hypoglycemia) Rx Instructions: until symptoms of low blood sugar are controlled insulin glargine 100 unit/mL solution 15 unit subcut DAILY insulin aspart U-100 [Novolog FlexPen U-100 Insulin] 100 unit/mL (3 mL) insulin pen 17 unit subcut DAILY@1700 quetiapine 25 mg tablet 12.5 mg PO BEDTIME Discharge Orders: Discharge Order (Routine); Ordered 06/28/23 Ordered By: Ulises Leiva Diet: NDD2: Ground diet Activity on Discharge: As tolerated Stand Alone Forms: Patient Portal Discharge page Care Plan Goals: Read below Health Concerns: Read below Plan of Treatment: Read below Assessment: You were admitted to the hospital for treatment of difficulties breathing. found to have evidence of pneumonia and leg cellulitis responded well to treatment with antibiotics as Oxygen requirements are back to baseline. You were evaluated by speech therapist who recommended modified ground diet for now. Continue Doxycycline and Ceftin as prescribed Keep left leg clean and elevated , apply moisturizing cream Modified NDD2 diet: Mechanical soft Follow with speech therapist with visiting nurses at home
[2023-06-28 10:56] VITALS: BP 129/59; PULSE 66; RESP 20; TEMP 36.9; O2SAT 95
[2023-06-28 11:13] LABS: Glucose, Whole Blood 300 mg/dL (60-115)
[2023-06-28] MEDS: Furosemide 40 MG TABLET PO (12:07)
--- NOTE | 2023-06-28 14:02 | MHC.SL.SWA ---
Speech Pathologist Impression: Risk of Aspiration Due to: History of Pneumonia Reduced Cognition Dysphasia Diet Status: While inpatient, recommend continue on Ground Mechanical/Altered (NDD2) with Thin liquids, pills whole with liquid. Liquid Consistency and Strategies for Safe Swallow: Liquid Intake Recommendation: Thin Liquid Intake Strategies: Small Sips No Straws Solid Food Consistency: Dietary Recommendations: Grnd/Mech Altered (NDD2) Additional Modifications to Solid Foods: Oral Medication Intake: Whole with Liquid Please contact the pharmacy regarding appropriate crushable or liquid drug formulations that are available whenever modified delivery is recommended. Compensatory Strategies and Precautions to be Taken for Safe Swallow: Sitting Upright (90 deg) Liquids from Cup Small Bites and Sips Alternate Liquids/Solids Supervision While Eating and Drinking for Safe Swallow: Intermittent Supervision Foods to Avoid: Avoid dry, sticky, tough to chew foods Swallowing Recommended Treatments: Compens. Strategy Educat. Recommendation for Speech: Outpatient Speech Therapy Inpatient Speech Therapy Comment: Patient seen during lunch meal, which patient was eating independently with in room when therapist entered for treatment session. Patient had already eaten half of meal, was observed taking ground meat with gravy by forkful, has slowed rate of mastication, timely swallow. Patient also observed taking cups sips of liquid, noted to take small sips, produce timely swallow. Patient's with questions about diet. Per , patient was previously on regular diet with no modifications. Patient likely to be discharged later today back to home. Recommended to that patient could resume normal diet at home, although starting with some softer food initially. While inpatient, recommend continue on Ground Mechanical/Altered (NDD2) with Thin liquids, pills whole with liquid. Frequency/Duration: Date Range for Service Req: Timeline to reassess: Debt Management Counselor Clinican/Clinical Fellow: No Supervisory Statement: I have reviewed and agree with the student/clinical fellow's documentation: No Speech Language Pathologist: Annalisa Mittal M.A., CCC-FUEL AGENT
[2023-07-01 00:28] LABS: Strep Pneumo Ag urine Not Detected (Not Detected)
[2023-07-02 04:50] LABS: Legionella Ag Urine Not Detected (Not Detected)
== END 2023-06-28 15:00 | disposition home health service (06) | DRG 871 ==
LOC: HO.ED 07:06 → HO.EDOVER 14:58 → HO.IMC 15:35
PROVIDERS: Internal Medicine; Student in an Organized Health Care Education/Training Program; Admitting Provider Physician Assistant; Emergency Provider Emergency Medicine; PCP Nurse Practitioner Family; Visit Provider Student in an Organized Health Care Education/Training Program
DX: A41.9 Sepsis, unspecified organism (principal); G93.41 Metabolic encephalopathy; J18.9 Pneumonia, unspecified organism; J96.21 Acute and chronic respiratory failure with hypoxia; L03.116 Cellulitis of left lower limb; N17.9 Acute kidney failure, unspecified; J44.0 Chronic obstructive pulmonary disease with (acute) lower respiratory infection; E87.21 Acute metabolic acidosis; Z66 Do not resuscitate; R91.1 Solitary pulmonary nodule; R65.20 Severe sepsis without septic shock; I50.9 Heart failure, unspecified; E11.65 Type 2 diabetes mellitus with hyperglycemia; F03.90 Unspecified dementia, unspecified severity, without behavioral disturbance, psychotic disturbance, mood disturbance, and anxiety; Z20.822 Contact with and (suspected) exposure to COVID-19; Z91.199 Patient's noncompliance with other medical treatment and regimen due to unspecified reason; Z86.711 Personal history of pulmonary embolism; Z99.81 Dependence on supplemental oxygen; Z79.4 Long term (current) use of insulin; Z79.01 Long term (current) use of anticoagulants; Z79.51 Long term (current) use of inhaled steroids; Z79.899 Other long term (current) drug therapy
CPT/HCPCS: 0241U; 36415; 71045; 71250; 74176; 80048; 80053; 80202; 81001; 82570; 82803; 82947; 83605; 83880; 84300; 84484; 85007; 85025; 85027; 85610; 87040; 87086; 87449; 87633; 87640; 87641; 87899; 92507; 92610; 93005; 94640; 97162; 99285; C1758; J1650; J1940; J2543; J3370; J3371

== ENCOUNTER → 2023-06-26 14:47 | Outpatient (BNV) | payer MEDICARE, SELFPAY | PROVIDERS: Admitting Provider Physician Assistant; Emergency Provider Emergency Medicine; PCP Nurse Practitioner Family; Visit Provider Physician Assistant | DX: A41.9 Sepsis, unspecified organism (principal); J96.21 Acute and chronic respiratory failure with hypoxia; N17.9 Acute kidney failure, unspecified; J18.9 Pneumonia, unspecified organism; L03.116 Cellulitis of left lower limb | CPT/HCPCS: 99223; 99233; 99239; G0180 ==